=== PATIENT | male | born 1985 | race African-American/Black ===

== ENCOUNTER 2023-06-15 19:42 | Emergency (ER) | payer OTHER, SELFPAY ==
--- NOTE | 2023-06-15 | ECG_ITS ---
Test Reason : CHEST TIGHTNESS Blood Pressure : / mmHG Vent. Rate : 073 BPM Atrial Rate : 073 BPM P-R Int : 168 ms QRS Dur : 094 ms QT Int : 370 ms P-R-T Axes : 032 029 032 degrees QTc Int : 407 ms Normal sinus rhythm Cannot rule out Anterior infarct , age undetermined - could be related to body habitus Abnormal ECG No previous ECGs available Referred By: Generic ED Physician Electronically Signed By:CAROLE TRUONG
[2023-06-15 19:57] VITALS: BP 170/98; PULSE 84; O2SAT 94
[2023-06-15 21:19] VITALS: BP 155/102; PULSE 78; RESP 20; TEMP 36.6; O2SAT 98; BMI 56.3
[2023-06-15 22:27] LABS: MANUAL DIFF FLAG NO
[2023-06-15 22:28] LABS: Basophils Percent Auto 0.5 % (0-2); Eosinophils Absolute Auto 0.1 X10*3/uL (0.0-0.4); Eosinophils Percent Auto 0.8 % (0-4); Hematocrit 43.2 % (42.0-52.0); Hemoglobin 13.9 g/dl (14.0-18.0); Imm Gran Abs Auto 0.02 X10*3/uL (0.00-0.03); Imm Gran Pct Auto 0.2 % (0.0-0.4); Lymphocytes Absolute Auto 2.1 X10*3/uL (1.2-4.9); Lymphocytes Percent Auto 24.4 % (20-40); Mean Corpuscular HGB Conc 32.2 g/dl (31.0-36.0); Mean Corpuscular Hemoglobin 27.4 pg (27.0-33.0); Mean Platelet Volume 9.9 fL (9.4-12.4); Monocytes Absolute Auto 0.5 X10*3/uL (0.1-1.2); Monocytes Percent Auto 6.3 % (2-11); Neutrophils Absolute Auto 5.8 x10*3/uL (2.0-8.3); Neutrophils Percent Auto 67.8 % (45-73); Platelet Count 241 X10*3/uL (160-400); Red Blood Count 5.08 X10*6/uL (4.60-5.80); Red Cell Distribution Width 13.8 % (11.0-16.0); White Blood Count 8.5 X10*3/uL (4.8-10.8)
[2023-06-15 22:41] LABS: Alanine Aminotransferase 29 U/L (0-40); Albumin Level 4.4 g/dL (3.5-5.0); Alkaline Phosphatase 77 U/L (39-117); Anion Gap 10 (12-20); Aspartate Amino Transferase 19 U/L (5-37); Bilirubin Direct 0.1 mg/dL (0.0-0.5); Bilirubin Total 0.4 mg/dL (0.0-1.0); Blood Urea Nitrogen 12 mg/dL (9-16); Calcium 9.5 mg/dL (8.4-10.2); Carbon Dioxide 29 mmol/L (22-29); Chloride 104 mmol/L (96-108); Creatinine Clr Calc Pharmacy 161.1; Estimated Glomerular Filt Rate > 60; Glucose Random 96 mg/dL (60-115); Lipase 8 U/L (8-78); Potassium 4.3 mmol/L (3.3-5.1); Sodium 139 mmol/L (135-145); Total Protein 7.6 g/dL (6.5-8.0)
--- NOTE | 2023-06-15 22:51 | ED_ITS ---
HPI - General Adult General Chief complaint: General Medical Stated complaint: muscle cramps, tightness, diziness, nausea Time Seen by Provider: 06/15/23 22:40 Source: patient Mode of arrival: ambulatory Limitations: no limitations History of Present Illness HPI narrative: Patient comes to the emergency room muscle cramps, generalized weakness, right- sided chest pain. Patient states all his symptoms started approximately 2 weeks ago. Patient states that he was recently hospitalized in [facility], some of his psych meds were switched and patient believes this may be a side effect of his meds. Patient denies any shortness of breath, no syncopal episodes. Related Data Previous Rx's Medication Instructions Recorded cyclobenzaprine 10 mg tablet 10 mg PO TID PRN muscle spasm #10 06/16/23 tabs Allergies Allergy/AdvReac Type Severity Reaction Status Date / Time haloperidol [From Haldol] Allergy Muscle Verified 06/15/23 21:23 cramps shrimp Allergy Itching Verified 06/15/23 21:23 Review of Systems 2 Review of Systems: Constitutional : No Weight loss, No Fever, No Chills, No Night Sweats, No Fatigue, No Malaise ENT/Mouth : No Hearing loss, No Ear Pain, No Nasal Congestion, No Sinus Pain, No Hoarseness, No sore throat, No Rhinorrhea, No Swallowing Difficulty Eyes: No Eye Pain, No Swelling, No Redness, No Foreign Body, No Discharge, No Vision Changes Cardiovascular : Complaining of muscular tightness in the right side of the chest, No Chest Pain, No SOB, No Dyspnea on Exertion, No Orthopnea, No Edema, No Palpitations Respiratory : No Cough, No Sputum, No Wheezing, No Smoke Exposure, No Dyspnea Gastrointestinal : No Nausea, No Vomiting, No Diarrhea, No Constipation, No abdominal Pain, No Hematochezia, No Melena Genitourinary : no irregular bleeding, No Dysuria, No Urinary Frequency, No Hematuria, No Urinary Incontinence, No Urgency, No Flank Pain, No Urinary Flow Changes, No Hesitancy Musculoskeletal complaining of diffuse muscular aches, cramping Skin : No Skin Lesions, No rash Neuro : No Weakness, No Numbness, No Paresthesias, No Loss of Consciousness, No Dizziness, No Headache Psych : No Anxiety/Panic, No Depression, No SI/HI/AH/VH, No Social Issues, Heme/Lymph: No Bruising, No Bleeding,No Lymphadenopathy Endocrine : No Polyuria, No Polydipsia, No Temperature Intolerance [facility] Past Medical History Medical History Psychiatric disorder Social History Social History Smoked in Last 30 Days: Yes Use of substances other than those prescribed or required for medical reasons: No Advance Directives: No Advance Directives Information Provided: Yes Physical Exam ED Vital Signs: Vital Signs - 24 hr 06/15/23 21:19 06/15/23 23:37 06/15/23 23:39 Temperature 97.8 F 97.8 F Pulse Rate 78 74 74 Respiratory Rate 20 18 Blood Pressure 155/102 H 130/76 130/76 Pulse Oximetry 98 98 Oxygen Delivery Method Room Air Room Air 06/15/23 23:39 06/15/23 23:39 Temperature Pulse Rate 74 89 Respiratory Rate Blood Pressure 143/69 H 143/79 H Pulse Oximetry Oxygen Delivery Method BMI result Body Mass Index 56.3 Const Other: Appearance: Alert. Oriented X3. No acute distress. Eyes: Pupils equal, round and reactive to light. ENT: Pharynx normal. Neck: Normal inspection. Neck supple. No lymph nodes noted. No crepitus CVS: Normal heart rate and rhythm. Pulses normal. Normal S1 and S2 Respiratory: No respiratory distress. Breath sounds normal. No Wheezing. No rales Abdomen: Soft and nontender. No rigidity. No distention. Skin: Skin warm and dry. Normal skin color. Normal skin turgor. Old healed cutting scars in the left forearm Extremities: No lower extremity edema. No Lacerations. No Rash Neuro: Oriented X 3. No motor deficit. No sensory deficit. Moving all extremities. No slurred speech. CN 2 through 12 grossly intact Psych: calm, cooperative, normal affect Medical Decision Making Medical Decision Making [facility] Narrative: -my interpretation of labs: Normal hematology, normal chemistry, troponin negative, negative serology for influenza RSV and COVID -I discussed with the patient that his symptoms are likely secondary to his psych meds. At this time, patient does not have any muscular stiffness, no fever. Serotonin syndrome and neuroleptic malignant syndrome are not suspected Differential Diagnosis Differential Diagnoses: The differential diagnosis associated with the presentation includes (Medication side effect, viral syndrome, dehydration) Lab Data [facility] Lab Attestation statement: I reviewed the patient's lab results. 06/15/23 22:20 06/15/23 22:20 Labs: Lab Results 06/15/23 06/15/23 Range/Units 22:16 22:20 WBC 8.5 (4.8-10.8) X10*3/uL RBC 5.08 (4.60-5.80) X10*6/uL Hgb 13.9 L (14.0-18.0) g/dl Hct 43.2 (42.0-52.0) % MCV 85.0 (80.0-98.0) fL MCH 27.4 (27.0-33.0) pg MCHC 32.2 (31.0-36.0) g/dl RDW 13.8 (11.0-16.0) % Plt Count 241 (160-400) X10*3/uL MPV 9.9 (9.4-12.4) fL Immature Gran % (Auto) 0.2 (0.0-0.4) % Neut % (Auto) 67.8 (45-73) % Lymph % (Auto) 24.4 (20-40) % [place] % (Auto) 6.3 (2-11) % Eos % (Auto) 0.8 (0-4) % Baso % (Auto) 0.5 (0-2) % Lymph # (Auto) 2.1 (1.2-4.9) X10*3/uL [place] # (Auto) 0.5 (0.1-1.2) X10*3/uL Eos # (Auto) 0.1 (0.0-0.4) X10*3/uL Baso # (Auto) 0.0 (0.0-0.2) X10*3/uL Abs Immat Gran (auto) 0.02 (0.00-0.03) X10*3/uL Absolute Neuts (auto) 5.8 (2.0-8.3) x10*3/uL Absolute Nucleated RBC 0.000 (0.0-0.012) X10*3/uL Nucleated RBC % (auto) 0.0 (0.0-0.2) /100WBC Sodium 139 (135-145) mmol/L Potassium 4.3 (3.3-5.1) mmol/L Chloride 104 (96-108) mmol/L Carbon Dioxide 29 (22-29) mmol/L Anion Gap 10 L (12-20) BUN 12 (9-16) mg/dL Creatinine 1.00 (0.5-1.4) mg/dL Estim Creat Clear Calc 161.1 Estimated GFR > 60 Random Glucose 96 (60-115) mg/dL Calcium 9.5 (8.4-10.2) mg/dL Total Bilirubin 0.4 (0.0-1.0) mg/dL Direct Bilirubin 0.1 (0.0-0.5) mg/dL AST 19 (5-37) U/L ALT 29 (0-40) U/L Alkaline Phosphatase 77 (39-117) U/L Troponin I High Sens < 2.7 (<3.5-35.0) ng/L Total Protein 7.6 (6.5-8.0) g/dL Albumin 4.4 (3.5-5.0) g/dL Lipase 8 (8-78) U/L Influenza Type A (PCR) NEGATIVE (Negative) Influenza Type B (PCR) NEGATIVE (Negative) RSV RNA Qual (PCR) NEGATIVE (Negative) SARS-CoV-2 RNA (RT-PCR) NEGATIVE (Negative) Discharge Plan Discharge Clinical Impression: Body aches, Medication side effect Patient Disposition: Home, Self-Care Instructions: Musculoskeletal Pain (ED) Additional Instructions: Please follow-up with your medical providers tomorrow. Some of your medications may need to be weaned down or be changed. This time we will not change any of her medications. Please follow-up with your primary care physician tomorrow. If you have any worsening or new symptoms, please return to the emergency room or call 911 Prescriptions: New cyclobenzaprine 10 mg tablet 10 mg PO TID PRN (Reason: muscle spasm) Qty: 10 0RF
[2023-06-15 23:04] LABS: Influenza A PCR NEGATIVE (Negative); Influenza B PCR NEGATIVE (Negative); Resp Syncy Virus RNA Qual PCR NEGATIVE (Negative); SARS COV2 PCR INHOUSE NEGATIVE (Negative)
[2023-06-15 23:14] LABS: Troponin-I High Sensitivity < 2.7 ng/L (<3.5-35.0)
--- NOTE | 2023-06-15 23:23 | MHC.EDTECH ---
Per Doctors request,patient was giving a turkey sandwich and a can of ginegerale
--- NOTE | 2023-06-15 23:35 | MHC.EDTECH ---
Patient ate 100%of food, Ortho Static vitals were done. patient is resting comfortably at this time and call vazquez within reach
[2023-06-15 23:37] VITALS: BP 130/76; PULSE 74; RESP 18; TEMP 36.6; O2SAT 98
[2023-06-15 23:39] VITALS: BP 130/76; BP 143/69; BP 143/79; PULSE 74; PULSE 89
--- NOTE | 2023-06-16 00:03 | PC.NURSE ---
pt from home, a&ox4, respirations even and unlabored. pt reporting one week of dizziness, nausea and intermittent vomiting, pt reports inability to keep po foods down. pt reports he has been moving normal bowels, and normal urinary habits. pt reports mild abdominal cramping.
== END 2023-06-16 00:54 | disposition home or self-care (01) ==
PROVIDERS: Emergency Provider Emergency Medicine
DX: R07.89 Other chest pain (principal); R52 Pain, unspecified
CPT/HCPCS: 0241U; 36415; 80048; 80076; 83690; 84484; 85025; 93005; 99283; 99284

== ENCOUNTER → 2023-06-15 22:10 | Outpatient (BNV) | payer OTHER, SELFPAY | PROVIDERS: Emergency Provider Emergency Medicine; Visit Provider Internal Medicine | DX: R07.89 Other chest pain (principal) | CPT/HCPCS: 93010 ==

== ENCOUNTER 2023-07-10 23:19 | Emergency (ER) | payer OTHER, SELFPAY ==
[2023-07-10 23:32] VITALS: BP 134/74; BP 184/110; PULSE 85; PULSE 88; RESP 16; TEMP 36.8; O2SAT 97; O2SAT 98; BMI 55.1
--- NOTE | 2023-07-11 00:19 | MHC.EDTECH ---
Patient brought into triage area,labs,and a urine sample obtained and sent to lab.
[2023-07-11 00:24] LABS: Basophils Percent Auto 0.3 % (0-2); Eosinophils Absolute Auto 0.1 X10*3/uL (0.0-0.4); Eosinophils Percent Auto 0.8 % (0-4); Hematocrit 41.6 % (42.0-52.0); Hemoglobin 13.2 g/dl (14.0-18.0); Imm Gran Abs Auto 0.01 X10*3/uL (0.00-0.03); Imm Gran Pct Auto 0.2 % (0.0-0.4); Lymphocytes Absolute Auto 1.7 X10*3/uL (1.2-4.9); Lymphocytes Percent Auto 27.4 % (20-40); MANUAL DIFF FLAG NO; Mean Corpuscular HGB Conc 31.7 g/dl (31.0-36.0); Mean Corpuscular Volume 85.1 fL (80.0-98.0); Mean Platelet Volume 9.5 fL (9.4-12.4); Monocytes Absolute Auto 0.4 X10*3/uL (0.1-1.2); Monocytes Percent Auto 6.2 % (2-11); Neutrophils Absolute Auto 4.1 x10*3/uL (2.0-8.3); Neutrophils Percent Auto 65.1 % (45-73); Platelet Count 210 X10*3/uL (160-400); Red Blood Count 4.89 X10*6/uL (4.60-5.80); Red Cell Distribution Width 13.4 % (11.0-16.0); White Blood Count 6.3 X10*3/uL (4.8-10.8)
[2023-07-11 00:31] LABS: Appearance Urine Clear; Color Urine Yellow; Glucose Urine UA Negative (Negative); Leukocyte Esterase Urine Trace (Negative); Nitrite Urine Negative (Negative); UMIC TRIGGER UACC YES; Urine Blood Negative (Negative); Urine Ketones Trace mg/dL (Negative); Urine Protein Negative (Neg-Trace)
[2023-07-11 00:34] LABS: Bacteria Urine None Seen (None Seen); Hyaline Casts Urine 0-2 /LPF (0-2); RBC Urine 0-2 /HPF (0-2); Squamous Epithelial Cell Urine 0-2 /HPF (0-2); WBC Urine 0-5 /HPF (0-5)
[2023-07-11 00:40] LABS: Alanine Aminotransferase 33 U/L (0-40); Albumin Level 4.2 g/dL (3.5-5.0); Alkaline Phosphatase 65 U/L (39-117); Anion Gap 14 (12-20); Aspartate Amino Transferase 21 U/L (5-37); Bilirubin Total 0.3 mg/dL (0.0-1.0); Blood Urea Nitrogen 12 mg/dL (9-16); Calcium 9.2 mg/dL (8.4-10.2); Carbon Dioxide 26 mmol/L (22-29); Chloride 103 mmol/L (96-108); Creatinine Clr Calc Pharmacy 150.1; Estimated Glomerular Filt Rate > 60; Glucose Random 103 mg/dL (60-115); Sodium 139 mmol/L (135-145); Total Protein 7.2 g/dL (6.5-8.0)
[2023-07-11 02:26] VITALS: BP 160/100; PULSE 70; RESP 19; TEMP 36.7; O2SAT 98
--- NOTE | 2023-07-11 02:56 | ED_ITS ---
HPI - Abdominal Pain General Chief Complaint: Abdominal Pain Stated Complaint: ABD PAIN Time Seen by Provider: 07/11/23 02:54 Source: patient Mode of arrival: ambulatory Limitations: no limitations History of Present Illness HPI narrative: Patient history of anxiety depression recently change the medication trazodone in the nighttime to sleep not able to sleep complaining of diffuse abdominal pain with increased gas no fever no chills no vomiting patient with multiple complaints noticed to be in the waiting area eating food/chips Related Data Home Medications Medication Instructions Recorded Confirmed trazodone 50 mg tablet 100 mg PO BEDTIME 07/11/23 07/11/23 Previous Rx's Medication Instructions Recorded cephalexin 500 mg capsule 500 mg PO QID 10 days #40 caps 07/11/23 dicyclomine 20 mg tablet 20 mg PO TID #20 tabs 07/11/23 doxycycline hyclate 100 mg tablet 100 mg PO BID #20 tabs 07/11/23 omeprazole 40 mg capsule,delayed 40 mg PO DAILY #30 caps 07/11/23 release Allergies Allergy/AdvReac Type Severity Reaction Status Date / Time haloperidol [From Haldol] Allergy Muscle Verified 06/15/23 21:23 cramps shrimp Allergy Itching Verified 06/15/23 21:23 Review of Systems Review of Systems Yes all other systems are reviewed and are negative PMFSH Past Medical History Medical History Psychiatric disorder Social History Social History Advance Directives: No Advance Directives Information Provided: Yes Physical Exam ED Vital Signs: Vital Signs - 24 hr 07/10/23 23:32 07/11/23 02:26 Temperature 98.3 F 98.0 F Pulse Rate 85 70 Respiratory Rate 16 19 Blood Pressure 184/110 H 160/100 H Pulse Oximetry 97 98 Oxygen Delivery Method Room Air Room Air BMI result Body Mass Index 55.1 Appearance: Alert. Oriented X3. No acute distress. Obese Eyes: PERRLA, No Nystagmus ENT: Pharynx normal. Oral Mucosa moist Neck: Normal inspection. Neck supple. CVS: Normal heart rate and rhythm. Pulses normal. Respiratory: No respiratory distress. Equal air entry bilateral, no wheezing/rales/rhonchi Abdomen: Soft mild epigastric discomfort Bowel sounds are present, no mass palpable, no CVA tenderness Skin: Skin warm and dry. Normal skin color. Normal skin turgor. Small abscess in left gluteal area draining Extremities: No lower extremity edema. No calf tenderness psych: Anxious no SI or HI no hallucination or delusion Neuro: Oriented X 3. No motor deficit. Medical Decision Making Medical Decision Making [facility] Narrative: Patient nonspecific multiple complaints with anxiety and depression as a follow- up plan with psychiatrist will discharge patient home on Prilosec and bentyl Differential Diagnosis Differential Diagnoses: The differential diagnosis associated with the presentation includes Gastritis/IBS/anxiety/depression Lab Data [facility] Lab Attestation statement: I reviewed the patient's lab results. 07/11/23 00:18 07/11/23 00:18 Labs: Lab Results 07/11/23 Range/Units 00:18 WBC 6.3 (4.8-10.8) X10*3/uL RBC 4.89 (4.60-5.80) X10*6/uL Hgb 13.2 L (14.0-18.0) g/dl Hct 41.6 L (42.0-52.0) % MCV 85.1 (80.0-98.0) fL MCH 27.0 (27.0-33.0) pg MCHC 31.7 (31.0-36.0) g/dl RDW 13.4 (11.0-16.0) % Plt Count 210 (160-400) X10*3/uL MPV 9.5 (9.4-12.4) fL Immature Gran % (Auto) 0.2 (0.0-0.4) % Neut % (Auto) 65.1 (45-73) % Lymph % (Auto) 27.4 (20-40) % [place] % (Auto) 6.2 (2-11) % Eos % (Auto) 0.8 (0-4) % Baso % (Auto) 0.3 (0-2) % Lymph # (Auto) 1.7 (1.2-4.9) X10*3/uL [place] # (Auto) 0.4 (0.1-1.2) X10*3/uL Eos # (Auto) 0.1 (0.0-0.4) X10*3/uL Baso # (Auto) 0.0 (0.0-0.2) X10*3/uL Abs Immat Gran (auto) 0.01 (0.00-0.03) X10*3/uL Absolute Neuts (auto) 4.1 (2.0-8.3) x10*3/uL Absolute Nucleated RBC 0.000 (0.0-0.012) X10*3/uL Nucleated RBC % (auto) 0.0 (0.0-0.2) /100WBC Sodium 139 (135-145) mmol/L Potassium 4.0 (3.3-5.1) mmol/L Chloride 103 (96-108) mmol/L Carbon Dioxide 26 (22-29) mmol/L Anion Gap 14 (12-20) BUN 12 (9-16) mg/dL Creatinine 1.06 (0.5-1.4) mg/dL Estim Creat Clear Calc 150.1 Estimated GFR > 60 Random Glucose 103 (60-115) mg/dL Calcium 9.2 (8.4-10.2) mg/dL Total Bilirubin 0.3 (0.0-1.0) mg/dL AST 21 (5-37) U/L ALT 33 (0-40) U/L Alkaline Phosphatase 65 (39-117) U/L Total Protein 7.2 (6.5-8.0) g/dL Albumin 4.2 (3.5-5.0) g/dL Urine Color Yellow Urine Appearance Clear Urine pH 6.0 (5.0-9.0) Ur Specific [place] 1.020 (1.005-1.025) Urine Protein Negative (Neg-Trace) mg/dL Urine Glucose (UA) Negative (Negative) mg/dL Urine Ketones Trace (Negative) mg/dL Urine Blood Negative (Negative) Urine Nitrite Negative (Negative) Ur Leukocyte Esterase Trace H (Negative) Urine RBC 0-2 (0-2) /HPF Urine WBC 0-5 (0-5) /HPF Ur Squamous Epith Cells 0-2 (0-2) /HPF Urine Bacteria None Seen (None Seen) Hyaline Casts 0-2 (0-2) /LPF Medications Administered Discontinued Medications Generic Name Dose Route Start Last Admin Trade Name Freq PRN Reason Stop Dose Admin Cephalexin HCl 500 mg 07/11/23 04:01 07/11/23 04:13 Cephalexin 500 Mg Capsule PO 07/11/23 04:02 500 mg ONCE ONE Administration Dicyclomine HCl 20 mg 07/11/23 03:56 07/11/23 04:13 Dicyclomine Hcl 10 Mg Capsule PO 07/11/23 03:57 20 mg ONCE ONE Administration Doxycycline Monohydrate 100 mg 07/11/23 04:01 07/11/23 04:13 Doxycycline Monohydrate 100 Mg Capsule PO 07/11/23 04:02 100 mg ONCE ONE Administration Omeprazole 40 mg 07/11/23 03:56 07/11/23 04:13 Omeprazole 40 Mg Capsule.Dr PO 07/11/23 03:57 40 mg ONCE ONE Administration Discharge Plan Discharge Clinical Impression: Anxiety, Abdominal pain, Abscess Patient Disposition: Home, Self-Care Instructions: Abscess (ED), Abdominal Pain (ED), Anxiety (ED) Additional Instructions: Continue medication as prescribed by your psychiatrist Medication for abdominal pain as prescribed Antibiotic as prescribed for boil on buttocks Prescriptions: New cephalexin 500 mg capsule 500 mg PO QID 10 Days Qty: 40 0RF doxycycline hyclate 100 mg tablet 100 mg PO BID Qty: 20 0RF omeprazole 40 mg capsule,delayed release(DR/EC) 40 mg PO DAILY Qty: 30 0RF dicyclomine 20 mg tablet 20 mg PO TID Qty: 20 0RF No Action trazodone 50 mg tablet 100 mg PO BEDTIME Interventions: ED Discharge Assessment Last Done: 07/11/23 04:16 Discharge Date/Time: 07/11/23 04:24
--- NOTE | 2023-07-11 03:10 | PC.NURSE ---
Pt reports mid and LLQ abdm pain 8/ x 1 month that wrosens with movement and eating and nothing helps. Was seen in the ED for same issue and was told to follow up with pcp but has not. Pt reports nausea no vomiting. Plan of care ongoing.
[2023-07-11] MEDS: Dicyclomine HCl 10 MG CAPSULE 20 MG PO (04:13)
[2023-07-11] MEDS: Omeprazole 40 MG CAPSULE.DR PO (04:13)
[2023-07-11] MEDS: cephALEXin 500 MG CAPSULE PO (04:13)
[2023-07-11] MEDS: Doxycycline Monohydrate 100 MG CAPSULE PO (04:13)
--- NOTE | 2023-07-11 04:18 | PC.NURSE ---
Pt medicated per aug. Plan of care ongoing.
--- NOTE | 2023-07-11 04:18 | PC.NURSE ---
Pt denies allergies to ordered medication.
== END 2023-07-11 04:24 | disposition home or self-care (01) ==
PROVIDERS: Emergency Provider Internal Medicine
DX: F41.9 Anxiety disorder, unspecified (principal); L02.31 Cutaneous abscess of buttock; R10.13 Epigastric pain; Z79.899 Other long term (current) drug therapy
CPT/HCPCS: 36415; 80053; 81001; 85025; 99283; 99284

== ENCOUNTER 2023-07-11 05:52 | Inpatient (IN) | payer OTHER, SELFPAY ==
[2023-07-11 06:06] VITALS: BP 138/86; PULSE 63; RESP 18; TEMP 36.9; O2SAT 98; BMI 54.6
[2023-07-11 06:17] VITALS: BP 138/86; PULSE 63; RESP 18; TEMP 36.9; O2SAT 98
[2023-07-11 06:34] LABS: MANUAL DIFF FLAG NO
[2023-07-11 06:37] LABS: Appearance Urine Clear; Color Urine Yellow; Glucose Urine UA Negative (Negative); Leukocyte Esterase Urine Negative (Negative); Nitrite Urine Negative (Negative); Urine Blood Negative (Negative); Urine Ketones Negative (Negative); Urine Protein Negative (Neg-Trace)
--- NOTE | 2023-07-11 06:37 | PC.NURSE ---
pt brought in from waiting room. States he has been feeling safe, having SI thoughts. Reports he has a history of self harm and depression. Pt reports that the only medications he is currently taking is trazadone and states that his provider took him off of his antipsychotics and benzos due to side effects. PT belongings inventoried and secured by security- placed in locker. labs drawn, urine collected and sent down to labs. Diet ordered and care team consult ordered, safety checks initiated. This RN made note of the medications in his belongings- 2 bottles of perphenazine 4mg, 2 bottles of perphenazine 16mg, 1 bottle benzotropine 1mg, 1 bottle of citalopram 20mg, 1 bottle of trazadone 50mg, 1 bottle of cyclobenzaprine 10mg, one untable bottle of citaprolam pills and one bottle of famotidine. These bottles were locked in pt locker as per [facility] policy.
--- NOTE | 2023-07-11 06:39 | ED_ITS ---
HPI - General Adult General Chief complaint: Psychiatric Symptoms Stated complaint: Crisis Time Seen by Provider: 07/11/23 06:34 Source: patient Mode of arrival: ambulatory Limitations: no limitations History of Present Illness HPI narrative: Patient is a 37 year old assigned male at with a history of anxiety presenting to the emergency department today with SI. Patient states that he is feeling suicidal and unsafe but has no plan on how he would hurt himself. Patient denies any dizziness, lightheadedness, abdominal pain, nausea, vomiting, fever, chills, blurry vision, double vision, loss of vision, chest pain, difficulty breathing, shortness of breath, back pain, night sweats, pain with urination, increased urinary frequency, increased urinary urgency, blood in his urine or stool, syncope or a near syncopal episode, recent trauma or falls, bowel incontinence, bladder incontinence, bowel retention, bladder retention, or any other complaints at this time. Relieving factors: none Exacerbating factors: none Associated symptoms: denies other symptoms Treatments prior to arrival: none Related Data Home Medications Medication Instructions Recorded Confirmed trazodone 50 mg tablet 100 mg PO BEDTIME 07/11/23 07/11/23 Previous Rx's Medication Instructions Recorded cephalexin 500 mg capsule 500 mg PO QID 10 days #40 caps 07/11/23 dicyclomine 20 mg tablet 20 mg PO TID #20 tabs 07/11/23 doxycycline hyclate 100 mg tablet 100 mg PO BID #20 tabs 07/11/23 omeprazole 40 mg capsule,delayed 40 mg PO DAILY #30 caps 07/11/23 release Allergies Allergy/AdvReac Type Severity Reaction Status Date / Time haloperidol [From Haldol] Allergy Muscle Verified 06/15/23 21:23 cramps shrimp Allergy Itching Verified 06/15/23 21:23 Review of Systems 2 Constitutional: Constitutional: Reports no additional constitutional complaints, Denies chills, Denies fever(s) and Denies night sweats Eyes: Eyes: Reports no additional eye complaints, Denies blurry vision, Denies change in vision, Denies diplopia, Denies eye discharge, Denies loss of vision and Denies eye pain ENT: Denies dizziness Cardiovascular: Cardiovascular: Reports no additional cardiovascular complaints, Denies chest pain, Denies lightheadedness, Denies Loss of Consciousness and Denies dyspnea Respiratory: Respiratory: Reports no additional respiratory complaints and Denies dyspnea Gastrointestinal: Gastrointestinal: Reports no additional gastrointestinal complaints, Denies abdominal pain, Denies melena, Denies hematochezia, Denies change in bowel habits and Denies change in stool character Genitourinary: Genitourinary: Reports no additional male genitourinary complaints, Denies hematuria, Denies oliguria, Denies difficulty urinating, Denies dysuria, Denies urinary frequency, Denies urinary hesitancy, Denies urinary incontinence and Denies urinary urgency Musculoskeletal: Musculoskeletal: Reports no additional musculoskeletal complaints, Denies numbness and Denies tingling Neurologic: Denies dizziness, Denies loss of vision, Denies numbness and Denies tingling Psychiatric: Psychiatric: Denies homicidal ideation and Reports suicidal ideation Endocrine: Endocrine: Reports no additional endocrine complaints Hematologic/Lymphatic: Hematologic/Lymphatic: Reports no additional hematologic/lymphatic complaints Allergic/Immunologic: Allergic/Immunologic: Reports no additional allergic/immunologic complaints PMFSH Past Medical History Attestation statement: The following information was validated with the patient. Source: old records reviewed and nursing notes reviewed Medical History Psychiatric disorder Social History Social History Advance Directives: No Advance Directives Information Provided: Yes Physical Exam ED Vital Signs: Vital Signs - 24 hr 07/11/23 06:06 07/11/23 06:17 Temperature 98.4 F 98.4 F Pulse Rate 63 63 Respiratory Rate 18 18 Blood Pressure 138/86 138/86 Pulse Oximetry 98 98 Oxygen Delivery Method Room Air Room Air BMI result Body Mass Index 54.6 Const General: cooperative, no acute distress, alert and awake Nutritional Appearance: well nourished Orientation/consciousness: patient oriented x3 Limitations: no limitations HENMT Head: Yes normal to inspection and Yes atraumatic Ears: hearing grossly normal bilaterally and external ears normal General nose exam: Normal external nose present, no nasal discharge noted and no epistaxis Face and sinus: Yes normal facial exam, No abrasion and No laceration Mouth: Normal oral and palatal mucosa present, no drooling and no muffled voice Eyes General: appearance normal, both eyes and all related structures Periorbital: periorbital findings normal Eyelids: Yes eyelids normal Conjunctivae: conjunctivae normal Pupils: Equal, round and reactive pupils present EOM: EOMs intact bilaterally Neck Neck: Yes normal visual inspection, Yes full ROM and Yes no lymphadenopathy Chest Chest palpation & inspection: normal inspection of the chest Resp Effort & Inspection: normal respiratory effort and able to speak in complete sentences GI Inspection: Yes normal to inspection Neuro General: patient oriented x3 and moves all extremities Cranial nerves: Yes Equal, round and reactive pupils present Cognition (Neuro): normal cognition Motor exam (neuro): 5/5 motor strength present throughout Sensory Exam: Normal double simultaneous stimulation for sensation Coordination: [id number] test normal Extrem General: Yes normal to inspection, Yes full ROM and Yes capillary refill normal Psych Appearance: grossly normal Mental Status: mental status grossly normal Affect: Sad affect present Thought content: Suicidality present Medical Decision Making Medical Decision Making MDM Narrative: Patient is a 37 year old assigned male at with a history of anxiety presenting to the emergency department today with suicidal ideation. Patient's physical exam was as noted in the physical exam portion of this note. Patient's blood work was unremarkable. Patient's urine showed no acute process. I explained my physical exam findings as well as all test results to the patient. I answered all questions asked by the patient. Patient is awaiting CARE team evaluation. Patient's disposition will be determined after CARE team evaluation. Differential Diagnosis Differential Diagnoses: The differential diagnosis associated with the presentation includes Depression Suicidal ideation Admission/Observation Consideration of admission/observation: Escalation of care including admission/observation considered Disposition will be determined after CARE team evaluation. Lab Data [facility] Lab Attestation statement: I reviewed the patient's lab results. My interpretation of these studies and their corresponding values is that they are grossly normal. 07/11/23 06:26 07/11/23 06:26 Labs: Lab Results 07/11/23 07/11/23 Range/Units 06:25 06:26 WBC 7.2 (4.8-10.8) X10*3/uL RBC 4.91 (4.60-5.80) X10*6/uL Hgb 13.4 L (14.0-18.0) g/dl Hct 41.7 L (42.0-52.0) % MCV 84.9 (80.0-98.0) fL MCH 27.3 (27.0-33.0) pg MCHC 32.1 (31.0-36.0) g/dl RDW 13.4 (11.0-16.0) % Plt Count 204 (160-400) X10*3/uL MPV 9.9 (9.4-12.4) fL Immature Gran % (Auto) 0.7 H (0.0-0.4) % Neut % (Auto) 52.4 (45-73) % Lymph % (Auto) 37.5 (20-40) % [place] % (Auto) 7.5 (2-11) % Eos % (Auto) 1.5 (0-4) % Baso % (Auto) 0.4 (0-2) % Lymph # (Auto) 2.7 (1.2-4.9) X10*3/uL [place] # (Auto) 0.5 (0.1-1.2) X10*3/uL Eos # (Auto) 0.1 (0.0-0.4) X10*3/uL Baso # (Auto) 0.0 (0.0-0.2) X10*3/uL Abs Immat Gran (auto) 0.05 H (0.00-0.03) X10*3/uL Absolute Neuts (auto) 3.8 (2.0-8.3) x10*3/uL Absolute Nucleated RBC 0.000 (0.0-0.012) X10*3/uL Nucleated RBC % (auto) 0.0 (0.0-0.2) /100WBC Sodium 139 (135-145) mmol/L Potassium 3.5 (3.3-5.1) mmol/L Chloride 102 (96-108) mmol/L Carbon Dioxide 29 (22-29) mmol/L Anion Gap 12 (12-20) BUN 11 (9-16) mg/dL Creatinine 1.09 (0.5-1.4) mg/dL Estim Creat Clear Calc 145.1 Estimated GFR > 60 Random Glucose 87 (60-115) mg/dL Calcium 9.3 (8.4-10.2) mg/dL Total Bilirubin 0.3 (0.0-1.0) mg/dL AST 21 (5-37) U/L ALT 32 (0-40) U/L Alkaline Phosphatase 65 (39-117) U/L Total Protein 7.3 (6.5-8.0) g/dL Albumin 4.3 (3.5-5.0) g/dL Urine Color Yellow Urine Appearance Clear Urine pH 6.0 (5.0-9.0) Ur Specific [place] 1.020 (1.005-1.025) Urine Protein Negative (Neg-Trace) mg/dL Urine Glucose (UA) Negative (Negative) mg/dL Urine Ketones Negative (Negative) mg/dL Urine Blood Negative (Negative) Urine Nitrite Negative (Negative) Ur Leukocyte Esterase Negative (Negative) Urine Opiates Screen Not Detected (Not Detect) Urine Fentanyl Screen Not Detected (Not Detect) Ur Barbiturates Screen Not Detected (Not Detect) Ur Phencyclidine Scrn Not Detected (Not Detect) Ur Amphetamines Screen Not Detected (Not Detect) U Benzodiazepines Scrn Not Detected (Not Detect) Urine Cocaine Screen Not Detected (Not Detect) U Marijuana (THC) Screen Not Detected (Not Detect) Ethyl Alcohol < 10 mg/dL Discharge Plan Discharge Clinical Impression: Suicidal ideation Patient Disposition: Still a Patient Prescriptions: No Action cephalexin 500 mg capsule 500 mg PO QID 10 Days Qty: 40 0RF doxycycline hyclate 100 mg tablet 100 mg PO BID Qty: 20 0RF omeprazole 40 mg capsule,delayed release(DR/EC) 40 mg PO DAILY Qty: 30 0RF dicyclomine 20 mg tablet 20 mg PO TID Qty: 20 0RF trazodone 50 mg tablet 100 mg PO BEDTIME Interventions: [place]-Suicide Risk Severity Scale Last Done: 07/11/23 06:17
[2023-07-11 06:40] LABS: Basophils Percent Auto 0.4 % (0-2); Eosinophils Absolute Auto 0.1 X10*3/uL (0.0-0.4); Eosinophils Percent Auto 1.5 % (0-4); Hematocrit 41.7 % (42.0-52.0); Hemoglobin 13.4 g/dl (14.0-18.0); Imm Gran Abs Auto 0.05 X10*3/uL (0.00-0.03); Imm Gran Pct Auto 0.7 % (0.0-0.4); Lymphocytes Absolute Auto 2.7 X10*3/uL (1.2-4.9); Lymphocytes Percent Auto 37.5 % (20-40); Mean Corpuscular HGB Conc 32.1 g/dl (31.0-36.0); Mean Corpuscular Hemoglobin 27.3 pg (27.0-33.0); Mean Corpuscular Volume 84.9 fL (80.0-98.0); Mean Platelet Volume 9.9 fL (9.4-12.4); Monocytes Absolute Auto 0.5 X10*3/uL (0.1-1.2); Monocytes Percent Auto 7.5 % (2-11); Neutrophils Absolute Auto 3.8 x10*3/uL (2.0-8.3); Neutrophils Percent Auto 52.4 % (45-73); Platelet Count 204 X10*3/uL (160-400); Red Blood Count 4.91 X10*6/uL (4.60-5.80); Red Cell Distribution Width 13.4 % (11.0-16.0); White Blood Count 7.2 X10*3/uL (4.8-10.8)
[2023-07-11 06:44] LABS: Amphetamine Screen Urine Not Detected (Not Detect); Barbiturates, Urine Not Detected (Not Detect); Benzodiazepines Screen Urine Not Detected (Not Detect); Cannabinoid Screen Urine Not Detected (Not Detect); Cocaine Screen Urine Not Detected (Not Detect); Fentanyl, urine Not Detected (Not Detect); Opiate Screen Urine Not Detected (Not Detect); Phencyclidine Screen Urine Not Detected (Not Detect)
[2023-07-11 06:53] LABS: Alanine Aminotransferase 32 U/L (0-40); Albumin Level 4.3 g/dL (3.5-5.0); Alkaline Phosphatase 65 U/L (39-117); Anion Gap 12 (12-20); Aspartate Amino Transferase 21 U/L (5-37); Bilirubin Total 0.3 mg/dL (0.0-1.0); Blood Urea Nitrogen 11 mg/dL (9-16); Calcium 9.3 mg/dL (8.4-10.2); Carbon Dioxide 29 mmol/L (22-29); Chloride 102 mmol/L (96-108); Creatinine Clr Calc Pharmacy 145.1; Estimated Glomerular Filt Rate > 60; Ethanol < 10 mg/dL; Glucose Random 87 mg/dL (60-115); Potassium 3.5 mmol/L (3.3-5.1); Sodium 139 mmol/L (135-145); Total Protein 7.3 g/dL (6.5-8.0)
--- NOTE | 2023-07-11 11:32 | MHC.CARE ---
Patient evaluated by the CARE Team, disposition inpatient psychiatric treatment.
--- NOTE | 2023-07-11 12:01 | PHA.MEDREC ---
Pharmacy Consult ? Medication Reconciliation Pharmacy has completed the medication reconciliation. Spoke with patient in the [facility]. Patient takes cogentin 1 mg only at bedtime, not BID
[2023-07-11 12:13] LABS: COVID-19 Test Negative (Negative); IDNOW Serial# 08D9AD1C
[2023-07-11 16:30] VITALS: BP 180/102; PULSE 75; RESP 20; TEMP 36.2; O2SAT 96
[2023-07-11 17:18] VITALS: BMI 53.9
--- NOTE | 2023-07-11 17:36 | PC.ADMIT ---
Nursing admission note: Patient 37 year old male DX: Unspecified Depressive Disorder. Referred for treatment by CARE team. Patient signed conditional voluntary for admission. Patient presented to [facility] by ambulance from his home yesterday for reported abdominal pain. Following discharge he represented with c/o depression with +SI. Patient engaged easily. Calm and cooperative with admission process. Presented with good eye contact. Reports depressed mood, anergia, anhedonia, avolition. Feelings of hopelessness. Denies SI/HI plan or intent at this time. Affect congruent. Reports intermittent anxiety, feels it is hard to breathe during periods of increased anxiety. Speech normal rate, tone, andrew. Thoughts are linear and organized. Denies A/V hallucinations although endorses paranoia and suspiciousness. States at times he feels paranoid like he is being watched and things are being placed toward me noises, gets loud . I feel like I am on edge, I don't trust people and feel like they stare at me . Denies medical history although c/o ear discomfort, feels like it has water or fluid in it. BP 180/102 HR 75 on admission. Desirae Medina notified. Recent AB treatment for boil L buttocks. Skin check completed with ancillary staff SN. States he is 1 pack per day smoker, declines NRT at this time. Declines flu vaccine at this time. Reports appetite is low, unsure if he has had any weight loss. Denies sleep disturbances with use of medication although I used to stay up all night and sleep during the day . Allergy to haldol, shrimp. States he has not taken medications for 1 day. Placed on unit safety checks. See nursing admission/crisis evaluation for complete details.
[2023-07-11] MEDS: LORazepam 0.5 MG TABLET PO (18:25)
[2023-07-11 18:26] VITALS: BP 172/101; PULSE 81; RESP 20
[2023-07-11 19:24] VITALS: BP 175/89; PULSE 76
[2023-07-11] MEDS: Acetaminophen 325 MG TABLET 650 MG PO (22:16)
[2023-07-11] MEDS: traZODone HCL 100 MG TABLET PO (22:18)
[2023-07-12] MEDS: Acetaminophen 325 MG TABLET 650 MG PO ×2 (05:03→18:01)
--- NOTE | 2023-07-12 08:54 | P.HPPS_ITS ---
HPI Date of Service: 07/12/23 Chief Complaint: Crisis Sources of Information: patient interviewed, chart reviewed and crisis/core team assessment reviewed HPI Subjective Notes: [place] Warning and Conditional Voluntary Narrative: Patient is a 37 year old male with hx of MDD who initially came to [facility] [place] [facility] via ambulance for abdominal pain then reported suicidal ideation d/t increased depressive symptoms. Per crisis report, pt reported poor appetite, loss of interest in activities, not attending to ADLs, increased anxiety, and worry in his health and the future. He reported some paranoia where he believes people are after him. He reported this coincided with his PCP changing his medications d/t his stomach issues. Pt reports feelings of hopelessness, stating I don't want to live anymore . Pt not a good historian regarding his current and past mental health. During admission assessment, pt presents calm and cooperative. Pt stated, I came to the hospital because I felt suicidal and anxious. I feel like I have no structure to my day. I know I needed to talk about my mental health issue. I don't want to kill myself but I keep thinking about it. I think it's part of my mental illness . Pt reports he doesn't always feel this way and it's only been like this for the past few weeks after my stomach issues started . denies HI/VH/AH. Pt did not disclose any paranoid thoughts. He reports having an intake appointment at [facility] for 07/20/23. He does not recall past medication trials; denies any current or past psychiatric providers. Past Psychiatric History: hx of multiple inpatient psychiatric hospitalizations. ([facility], [facility], [facility]) Pt reports his last inpatient hospitalization was 2-3 years ago. hx of cutting; reports he has not done this in a long time . hx of OD on Trazodone which caused him to be admitted to [facility]'s psychiatric unit, which was his last hospitalization according to pt. Medical Evaluation Reviewed: Yes [facility] Medical History Psychiatric disorder Family History: unknown. Social History: Lives with his mother in [place], [place]. single, no children, unemployed. Highest level of education completed is 10th grade; did not obtain GED. Substance History: denies Trauma History: yes Diagnostics Vital Signs (24Hr): Vital Signs - 24 hr 07/11/23 16:30 07/11/23 18:26 07/11/23 19:24 Temperature 97.1 F Pulse Rate 75 81 76 Respiratory Rate 20 20 Blood Pressure 180/102 H 172/101 H 175/89 H Pulse Oximetry 96 Oxygen Delivery Method Room Air BMI result Body Mass Index 53.9 Labs 07/11/23 06:26 07/12/23 08:49 Labs: Laboratory Results - last 48 hr 07/11/23 07/11/23 07/11/23 06:25 06:26 11:31 WBC 7.2 RBC 4.91 Hgb 13.4 L Hct 41.7 L MCV 84.9 MCH 27.3 MCHC 32.1 RDW 13.4 Plt Count 204 MPV 9.9 Immature Gran % (Auto) 0.7 H Neut % (Auto) 52.4 Lymph % (Auto) 37.5 [place] % (Auto) 7.5 Eos % (Auto) 1.5 Baso % (Auto) 0.4 Lymph # (Auto) 2.7 [place] # (Auto) 0.5 Eos # (Auto) 0.1 Baso # (Auto) 0.0 Abs Immat Gran (auto) 0.05 H Absolute Neuts (auto) 3.8 Absolute Nucleated RBC 0.000 Nucleated RBC % (auto) 0.0 Sodium 139 Potassium 3.5 Chloride 102 Carbon Dioxide 29 Anion Gap 12 BUN 11 Creatinine 1.09 Estim Creat Clear Calc 145.1 Estimated GFR > 60 Random Glucose 87 Calcium 9.3 Total Bilirubin 0.3 AST 21 ALT 32 Alkaline Phosphatase 65 Total Protein 7.3 Albumin 4.3 Urine Color Yellow Urine Appearance Clear Urine pH 6.0 Ur Specific [place] 1.020 Urine Protein Negative Urine Glucose (UA) Negative Urine Ketones Negative Urine Blood Negative Urine Nitrite Negative Ur Leukocyte Esterase Negative Urine Opiates Screen Not Detected Urine Fentanyl Screen Not Detected Ur Barbiturates Screen Not Detected Ur Phencyclidine Scrn Not Detected Ur Amphetamines Screen Not Detected U Benzodiazepines Scrn Not Detected Urine Cocaine Screen Not Detected U Marijuana (THC) Screen Not Detected Ethyl Alcohol < 10 COVID-19 (MEGAN) Negative COVID-19 Clin Com See Note Meds/Allergies Meds Home Medications Medication Instructions Recorded Confirmed Type benztropine 1 mg tablet 1 mg PO BEDTIME 07/11/23 07/11/23 History trazodone 50 mg tablet 100 mg PO BEDTIME 07/11/23 07/11/23 History Allergies Allergies Allergy/AdvReac Type Severity Reaction Status Date / Time haloperidol [From Haldol] Allergy Muscle Verified 06/15/23 21:23 cramps shrimp Allergy Itching Verified 06/15/23 21:23 Mental Status Exam Mental Status Exam Narrative: Pt is alert and oriented; behavior is cooperative and calm; dressed in casual attire; mood is described as depressed and anxious ; eye contact appropriate; Speech is normal rate, volume and prosody and not pressured; thought process is organized and goal directed; Thought content is on tx; denies HI/VH/AH. Pt reports suicidal ideation with no plan. Assessment & Plan Assessment & Plan (1) MDD (major depressive disorder), recurrent episode: Status: Acute Code(s): F33.9 - Major depressive disorder, recurrent, unspecified Plan Patient is a 37 year old male with hx of MDD who initially came to [facility] [place] [facility] via ambulance for abdominal pain then reported suicidal ideation d/t increased depressive symptoms. Plan: CV 15 minute safety checks Continue home medications Trazodone 100mg PO bedtime Omeprazole 40mg PO daily Dicyclomine 20mg PO TID Start: Risperidal 1mg PO BID PRN psychosis Ativan 0.5mg PO BID PRN anxiety Referral to PHP? discharge planning Patient educated on: diagnosis, medication risk/benefits and therapeutic strategies Informed Consent: understands Reason for continued inpatient stay Substantial Risk for: harm to self and med/psych decompensation Statement Statement: I have reviewed the history and physical and performed a pertinent examination on my patient. No changes have occurred unless specified. If the History and Physical was not performed prior to admission, the Hospitalist's service will be consulted for completing the admission physical. Time Spent With Patient Time: Total time managing care of this patient today _60___ minutes.
[2023-07-12 09:07] VITALS: BP 128/68; PULSE 64; RESP 18; TEMP 36.3; O2SAT 96
[2023-07-12 09:13] LABS: Alanine Aminotransferase 30 U/L (0-40); Albumin Level 4.1 g/dL (3.5-5.0); Alkaline Phosphatase 65 U/L (39-117); Anion Gap 11 (12-20); Aspartate Amino Transferase 18 U/L (5-37); Bilirubin Total 0.2 mg/dL (0.0-1.0); Blood Urea Nitrogen 15 mg/dL (9-16); Calcium 9.4 mg/dL (8.4-10.2); Carbon Dioxide 30 mmol/L (22-29); Chloride 104 mmol/L (96-108); Cholesterol 210 mg/dL (<200); Creatinine Clr Calc Pharmacy 146.6; Estimated Glomerular Filt Rate > 60; Glucose Fasting 101 mg/dL (60-99); HDL Cholesterol 26 mg/dL (>40); LDL Cholesterol Calculated 164 mg/dL (<100); Sodium 141 mmol/L (135-145); Total Protein 6.9 g/dL (6.5-8.0); Triglycerides 100 mg/dL (<150)
[2023-07-12] MEDS: FLUoxetine HCl 10 MG CAPSULE PO (18:02)
[2023-07-12] MEDS: Cyclobenzaprine HCl 5 MG TABLET PO (18:03)
[2023-07-12] MEDS: Dicyclomine HCl 10 MG CAPSULE 20 MG PO (18:03)
[2023-07-12 19:45] VITALS: BP 141/85; PULSE 80; RESP 18; TEMP 36.5; O2SAT 95
[2023-07-12] MEDS: traZODone HCL 100 MG TABLET PO (22:20)
[2023-07-13] MEDS: Acetaminophen 325 MG TABLET 650 MG PO ×3 (03:53→18:28)
[2023-07-13 08:00] VITALS: BP 138/62; PULSE 64; RESP 18; TEMP 36.2; O2SAT 97
--- NOTE | 2023-07-13 08:57 | P.PNPSI_ITS ---
Subjective Subjective Date of Service: 07/13/23 Reason For Visit: Crisis Subjective Notes: Conditional Voluntary Interim History: Reviewed with . Social with peers, attending groups. Pt reports feeling depressed today; pt stated, I'm thinking about my family and my mom. I know I gotta motivate myself to do stuff. I'm going to try to shower today and go to some groups . Pt reports suicidal ideation; pt stated, I'm having some suicidal thoughts because of the pain in my stomach . denies HI/VH/AH. Medication Compliance: Yes Side effects from medications: No Attending Groups: Intermittent Review of Systems Constitutional: Reports as per HPI Eyes: Reports as per HPI Reports as per HPI Cardiovascular: Reports as per HPI Respiratory: Reports as per HPI Gastrointestinal: Reports as per HPI Genitourinary: Reports as per HPI Musculoskeletal: Reports as per HPI Skin/Breast: Reports as per HPI Reports as per HPI Psychiatric: Reports as per HPI Endocrine: Reports as per HPI Hematologic/Lymphatic: Reports as per HPI Allergic/Immunologic: Reports as per HPI Mental Status Exam Mental Status Exam Narrative: Pt is alert and oriented; behavior is cooperative, friendly and calm; dressed in casual attire; mood is described as depressed ; eye contact appropriate; Speech is normal rate, volume and prosody and not pressured; thought process is organized and goal directed; Thought content is on tx; otherwise pertinent to relevant topics and without any delusional content, paranoid ideations or grandiosity; denies HI/AH/VH. Pt reports suicidal ideation with no plan. Diagnostics Vital Signs (24Hr): Vital Signs - 24 hr 07/12/23 09:07 07/12/23 19:45 Temperature 97.4 F 97.7 F Pulse Rate 64 80 Respiratory Rate 18 18 Blood Pressure 128/68 141/85 H Pulse Oximetry 96 95 Oxygen Delivery Method Room Air Room Air BMI result Body Mass Index 53.9 Labs 07/11/23 06:26 07/12/23 08:49 Labs: Laboratory Results - last 48 hr 07/11/23 07/12/23 11:31 08:49 Sodium 141 Potassium 4.0 Chloride 104 Carbon Dioxide 30 H Anion Gap 11 L BUN 15 Creatinine 1.07 Estim Creat Clear Calc 146.6 Estimated GFR > 60 Fasting Glucose 101 H Calcium 9.4 Total Bilirubin 0.2 AST 18 ALT 30 Alkaline Phosphatase 65 Total Protein 6.9 Albumin 4.1 Triglycerides 100 Cholesterol 210 H LDL Cholesterol, Calc 164 H HDL Cholesterol 26 L COVID-19 (MEGAN) Negative COVID-19 Clin Com See Note Medications Medications Current Medications Acetaminophen (Acetaminophen 325 Mg Tablet) 650 mg PO Q6H PRN PRN Reason: Headache/Pain Mild Scale (1-3) Last Admin: 07/13/23 03:53 Dose: 650 mg Al Hydroxide/Mg Hydroxide (Magnesium Hydrox/Alum Hydrox 30 Ml Oral.Susp) 30 ml PO Q6H PRN PRN Reason: Heartburn/Nausea Cyclobenzaprine HCl (Cyclobenzaprine Hcl 5 Mg Tablet) 5 mg PO TID PRN PRN Reason: Muscle Spasm Last Admin: 07/12/23 18:03 Dose: 5 mg Dicyclomine HCl (Dicyclomine Hcl 10 Mg Capsule) 20 mg PO TIDAC [facility] Last Admin: 07/12/23 18:03 Dose: 20 mg Fluoxetine HCl (Fluoxetine Hcl 10 Mg Capsule) 10 mg PO DAILY [facility] Last Admin: 07/12/23 18:02 Dose: 10 mg Hydroxyzine HCl (Hydroxyzine Hcl 25 Mg Tablet) 25 mg PO Q6H PRN PRN Reason: Restlessness Lorazepam (Lorazepam 0.5 Mg Tablet) 0.5 mg PO BID PRN PRN Reason: Anxiety Last Admin: 07/11/23 18:25 Dose: 0.5 mg Magnesium Hydroxide (Milk Of Magnesia 30 Ml Oral.Susp) 30 ml PO DAILY PRN PRN Reason: Constipation Omeprazole (Omeprazole 40 Mg Capsule.Dr) 40 mg PO DAILY@0630 [facility] Risperidone (Risperidone 1 Mg Tablet) 1 mg PO BID PRN PRN Reason: Psychosis Trazodone HCl (Trazodone Hcl 100 Mg Tablet) 100 mg PO BEDTIME [facility] Last Admin: 07/12/23 22:20 Dose: 100 mg Allergies Allergies Allergy/AdvReac Type Severity Reaction Status Date / Time haloperidol [From Haldol] Allergy Muscle Verified 06/15/23 21:23 cramps shrimp Allergy Itching Verified 06/15/23 21:23 Assessment & Plan Assessment & Plan (1) MDD (major depressive disorder), recurrent episode: Status: Acute Code(s): F33.9 - Major depressive disorder, recurrent, unspecified Plan Patient is a 37 year old male with hx of MDD who initially came to [facility] ED via ambulance for abdominal pain then reported suicidal ideation d/t increased depressive symptoms. Plan: CV 15 minute safety checks Continue home medications Trazodone 100mg PO bedtime Omeprazole 40mg PO daily Dicyclomine 20mg PO TID Start: Risperidal 1mg PO BID PRN psychosis Ativan 0.5mg PO BID PRN anxiety Referral to [facility]? discharge planning 07/13:Social with peers, attending groups. Pt reports feeling depressed today; pt stated, I'm thinking about my family and my mom. I know I gotta motivate myself to do stuff. I'm going to try to shower today and go to some groups . Pt reports suicidal ideation; pt stated, I'm having some suicidal thoughts because of the pain in my stomach . denies HI/VH/AH. Continue current tx plan. Patient educated on: diagnosis, medication risk/benefits and therapeutic strategies Informed Consent: understands Reason for continued inpatient stay Substantial Risk for: harm to self and med/psych decompensation Time Spent With Patient Time: Total time managing care of this patient today _30___ minutes.
[2023-07-13] MEDS: Dicyclomine HCl 10 MG CAPSULE 20 MG PO ×2 (09:14→18:28)
[2023-07-13] MEDS: Omeprazole 40 MG CAPSULE.DR PO (09:14)
[2023-07-13] MEDS: FLUoxetine HCl 10 MG CAPSULE PO (09:14)
[2023-07-13] MEDS: Cyclobenzaprine HCl 5 MG TABLET PO (18:27)
[2023-07-13 19:45] VITALS: BP 179/97; PULSE 65; RESP 18; TEMP 36.7; O2SAT 100
[2023-07-13] MEDS: traZODone HCL 100 MG TABLET PO (23:15)
[2023-07-14] MEDS: Acetaminophen 325 MG TABLET 650 MG PO ×4 (00:14→22:09)
[2023-07-14] MEDS: Omeprazole 40 MG CAPSULE.DR PO (06:47)
[2023-07-14 08:37] VITALS: BP 119/56; PULSE 65; RESP 16; TEMP 36.5; O2SAT 96
[2023-07-14] MEDS: Dicyclomine HCl 10 MG CAPSULE 20 MG PO ×3 (08:52→16:47)
[2023-07-14] MEDS: FLUoxetine HCl 10 MG CAPSULE PO (08:52)
[2023-07-14 08:58] LABS: Glucose, Whole Blood 140 mg/dL (60-115)
--- NOTE | 2023-07-14 09:17 | P.PNPSI_ITS ---
Subjective Subjective Date of Service: 07/14/23 Reason For Visit: Crisis Subjective Notes: Conditional Voluntary Interim History: Reviewed with . Pt continues to report feeling depressed ; pt stated, my stomach pain is making me emotional . pt reports he is not interested in attending PHP after discharge but would like to go to respite. denies SI/HI/VH/AH. Medication Compliance: Yes Side effects from medications: No Attending Groups: Intermittent Review of Systems Constitutional: Reports as per HPI Eyes: Reports as per HPI Reports as per HPI Cardiovascular: Reports as per HPI Respiratory: Reports as per HPI Gastrointestinal: Reports as per HPI Genitourinary: Reports as per HPI Musculoskeletal: Reports as per HPI Skin/Breast: Reports as per HPI Reports as per HPI Psychiatric: Reports as per HPI Endocrine: Reports as per HPI Hematologic/Lymphatic: Reports as per HPI Allergic/Immunologic: Reports as per HPI Mental Status Exam Mental Status Exam Narrative: Pt is alert and oriented; behavior is cooperative, friendly and calm; dressed in casual attire; mood is described as depressed ; eye contact appropriate; Speech is normal rate, volume and prosody and not pressured; thought process is organized and goal directed; Thought content is on tx; otherwise pertinent to relevant topics and without any delusional content, paranoid ideations or grandiosity; denies SI/HI/AH/VH. Diagnostics Vital Signs (24Hr): Vital Signs - 24 hr 07/13/23 19:45 07/14/23 08:37 Temperature 98.0 F 97.7 F Pulse Rate 65 65 Respiratory Rate 18 16 Blood Pressure 179/97 H 119/56 L Pulse Oximetry 100 96 Oxygen Delivery Method Room Air Room Air BMI result Body Mass Index 53.9 Labs 07/11/23 06:26 07/12/23 08:49 Labs: Laboratory Results - last 48 hr 07/14/23 08:52 POC Glucose 140 H Medications Medications Current Medications Acetaminophen (Acetaminophen 325 Mg Tablet) 650 mg PO Q6H PRN PRN Reason: Headache/Pain Mild Scale (1-3) Last Admin: 07/14/23 06:47 Dose: 650 mg Al Hydroxide/Mg Hydroxide (Magnesium Hydrox/Alum Hydrox 30 Ml Oral.Susp) 30 ml PO Q6H PRN PRN Reason: Heartburn/Nausea Cyclobenzaprine HCl (Cyclobenzaprine Hcl 5 Mg Tablet) 5 mg PO TID PRN PRN Reason: Muscle Spasm Last Admin: 07/14/23 00:00 Dose: 5 mg Dicyclomine HCl (Dicyclomine Hcl 10 Mg Capsule) 20 mg PO TIDAC [facility] Last Admin: 07/14/23 08:52 Dose: 20 mg Fluoxetine HCl (Fluoxetine Hcl 10 Mg Capsule) 10 mg PO DAILY [facility] Last Admin: 07/14/23 08:52 Dose: 10 mg Hydroxyzine HCl (Hydroxyzine Hcl 25 Mg Tablet) 25 mg PO Q6H PRN PRN Reason: Restlessness Lorazepam (Lorazepam 0.5 Mg Tablet) 0.5 mg PO BID PRN PRN Reason: Anxiety Last Admin: 07/11/23 18:25 Dose: 0.5 mg Magnesium Hydroxide (Milk Of Magnesia 30 Ml Oral.Susp) 30 ml PO DAILY PRN PRN Reason: Constipation Omeprazole (Omeprazole 40 Mg Capsule.Dr) 40 mg PO DAILY@0630 [facility] Last Admin: 07/14/23 06:47 Dose: 40 mg Risperidone (Risperidone 1 Mg Tablet) 1 mg PO BID PRN PRN Reason: Psychosis Trazodone HCl (Trazodone Hcl 100 Mg Tablet) 100 mg PO BEDTIME [facility] Last Admin: 07/13/23 23:15 Dose: 100 mg Allergies Allergies Allergy/AdvReac Type Severity Reaction Status Date / Time haloperidol [From Haldol] Allergy Muscle Verified 06/15/23 21:23 cramps shrimp Allergy Itching Verified 06/15/23 21:23 Assessment & Plan Assessment & Plan (1) MDD (major depressive disorder), recurrent episode: Status: Acute Code(s): F33.9 - Major depressive disorder, recurrent, unspecified Plan Patient is a 37 year old male with hx of MDD who initially came to [facility] via ambulance for abdominal pain then reported suicidal ideation d/t increased depressive symptoms. Plan: CV 15 minute safety checks Continue home medications Trazodone 100mg PO bedtime Omeprazole 40mg PO daily Dicyclomine 20mg PO TID Start: Risperidal 1mg PO BID PRN psychosis Ativan 0.5mg PO BID PRN anxiety Referral to PHP? discharge planning 07/13:Social with peers, attending groups. Pt reports feeling depressed today; pt stated, I'm thinking about my family and my mom. I know I gotta motivate myself to do stuff. I'm going to try to shower today and go to some groups . Pt reports suicidal ideation; pt stated, I'm having some suicidal thoughts because of the pain in my stomach . denies HI/VH/AH. Continue current tx plan. 07/14: Pt continues to report feeling depressed ; pt stated, my stomach pain is making me emotional . pt reports he is not interested in attending PHP after discharge but would like to go to respite. denies SI/HI/VH/AH. Continue current tx plan. Patient educated on: diagnosis, medication risk/benefits and therapeutic strategies Informed Consent: understands Reason for continued inpatient stay Substantial Risk for: med/psych decompensation Time Spent With Patient Time: Total time managing care of this patient today _30___ minutes.
[2023-07-14] MEDS: Cyclobenzaprine HCl 5 MG TABLET PO ×3 (12:46→22:10)
[2023-07-14 20:30] VITALS: BP 126/59; PULSE 64; RESP 18; TEMP 36.6; O2SAT 100
[2023-07-14] MEDS: traZODone HCL 100 MG TABLET PO (22:55)
[2023-07-15] MEDS: Acetaminophen 325 MG TABLET 650 MG PO (06:17)
[2023-07-15] MEDS: Cyclobenzaprine HCl 5 MG TABLET PO (06:17)
[2023-07-15] MEDS: Omeprazole 40 MG CAPSULE.DR PO (06:17)
[2023-07-15] MEDS: Dicyclomine HCl 10 MG CAPSULE 20 MG PO ×3 (06:18→17:57)
[2023-07-15 08:20] VITALS: BP 165/103; PULSE 64; TEMP 36.2; O2SAT 96
[2023-07-15] MEDS: FLUoxetine HCl 20 MG CAPSULE PO (08:37)
--- NOTE | 2023-07-15 17:45 | P.PNPSI_ITS ---
Subjective Subjective Date of Service: 07/15/23 Reason For Visit: Crisis Interim History: Patient reports he is feeling better. Tolerating current medication plan. Says he slept well. BP was elevated. Cuff size may have been too small. Patient says he has no hx of HTN. Appears more visible in the milieu. Denies SI/HI/VH/AH. Review of Systems Constitutional: Reports as per HPI, Reports no additional constitutional complaints, Denies chills, Denies fever(s) and Denies night sweats Eyes: Reports as per HPI, Reports no additional eye complaints, Denies blurry vision, Denies change in vision, Denies diplopia, Denies eye discharge, Denies loss of vision and Denies eye pain Reports as per HPI and Denies dizziness Cardiovascular: Reports as per HPI, Reports no additional cardiovascular complaints, Denies chest pain, Denies lightheadedness, Denies Loss of Consciousness and Denies dyspnea Respiratory: Reports as per HPI, Reports no additional respiratory complaints and Denies dyspnea Gastrointestinal: Reports as per HPI, Reports no additional gastrointestinal complaints, Denies abdominal pain, Denies melena, Denies hematochezia, Denies change in bowel habits and Denies change in stool character Genitourinary: Reports no additional male genitourinary complaints, Reports as per HPI, Denies hematuria, Denies oliguria, Denies difficulty urinating, Denies dysuria, Denies urinary frequency, Denies urinary hesitancy, Denies urinary incontinence and Denies urinary urgency Musculoskeletal: Reports no additional musculoskeletal complaints, Reports as per HPI, Denies numbness and Denies tingling Skin/Breast: Reports as per HPI Reports as per HPI, Denies dizziness, Denies loss of vision, Denies numbness and Denies tingling Psychiatric: Reports as per HPI, Denies homicidal ideation and Reports suicidal ideation Endocrine: Reports no additional endocrine complaints and Reports as per HPI Hematologic/Lymphatic: Reports no additional hematologic/lymphatic complaints and Reports as per HPI Allergic/Immunologic: Reports no additional allergic/immunologic complaints and Reports as per HPI Mental Status Exam Mental Status Exam Narrative: Pt is alert and oriented; behavior is cooperative, friendly and calm; dressed in casual attire; mood is described as depressed ; eye contact appropriate; Speech is normal rate, volume and prosody and not pressured; thought process is organized and goal directed; Thought content is on tx; otherwise pertinent to relevant topics and without any delusional content, paranoid ideations or grandiosity; denies SI/HI/AH/VH. Diagnostics Vital Signs (24Hr): Vital Signs - 24 hr 07/14/23 20:30 07/15/23 08:20 Temperature 97.9 F 97.2 F Pulse Rate 64 64 Respiratory Rate 18 Blood Pressure 126/59 L 165/103 H Pulse Oximetry 100 96 Oxygen Delivery Method Room Air Room Air BMI result Body Mass Index 53.9 Labs 07/11/23 06:26 07/12/23 08:49 Labs: Laboratory Results - last 48 hr 07/14/23 08:52 POC Glucose 140 H Medications Medications Current Medications Acetaminophen (Acetaminophen 325 Mg Tablet) 650 mg PO Q6H PRN PRN Reason: Headache/Pain Mild Scale (1-3) Last Admin: 07/15/23 06:17 Dose: 650 mg Al Hydroxide/Mg Hydroxide (Magnesium Hydrox/Alum Hydrox 30 Ml Oral.Susp) 30 ml PO Q6H PRN PRN Reason: Heartburn/Nausea Cyclobenzaprine HCl (Cyclobenzaprine Hcl 5 Mg Tablet) 5 mg PO TID PRN PRN Reason: Muscle Spasm Last Admin: 07/15/23 06:17 Dose: 5 mg Dicyclomine HCl (Dicyclomine Hcl 10 Mg Capsule) 20 mg PO TIDAC [facility] Last Admin: 07/15/23 11:55 Dose: 20 mg Fluoxetine HCl (Fluoxetine Hcl 20 Mg Capsule) 20 mg PO DAILY [facility] Last Admin: 07/15/23 08:37 Dose: 20 mg Hydroxyzine HCl (Hydroxyzine Hcl 25 Mg Tablet) 25 mg PO Q6H PRN PRN Reason: Restlessness Magnesium Hydroxide (Milk Of Magnesia 30 Ml Oral.Susp) 30 ml PO DAILY PRN PRN Reason: Constipation Omeprazole (Omeprazole 40 Mg Capsule.Dr) 40 mg PO DAILY@0630 [facility] Last Admin: 07/15/23 06:17 Dose: 40 mg Risperidone (Risperidone 1 Mg Tablet) 1 mg PO BID PRN PRN Reason: Psychosis Trazodone HCl (Trazodone Hcl 100 Mg Tablet) 100 mg PO BEDTIME [facility] Last Admin: 07/14/23 22:55 Dose: 100 mg Allergies Allergies Allergy/AdvReac Type Severity Reaction Status Date / Time haloperidol [From Haldol] Allergy Muscle Verified 06/15/23 21:23 cramps shrimp Allergy Itching Verified 06/15/23 21:23 Assessment & Plan Assessment & Plan (1) MDD (major depressive disorder), recurrent episode: Status: Acute Code(s): F33.9 - Major depressive disorder, recurrent, unspecified Plan Patient is a 37 year old male with hx of MDD who initially came to [facility] via ambulance for abdominal pain then reported suicidal ideation d/t increased depressive symptoms. Plan: CV 15 minute safety checks Continue home medications Trazodone 100mg PO bedtime Omeprazole 40mg PO daily Dicyclomine 20mg PO TID Start: Risperidal 1mg PO BID PRN psychosis Ativan 0.5mg PO BID PRN anxiety Referral to PHP? discharge planning 07/13:Social with peers, attending groups. Pt reports feeling depressed today; pt stated, I'm thinking about my family and my mom. I know I gotta motivate myself to do stuff. I'm going to try to shower today and go to some groups . Pt reports suicidal ideation; pt stated, I'm having some suicidal thoughts because of the pain in my stomach . denies HI/VH/AH. Continue current tx plan. 07/14: Pt continues to report feeling depressed ; pt stated, my stomach pain is making me emotional . pt reports he is not interested in attending PHP after discharge but would like to go to respite. denies SI/HI/VH/AH. Continue current tx plan. 07/15: Continue current plan of care. Reason for continued inpatient stay Substantial Risk for: harm to self and inability to function Time Spent With Patient Time: Total time managing care of this patient today ____ minutes.
[2023-07-15 18:00] VITALS: BP 133/77; PULSE 75; RESP 18; TEMP 36.2; O2SAT 98
[2023-07-15] MEDS: Milk of Magnesia 30 ML ORAL.SUSP PO (18:00)
[2023-07-16] MEDS: traZODone HCL 100 MG TABLET PO ×2 (00:11→23:08)
[2023-07-16] MEDS: Cyclobenzaprine HCl 5 MG TABLET PO (00:12)
[2023-07-16] MEDS: Omeprazole 40 MG CAPSULE.DR PO (05:56)
[2023-07-16] MEDS: Dicyclomine HCl 10 MG CAPSULE 20 MG PO ×3 (05:56→16:34)
[2023-07-16 08:00] VITALS: BP 137/64; PULSE 70; RESP 14; TEMP 36.4; O2SAT 98
[2023-07-16] MEDS: FLUoxetine HCl 20 MG CAPSULE PO (08:07)
--- NOTE | 2023-07-16 16:51 | HO.PSYCHPN ---
Subjective Subjective Date of Service: 07/16/23 Reason For Visit: Crisis Interim History: Patient reports he has a right earache. External. O/E has an area of redness on the helix. Looks like a picked scab. No swelling. Also complaining of feeling restless and anxious. Tolerating current medication plan. Says he gets restless at night and has to get up to move. Appears more visible in the milieu. Denies SI/HI/VH/AH. Review of Systems Constitutional: Reports as per HPI, Reports no additional constitutional complaints, Denies chills, Denies fever(s) and Denies night sweats Eyes: Reports as per HPI, Reports no additional eye complaints, Denies blurry vision, Denies change in vision, Denies diplopia, Denies eye discharge, Denies loss of vision and Denies eye pain Reports as per HPI and Denies dizziness Cardiovascular: Reports as per HPI, Reports no additional cardiovascular complaints, Denies chest pain, Denies lightheadedness, Denies Loss of Consciousness and Denies dyspnea Respiratory: Reports as per HPI, Reports no additional respiratory complaints and Denies dyspnea Gastrointestinal: Reports as per HPI, Reports no additional gastrointestinal complaints, Denies abdominal pain, Denies melena, Denies hematochezia, Denies change in bowel habits and Denies change in stool character Genitourinary: Reports no additional male genitourinary complaints, Reports as per HPI, Denies hematuria, Denies oliguria, Denies difficulty urinating, Denies dysuria, Denies urinary frequency, Denies urinary hesitancy, Denies urinary incontinence and Denies urinary urgency Musculoskeletal: Reports no additional musculoskeletal complaints, Reports as per HPI, Denies numbness and Denies tingling Skin/Breast: Reports as per HPI Reports as per HPI, Denies dizziness, Denies loss of vision, Denies numbness and Denies tingling Psychiatric: Reports as per HPI, Denies homicidal ideation and Reports suicidal ideation Endocrine: Reports no additional endocrine complaints and Reports as per HPI Hematologic/Lymphatic: Reports no additional hematologic/lymphatic complaints and Reports as per HPI Allergic/Immunologic: Reports no additional allergic/immunologic complaints and Reports as per HPI Mental Status Exam Mental Status Exam Narrative: Pt is alert and oriented; behavior is cooperative, friendly and calm; dressed in casual attire; mood is described as depressed ; eye contact appropriate; Speech is normal rate, volume and prosody and not pressured; thought process is organized and goal directed; Thought content is on tx; otherwise pertinent to relevant topics and without any delusional content, paranoid ideations or grandiosity; denies SI/HI/AH/VH. Diagnostics Vital Signs (24Hr): Vital Signs - 24 hr 07/15/23 18:00 07/16/23 08:00 Temperature 97.2 F 97.6 F Pulse Rate 75 70 Respiratory Rate 18 14 Blood Pressure 133/77 137/64 Pulse Oximetry 98 98 Oxygen Delivery Method Room Air Room Air BMI result Body Mass Index 53.9 Labs 07/11/23 06:26 07/12/23 08:49 Medications Medications Current Medications Acetaminophen (Acetaminophen 325 Mg Tablet) 650 mg PO Q6H PRN PRN Reason: Headache/Pain Mild Scale (1-3) Last Admin: 07/15/23 06:17 Dose: 650 mg Al Hydroxide/Mg Hydroxide (Magnesium Hydrox/Alum Hydrox 30 Ml Oral.Susp) 30 ml PO Q6H PRN PRN Reason: Heartburn/Nausea Bacitracin (Bacitracin Oint 14 Gm Tube) 1 appl TOPICAL BID [facility]; Protocol Last Admin: 07/16/23 12:36 Dose: Not Given Cyclobenzaprine HCl (Cyclobenzaprine Hcl 5 Mg Tablet) 5 mg PO TID PRN PRN Reason: Muscle Spasm Last Admin: 07/16/23 00:12 Dose: 5 mg Dicyclomine HCl (Dicyclomine Hcl 10 Mg Capsule) 20 mg PO TIDAC [facility] Last Admin: 07/16/23 16:34 Dose: 20 mg Fluoxetine HCl (Fluoxetine Hcl 20 Mg Capsule) 20 mg PO DAILY [facility] Last Admin: 07/16/23 08:07 Dose: 20 mg Gabapentin (Gabapentin 100 Mg Capsule) 100 mg PO BID [facility] Hydroxyzine HCl (Hydroxyzine Hcl 25 Mg Tablet) 25 mg PO Q6H PRN PRN Reason: Restlessness Magnesium Hydroxide (Milk Of Magnesia 30 Ml Oral.Susp) 30 ml PO DAILY PRN PRN Reason: Constipation Last Admin: 07/15/23 18:00 Dose: 30 ml Omeprazole (Omeprazole 40 Mg Capsule.Dr) 40 mg PO DAILY@0630 [facility] Last Admin: 07/16/23 05:56 Dose: 40 mg Risperidone (Risperidone 1 Mg Tablet) 1 mg PO BID PRN PRN Reason: Psychosis Trazodone HCl (Trazodone Hcl 100 Mg Tablet) 100 mg PO BEDTIME [facility] Last Admin: 07/16/23 00:11 Dose: 100 mg Allergies Allergies Allergy/AdvReac Type Severity Reaction Status Date / Time haloperidol [From Haldol] Allergy Muscle Verified 06/15/23 21:23 cramps shrimp Allergy Itching Verified 06/15/23 21:23 Assessment & Plan Assessment & Plan (1) MDD (major depressive disorder), recurrent episode: Status: Acute Code(s): F33.9 - Major depressive disorder, recurrent, unspecified Plan Patient is a 37 year old male with hx of MDD who initially came to [facility] via ambulance for abdominal pain then reported suicidal ideation d/t increased depressive symptoms. Plan: CV 15 minute safety checks Continue home medications Trazodone 100mg PO bedtime Omeprazole 40mg PO daily Dicyclomine 20mg PO TID Start: Risperidal 1mg PO BID PRN psychosis Ativan 0.5mg PO BID PRN anxiety Referral to PHP? discharge planning 07/13:Social with peers, attending groups. Pt reports feeling depressed today; pt stated, I'm thinking about my family and my mom. I know I gotta motivate myself to do stuff. I'm going to try to shower today and go to some groups . Pt reports suicidal ideation; pt stated, I'm having some suicidal thoughts because of the pain in my stomach . denies HI/VH/AH. Continue current tx plan. 07/14: Pt continues to report feeling depressed ; pt stated, my stomach pain is making me emotional . pt reports he is not interested in attending PHP after discharge but would like to go to respite. denies SI/HI/VH/AH. Continue current tx plan. 07/15: Continue current plan of care. 07/16: Bacitracin to the ear. Add GBP 100 mg BID for anxiety and restlessness. Reason for continued inpatient stay Substantial Risk for: harm to self, inability to function and rapid decompensation Time Spent With Patient Time: Total time managing care of this patient today ____ minutes.
[2023-07-16 19:47] VITALS: BP 136/82; PULSE 75; RESP 18; TEMP 36.4; O2SAT 100
[2023-07-16] MEDS: risperiDONE 1 MG TABLET PO (23:08)
[2023-07-16] MEDS: Gabapentin 100 MG CAPSULE PO (23:08)
[2023-07-16] MEDS: Bacitracin Oint 14 GM TUBE 1 APPL TOPICAL (23:15)
[2023-07-17 06:30] VITALS: BP 141/76; PULSE 72; RESP 18; O2SAT 99
[2023-07-17] MEDS: Dicyclomine HCl 10 MG CAPSULE 20 MG PO ×3 (06:52→17:13)
[2023-07-17] MEDS: Omeprazole 40 MG CAPSULE.DR PO (06:52)
[2023-07-17] MEDS: FLUoxetine HCl 20 MG CAPSULE PO (08:30)
[2023-07-17] MEDS: Gabapentin 100 MG CAPSULE PO ×2 (08:30→21:15)
[2023-07-17] MEDS: Milk of Magnesia 30 ML ORAL.SUSP PO (08:49)
--- NOTE | 2023-07-17 08:56 | HO.PSYCHPN ---
Subjective Subjective Date of Service: 07/17/23 Reason For Visit: Crisis Subjective Notes: Conditional Voluntary Interim History: Reviewed with . Social with peers. attending groups. Pt reports feeling good today; pt stated, my depression is better. I'm anxious about things I don't have control over . denies SI/HI/VH/AH. Pt plans on following up with outpatient providers. Medication Compliance: Yes Side effects from medications: No Attending Groups: Intermittent Review of Systems Constitutional: Reports as per HPI Eyes: Reports as per HPI Reports as per HPI Cardiovascular: Reports as per HPI Respiratory: Reports as per HPI Gastrointestinal: Reports as per HPI Genitourinary: Reports as per HPI Musculoskeletal: Reports as per HPI Skin/Breast: Reports as per HPI Reports as per HPI Psychiatric: Reports as per HPI Endocrine: Reports as per HPI Hematologic/Lymphatic: Reports as per HPI Allergic/Immunologic: Reports as per HPI Mental Status Exam Mental Status Exam Narrative: Pt is alert and oriented; behavior is cooperative, friendly and calm; dressed in casual attire; mood is described as good ; eye contact appropriate; Speech is normal rate, volume and prosody and not pressured; thought process is organized and goal directed; Thought content is on tx; denies SI/HI/VH/AH. Diagnostics Vital Signs (24Hr): Vital Signs - 24 hr 07/16/23 19:47 07/17/23 06:30 Temperature 97.5 F Pulse Rate 75 72 Respiratory Rate 18 18 Blood Pressure 136/82 141/76 H Pulse Oximetry 100 99 Oxygen Delivery Method Room Air Room Air BMI result Body Mass Index 53.9 Labs 07/11/23 06:26 07/12/23 08:49 Medications Medications Current Medications Acetaminophen (Acetaminophen 325 Mg Tablet) 650 mg PO Q6H PRN PRN Reason: Headache/Pain Mild Scale (1-3) Last Admin: 07/15/23 06:17 Dose: 650 mg Al Hydroxide/Mg Hydroxide (Magnesium Hydrox/Alum Hydrox 30 Ml Oral.Susp) 30 ml PO Q6H PRN PRN Reason: Heartburn/Nausea Bacitracin (Bacitracin Oint 14 Gm Tube) 1 appl TOPICAL BID [facility]; Protocol Last Admin: 07/17/23 08:30 Dose: Not Given Cyclobenzaprine HCl (Cyclobenzaprine Hcl 5 Mg Tablet) 5 mg PO TID PRN PRN Reason: Muscle Spasm Last Admin: 07/16/23 00:12 Dose: 5 mg Dicyclomine HCl (Dicyclomine Hcl 10 Mg Capsule) 20 mg PO TIDAC [facility] Last Admin: 07/17/23 06:52 Dose: 20 mg Fluoxetine HCl (Fluoxetine Hcl 20 Mg Capsule) 20 mg PO DAILY [facility] Last Admin: 07/17/23 08:30 Dose: 20 mg Gabapentin (Gabapentin 100 Mg Capsule) 100 mg PO BID [facility] Last Admin: 07/17/23 08:30 Dose: 100 mg Hydroxyzine HCl (Hydroxyzine Hcl 25 Mg Tablet) 25 mg PO Q6H PRN PRN Reason: Restlessness Magnesium Hydroxide (Milk Of Magnesia 30 Ml Oral.Susp) 30 ml PO DAILY PRN PRN Reason: Constipation Last Admin: 07/17/23 08:49 Dose: 30 ml Omeprazole (Omeprazole 40 Mg Capsule.Dr) 40 mg PO DAILY@0630 [facility] Last Admin: 07/17/23 06:52 Dose: 40 mg Risperidone (Risperidone 1 Mg Tablet) 1 mg PO BID PRN PRN Reason: Psychosis Last Admin: 07/16/23 23:08 Dose: 1 mg Trazodone HCl (Trazodone Hcl 100 Mg Tablet) 100 mg PO BEDTIME [facility] Last Admin: 07/16/23 23:08 Dose: 100 mg Allergies Allergies Allergy/AdvReac Type Severity Reaction Status Date / Time haloperidol [From Haldol] Allergy Muscle Verified 06/15/23 21:23 cramps shrimp Allergy Itching Verified 06/15/23 21:23 Assessment & Plan Assessment & Plan (1) MDD (major depressive disorder), recurrent episode: Status: Acute Code(s): F33.9 - Major depressive disorder, recurrent, unspecified Plan Patient is a 37 year old male with hx of MDD who initially came to [facility] via ambulance for abdominal pain then reported suicidal ideation d/t increased depressive symptoms. Plan: CV 15 minute safety checks Continue home medications Trazodone 100mg PO bedtime Omeprazole 40mg PO daily Dicyclomine 20mg PO TID Start: Risperidal 1mg PO BID PRN psychosis Ativan 0.5mg PO BID PRN anxiety Referral to PHP? discharge planning 07/13:Social with peers, attending groups. Pt reports feeling depressed today; pt stated, I'm thinking about my family and my mom. I know I gotta motivate myself to do stuff. I'm going to try to shower today and go to some groups . Pt reports suicidal ideation; pt stated, I'm having some suicidal thoughts because of the pain in my stomach . denies HI/VH/AH. Continue current tx plan. 07/14: Pt continues to report feeling depressed ; pt stated, my stomach pain is making me emotional . pt reports he is not interested in attending PHP after discharge but would like to go to respite. denies SI/HI/VH/AH. Continue current tx plan. 07/15: Continue current plan of care. 07/16: Bacitracin to the ear. Add GBP 100 mg BID for anxiety and restlessness. 07/17: Social with peers. attending groups. Pt reports feeling good today; pt stated, my depression is better. I'm anxious about things I don't have control over . denies SI/HI/VH/AH. Pt plans on following up with outpatient providers. plan to discharge tomorrow. Patient educated on: diagnosis, medication risk/benefits and therapeutic strategies Informed Consent: understands Reason for continued inpatient stay Substantial Risk for: stable for discharge Time Spent With Patient Time: Total time managing care of this patient today _30___ minutes.
[2023-07-17 20:45] VITALS: BP 175/91; PULSE 78; RESP 18; TEMP 36.2; O2SAT 98
[2023-07-17] MEDS: traZODone HCL 100 MG TABLET PO (21:15)
[2023-07-17] MEDS: risperiDONE 1 MG TABLET PO (21:15)
[2023-07-18] MEDS: Dicyclomine HCl 10 MG CAPSULE 20 MG PO (06:55)
[2023-07-18] MEDS: Omeprazole 40 MG CAPSULE.DR PO (06:55)
[2023-07-18 07:30] VITALS: BP 136/69; PULSE 73; TEMP 36.4; O2SAT 99
[2023-07-18] MEDS: Gabapentin 100 MG CAPSULE PO (08:15)
[2023-07-18] MEDS: FLUoxetine HCl 20 MG CAPSULE PO (08:15)
--- NOTE | 2023-07-18 10:00 | PM.PSYDC ---
DS: Providers Provider Date of Service: 07/18/23 Date of admission: 07/11/23 15:46 Date of discharge: 07/18/23 Primary care physician: Unknown Physician Admitting clinician: Desirae Medina Attending physician on admission: Augie Trimble Attending physician on discharge: Augie Trimble DS: Diagnosis Discharge Diagnosis (1) MDD (major depressive disorder), recurrent episode: Status: Acute DS: Medications Discharge Medications Home Medications: Home Medications Medication Instructions Recorded Confirmed trazodone 50 mg tablet 100 mg PO BEDTIME 07/11/23 07/11/23 Previous Rx's Medication Instructions Recorded dicyclomine 20 mg tablet 20 mg PO TID #20 tabs 07/11/23 omeprazole 40 mg capsule,delayed 40 mg PO DAILY #30 caps 07/11/23 release fluoxetine 20 mg capsule 20 mg PO DAILY 30 days #30 caps 07/17/23 gabapentin 100 mg capsule 100 mg PO BID 30 days #60 caps 07/17/23 Mental Status Exam Mental Status Exam Narrative: Pt is alert and oriented; behavior is cooperative and calm; dressed in casual attire; mood is described as good ; eye contact appropriate; Speech is normal rate, volume and prosody and not pressured; thought process is organized; Thought content is on discharge; denies SI/HI/VH/AH. DS: Summary Hospital Course Hospital Course: Patient is a 37 year old male with hx of MDD who initially came to [facility] ED via ambulance for abdominal pain then reported suicidal ideation d/t increased depressive symptoms. Per crisis report, pt reported poor appetite, loss of interest in activities, not attending to ADLs, increased anxiety, and worry in his health and the future. He reported some paranoia where he believes people are after him. He reported this coincided with his PCP changing his medications d/t his stomach issues. Pt reports feelings of hopelessness, stating I don't want to live anymore . Pt not a good historian regarding his current and past mental health. During admission assessment, pt presents calm and cooperative. Pt stated, I came to the hospital because I felt suicidal and anxious. I feel like I have no structure to my day. I know I needed to talk about my mental health issue. I don't want to kill myself but I keep thinking about it. I think it's part of my mental illness . Pt reports he doesn't always feel this way and it's only been like this for the past few weeks after my stomach issues started . denies HI/VH/AH. Pt did not disclose any paranoid thoughts. He reports having an intake appointment at [facility] for 07/20/23. He does not recall past medication trials; denies any current or past psychiatric providers. During hospital course, CV 15 minute safety checks Continue home medications Trazodone 100mg PO bedtime Omeprazole 40mg PO daily Dicyclomine 20mg PO TID Start: Risperidal 1mg PO BID PRN psychosis Ativan 0.5mg PO BID PRN anxiety Social with peers, attending groups. Pt reports feeling depressed today; pt stated, I'm thinking about my family and my mom. I know I gotta motivate myself to do stuff. I'm going to try to shower today and go to some groups . Pt reports suicidal ideation; pt stated, I'm having some suicidal thoughts because of the pain in my stomach . denies HI/VH/AH. Continue current tx plan. Pt continues to report feeling depressed ; pt stated, my stomach pain is making me emotional . pt reports he is not interested in attending PHP after discharge but would like to go to respite. denies SI/HI/VH/AH. Bacitracin to the ear. Add GBP 100 mg BID for anxiety and restlessness. Social with peers. attending groups. Pt reports feeling good today; pt stated, my depression is better. I'm anxious about things I don't have control over . denies SI/HI/VH/AH. Pt plans on following up with outpatient providers. Time spent discussing smoking cessation with patient: 3 to 10 minutes Status at Discharge Cognitive/behavioral status at discharge: Patient was interviewed prior to discharge and found to be fully oriented and without any SI or HI. Patient has insight and demonstrates good judgment in terms of wanting to pursue treatment. Patient is not in imminent risk of harm to self or others and has a safety plan that includes presenting to the closest ER or calling 911 if feeling unsafe. Functional status at discharge: independent ambulation Overall status at discharge: patient is back to baseline Time Spent with Patient Time attestation: Total time managing care of this patient today _30___ minutes. Time spent: Less than 30 minutes Discharge Plan Discharge Anticipated Discharge Date/Time: 07/18/23 12:00 Patient Disposition: Home, Self-Care Discharge Diagnosis: MDD Referrals: Pati Servin (Therapy) [Other] - 07/21/23 10:00 am ( IN OFFICE APPOINTMENT) Haydee Hernandez (Psychiatry) [Other] - 08/08/23 9:00 am (TELEHEALTH APPOINTMENT -Please call [facility] and provide them with an email address. ) [facility] [Provider Group] - 1 Week (PCP is Kahlil Connell @ [facility] [phone] the office will call patient directly to schedule hospital discharge follow-up appointment.) Discharge Medications: New fluoxetine 20 mg Capsule 20 mg PO DAILY 30 Days Qty: 30 0RF gabapentin 100 mg Capsule 100 mg PO BID 30 Days Qty: 60 0RF Continued omeprazole 40 mg capsule,delayed release(DR/EC) 40 mg PO DAILY Qty: 30 0RF dicyclomine 20 mg tablet 20 mg PO TID Qty: 20 0RF trazodone 50 mg tablet 100 mg PO BEDTIME Discontinued cephalexin 500 mg capsule 500 mg PO QID 10 Days Qty: 40 0RF doxycycline hyclate 100 mg tablet 100 mg PO BID Qty: 20 0RF benztropine 1 mg tablet 1 mg PO BEDTIME Discharge Orders: Discharge Order (Routine); Ordered 07/18/23 Ordered By: Desirae Medina Diet: Regular diet Activity on Discharge: As tolerated Stand Alone Forms: Patient Portal Discharge page, Community Support Care Plan Goals: Maintain mood and safe behaviors Take medications as prescribed Practice coping skills Continue with outpatient providers and reach out to them as needed Health Concerns: Mood stability and behaviors Plan of Treatment: Follow up with your PCP, psychiatric provider and other outpatient providers regarding above concerns Take medications as prescribed Assessment: Patient was interviewed prior to discharge and found to be fully oriented and without any SI or HI. Patient has insight and demonstrates good judgment in terms of wanting to pursue treatment. Patient is not in imminent risk of harm to self or others and has a safety plan that includes presenting to the closest ER or calling 911 if feeling unsafe. Discharge Date/Time: 07/18/23 11:45
== END 2023-07-18 11:45 | disposition home or self-care (01) | DRG 885 ==
LOC: HO.ED 08:28 → HO.PADLT16 16:05
PROVIDERS: Physician Assistant Medical; Admitting Provider Registered Nurse; Emergency Provider Emergency Medicine Emergency Medical Services; Responsible Provider Registered Nurse; Visit Provider Psychiatry & Neurology Psychiatry
DX: F33.9 Major depressive disorder, recurrent, unspecified (principal); R45.851 Suicidal ideations; F17.210 Nicotine dependence, cigarettes, uncomplicated; Z71.6 Tobacco abuse counseling; Z20.822 Contact with and (suspected) exposure to COVID-19; Z79.899 Other long term (current) drug therapy
CPT/HCPCS: 36415; 80053; 80061; 80307; 81003; 82947; 85025; 87635; 99284; S9485

== ENCOUNTER → 2023-07-11 15:46 | Outpatient (BNV) | payer OTHER, SELFPAY | PROVIDERS: Admitting Provider Registered Nurse; Emergency Provider Emergency Medicine Emergency Medical Services; Responsible Provider Registered Nurse; Visit Provider Registered Nurse | DX: F33.2 Major depressive disorder, recurrent severe without psychotic features (principal) | CPT/HCPCS: 90792; 99231; 99232 ==

== ENCOUNTER → 2023-07-11 15:46 | Outpatient (BNV) | payer OTHER, SELFPAY | PROVIDERS: Admitting Provider Registered Nurse; Emergency Provider Emergency Medicine Emergency Medical Services; Responsible Provider Registered Nurse; Visit Provider Psychiatry & Neurology Psychiatry | DX: F33.2 Major depressive disorder, recurrent severe without psychotic features (principal) | CPT/HCPCS: 99238 ==

== ENCOUNTER 2023-07-22 02:39 | Emergency (ER) | payer OTHER, SELFPAY ==
[2023-07-22 02:48] VITALS: BP 146/93; BP 168/80; PULSE 100; PULSE 93; RESP 18; TEMP 36.4; O2SAT 97; O2SAT 99; BMI 38.5
[2023-07-22 03:18] LABS: MANUAL DIFF FLAG NO
[2023-07-22 03:19] LABS: Basophils Percent Auto 0.3 % (0-2); Eosinophils Absolute Auto 0.1 X10*3/uL (0.0-0.4); Eosinophils Percent Auto 0.8 % (0-4); Hematocrit 41.7 % (42.0-52.0); Imm Gran Abs Auto 0.02 X10*3/uL (0.00-0.03); Imm Gran Pct Auto 0.3 % (0.0-0.4); Lymphocytes Absolute Auto 1.5 X10*3/uL (1.2-4.9); Lymphocytes Percent Auto 23.2 % (20-40); Mean Corpuscular HGB Conc 33.6 g/dl (31.0-36.0); Mean Corpuscular Hemoglobin 28.1 pg (27.0-33.0); Mean Corpuscular Volume 83.6 fL (80.0-98.0); Mean Platelet Volume 10.1 fL (9.4-12.4); Monocytes Absolute Auto 0.5 X10*3/uL (0.1-1.2); Monocytes Percent Auto 8.1 % (2-11); Neutrophils Absolute Auto 4.4 x10*3/uL (2.0-8.3); Neutrophils Percent Auto 67.3 % (45-73); Platelet Count 235 X10*3/uL (160-400); Red Blood Count 4.99 X10*6/uL (4.60-5.80); Red Cell Distribution Width 13.6 % (11.0-16.0); White Blood Count 6.6 X10*3/uL (4.8-10.8)
[2023-07-22 03:20] LABS: Appearance Urine Clear; Color Urine Yellow; Glucose Urine UA Negative (Negative); Leukocyte Esterase Urine Negative (Negative); Nitrite Urine Negative (Negative); PH 5.5 (5.0-9.0); Specific Gravity - Urine >= 1.030 (1.005-1.025); Urine Blood Negative (Negative); Urine Ketones Trace mg/dL (Negative); Urine Protein Trace mg/dL (Neg-Trace)
[2023-07-22 03:22] LABS: Bacteria Urine None Seen (None Seen); Hyaline Casts Urine 0-2 /LPF (0-2); RBC Urine 0-2 /HPF (0-2); Squamous Epithelial Cell Urine 0-2 /HPF (0-2); WBC Urine 0-5 /HPF (0-5)
[2023-07-22 03:28] LABS: Amphetamine Screen Urine Not Detected (Not Detect); Barbiturates, Urine Not Detected (Not Detect); Benzodiazepines Screen Urine Not Detected (Not Detect); Cannabinoid Screen Urine Not Detected (Not Detect); Cocaine Screen Urine Not Detected (Not Detect); Fentanyl, urine Not Detected (Not Detect); Opiate Screen Urine Not Detected (Not Detect); Phencyclidine Screen Urine Not Detected (Not Detect)
[2023-07-22 03:30] LABS: COVID-19 Test Positive (Negative); IDNOW Serial# 152EDE1D
[2023-07-22 03:37] LABS: Alanine Aminotransferase 55 U/L (0-40); Albumin Level 4.5 g/dL (3.5-5.0); Alkaline Phosphatase 75 U/L (39-117); Anion Gap 12 (12-20); Aspartate Amino Transferase 39 U/L (5-37); Bilirubin Direct 0.1 mg/dL (0.0-0.5); Bilirubin Total 0.3 mg/dL (0.0-1.0); Blood Urea Nitrogen 15 mg/dL (9-16); Calcium 9.5 mg/dL (8.4-10.2); Carbon Dioxide 28 mmol/L (22-29); Chloride 102 mmol/L (96-108); Estimated Glomerular Filt Rate > 60; Ethanol < 10 mg/dL; Glucose Random 125 mg/dL (60-115); Lipase 16 U/L (8-78); Magnesium 2.3 mg/dL (1.6-2.6); Potassium 4.2 mmol/L (3.3-5.1); Sodium 138 mmol/L (135-145); Total Protein 7.5 g/dL (6.5-8.0)
--- NOTE | 2023-07-22 03:45 | ED_ITS ---
HPI - Psych General Chief Complaint: Psychiatric Symptoms Stated Complaint: CRISIS Time Seen by Provider: 07/22/23 03:18 Source: patient Mode of arrival: ambulatory Limitations: no limitations History of Present Illness HPI Narrative: 37 yo male with PMH of depression anxiety and GERD here with c/o just leaving 07/18 and meds not helping he is having negative thoughts because of them and now he isn't taking them. No SI MD complaint: feels depressed and anxiety Onset (ago): day(s) (2) Duration: constant History of same: Yes Relieving factors: none Exacerbating factors: other Context: not taking psychiatric medications and new medication(s) Associated psychiatric symptoms: depression Associated symptoms: denies other symptoms Treatments prior to arrival: none Related Data Home Medications Medication Instructions Recorded Confirmed trazodone 50 mg tablet 100 mg PO BEDTIME 07/11/23 07/22/23 Previous Rx's Medication Instructions Recorded omeprazole 40 mg capsule,delayed 40 mg PO DAILY #30 caps 07/11/23 release fluoxetine 20 mg capsule 20 mg PO DAILY 30 days #30 caps 07/17/23 gabapentin 100 mg capsule 100 mg PO BID 30 days #60 caps 07/17/23 Allergies Allergy/AdvReac Type Severity Reaction Status Date / Time haloperidol [From Haldol] Allergy Muscle Verified 06/15/23 21:23 cramps shrimp Allergy Itching Verified 06/15/23 21:23 Review of Systems 2 Review of Systems: Constitutional : No Fever, No Chills ENT/Mouth : No Ear Pain, No Nasal Congestion, No sore throat Eyes: No Eye Pain, No Swelling, No Redness Cardiovascular : No Chest Pain, No SOB Respiratory : No Cough, No Sputum, No Dyspnea Gastrointestinal : No Nausea, No Vomiting, No Diarrhea, No Hematochezia, No Melena Genitourinary : No Dysuria, No Urinary Frequency, No Hematuria Musculoskeletal : No Myalgias Skin : No Skin Lesions, No rash Neuro : No Weakness, No Numbness, No Paresthesias, No Dizziness, No Headache Psych : positive Anxiety, positive Depression, no SI/HI Heme/Lymph: No Lymphadenopathy Endocrine : No Polyuria, No Polydipsia All other systems reviewed and are negative PMFSH Past Medical History Attestation statement: The following information was validated with the patient. Source: old records reviewed Medical History Suicidal ideation Psychiatric disorder Social History Social History Household Members: Family Household Members Other:: 1 Housing: Apartment Do you presently have visiting nurse or other home services: No Patient Tobacco Use Status: Current everyday Tobacco user Tobacco use type: Cigarette Cigarette Packs Per Day: 1 Cigarettes Per Day: 20.0 Second Hand Smoke Exposure: No service: No Sexual orientation: Straight/Heterosexual Physical Exam 2 Vital Signs: Vital Signs: Last Vital Signs Temp 97.6 F 07/22/23 02:48 Pulse 93 07/22/23 02:48 Resp 18 07/22/23 02:48 BP 146/93 H 07/22/23 02:48 Pulse Ox 99 07/22/23 02:48 O2 Del Method Room Air 07/22/23 02:48 BMI result Body Mass Index 38.5 Appearance: Alert. Oriented X3. No acute distress. Anxious Eyes: Pupils equal, round and reactive to light. ENT: Pharynx normal. Neck: Normal inspection. Neck supple. CVS: Normal heart rate and rhythm. Pulses normal. Respiratory: No respiratory distress. Breath sounds normal. Abdomen: Soft and nontender. Skin: Skin warm and dry. Normal skin color. Normal skin turgor. Extremities: No lower extremity edema. No calf ttp Neuro: Oriented X 3. No motor deficit. No sensory deficit. Cn2-12 intact Course Course Course Narrative: Physician observation started at 345pm.. Patient placed in physician observation because the patient needed more time for CARE team to assess the need for psych admission. At the time observation was started the patient's vitals were stable, patient is alert and oriented but anxious, Neuro: nonfocal, CV RRR, Lungs clear Medical Decision Making Medical Decision Making [facility] Narrative: 37 yo male with PMH of GERD and depression just admitted here and DC on 07/18 he feels his meds arent helping and he has negative thoughts he also didn't take some of his medications - at this time labs, CARE team consult and place in observation. He has covid but asymptomatic Differential Diagnosis Differential Diagnoses: The differential diagnosis associated with the presentation includes anxiety, depression Admission/Observation Consideration of admission/observation: Escalation of care including admission/observation considered observe until seen by CARE team Consult Healthcare Provider Management of the patient was discussed with: Behavioral Health Provider Lab Data [facility] Lab Attestation statement: I reviewed the patient's lab results. 07/22/23 03:12 07/22/23 03:12 Labs: Lab Results 07/22/23 Range/Units 03:12 WBC 6.6 (4.8-10.8) X10*3/uL RBC 4.99 (4.60-5.80) X10*6/uL Hgb 14.0 (14.0-18.0) g/dl Hct 41.7 L (42.0-52.0) % MCV 83.6 (80.0-98.0) fL MCH 28.1 (27.0-33.0) pg MCHC 33.6 (31.0-36.0) g/dl RDW 13.6 (11.0-16.0) % Plt Count 235 (160-400) X10*3/uL MPV 10.1 (9.4-12.4) fL Immature Gran % (Auto) 0.3 (0.0-0.4) % Neut % (Auto) 67.3 (45-73) % Lymph % (Auto) 23.2 (20-40) % [place] % (Auto) 8.1 (2-11) % Eos % (Auto) 0.8 (0-4) % Baso % (Auto) 0.3 (0-2) % Lymph # (Auto) 1.5 (1.2-4.9) X10*3/uL [place] # (Auto) 0.5 (0.1-1.2) X10*3/uL Eos # (Auto) 0.1 (0.0-0.4) X10*3/uL Baso # (Auto) 0.0 (0.0-0.2) X10*3/uL Abs Immat Gran (auto) 0.02 (0.00-0.03) X10*3/uL Absolute Neuts (auto) 4.4 (2.0-8.3) x10*3/uL Absolute Nucleated RBC 0.000 (0.0-0.012) X10*3/uL Nucleated RBC % (auto) 0.0 (0.0-0.2) /100WBC Sodium 138 (135-145) mmol/L Potassium 4.2 (3.3-5.1) mmol/L Chloride 102 (96-108) mmol/L Carbon Dioxide 28 (22-29) mmol/L Anion Gap 12 (12-20) BUN 15 (9-16) mg/dL Creatinine 1.27 (0.5-1.4) mg/dL Estim Creat Clear Calc 118.0 Estimated GFR > 60 Random Glucose 125 H (60-115) mg/dL Calcium 9.5 (8.4-10.2) mg/dL Magnesium 2.3 (1.6-2.6) mg/dL Total Bilirubin 0.3 (0.0-1.0) mg/dL Direct Bilirubin 0.1 (0.0-0.5) mg/dL AST 39 H (5-37) U/L ALT 55 H (0-40) U/L Alkaline Phosphatase 75 (39-117) U/L Total Protein 7.5 (6.5-8.0) g/dL Albumin 4.5 (3.5-5.0) g/dL Lipase 16 (8-78) U/L Urine Color Yellow Urine Appearance Clear Urine pH 5.5 (5.0-9.0) Ur Specific [place] >= 1.030 H (1.005-1.025) Urine Protein Trace (Neg-Trace) mg/dL Urine Glucose (UA) Negative (Negative) mg/dL Urine Ketones Trace (Negative) mg/dL Urine Blood Negative (Negative) Urine Nitrite Negative (Negative) Ur Leukocyte Esterase Negative (Negative) Urine RBC 0-2 (0-2) /HPF Urine WBC 0-5 (0-5) /HPF Ur Squamous Epith Cells 0-2 (0-2) /HPF Urine Bacteria None Seen (None Seen) Hyaline Casts 0-2 (0-2) /LPF Urine Opiates Screen Not Detected (Not Detect) Urine Fentanyl Screen Not Detected (Not Detect) Ur Barbiturates Screen Not Detected (Not Detect) Ur Phencyclidine Scrn Not Detected (Not Detect) Ur Amphetamines Screen Not Detected (Not Detect) U Benzodiazepines Scrn Not Detected (Not Detect) Urine Cocaine Screen Not Detected (Not Detect) U Marijuana (THC) Screen Not Detected (Not Detect) Ethyl Alcohol < 10 mg/dL COVID-19 (MEGAN) Positive A (Negative) COVID-19 Clin Com See Note External Record Review External record reviewed: Inpatient record Discharge Plan Discharge Clinical Impression: COVID-19, Acute anxiety Patient Disposition: Still a Patient Prescriptions: No Action omeprazole 40 mg capsule,delayed release(DR/EC) 40 mg PO DAILY Qty: 30 0RF trazodone 50 mg tablet 100 mg PO BEDTIME fluoxetine 20 mg Capsule 20 mg PO DAILY 30 Days Qty: 30 0RF gabapentin 100 mg Capsule 100 mg PO BID 30 Days Qty: 60 0RF
[2023-07-22] MEDS: traZODone HCL 100 MG TABLET PO ×2 (03:52→21:33)
[2023-07-22] MEDS: Omeprazole 40 MG CAPSULE.DR PO (11:00)
[2023-07-22] MEDS: Gabapentin 100 MG CAPSULE PO ×2 (11:00→21:33)
[2023-07-22] MEDS: FLUoxetine HCl 20 MG CAPSULE PO (11:00)
[2023-07-22 17:14] VITALS: RESP 18
--- NOTE | 2023-07-22 17:25 | MHC.CARE ---
Patient evaluated by the CARE Team, disposition not reached at this time, plan is to reassess in the morning. ED provider updated
--- NOTE | 2023-07-22 17:37 | PC.NURSE ---
Marcelo Covid+ and resting in bed most of the day. Appetite good. Adherent with medications. In good behavioral control. Denies SI/HI
--- NOTE | 2023-07-22 19:06 | PC.NURSE ---
patient appears to remain at rest at present respirations are even and unlabored patient appears in no distress.
[2023-07-23] MEDS: Acetaminophen 325 MG TABLET 650 MG PO (03:38)
[2023-07-23 03:43] VITALS: BP 130/94; PULSE 96; RESP 18; TEMP 37.7; O2SAT 96
[2023-07-23] MEDS: Gabapentin 100 MG CAPSULE PO (09:01)
[2023-07-23] MEDS: Omeprazole 40 MG CAPSULE.DR PO (09:01)
[2023-07-23] MEDS: FLUoxetine HCl 20 MG CAPSULE PO (09:01)
[2023-07-23 12:33] LABS: COVID-19 Test Negative (Negative); IDNOW Serial# 08D9AD1C
[2023-07-23 14:25] VITALS: RESP 18
--- NOTE | 2023-07-23 16:40 | PC.NURSE ---
Marcelo was OOB this shift and pleasant when engaged. No behavioral concerns. Medication adherent. Tested for Covid and test came back negative. Marcelo in milieu and engaging with peers. Denies SI/HI/AVH.
--- NOTE | 2023-07-23 17:00 | MHC.CARE ---
Patient was reevaluated by the CARE Team today and appears to be significantly better, clear for discharge home. [facility] will follow up with him in the community. ED provider, Dr. Garner updated and in agreement with plan.
--- NOTE | 2023-07-25 15:40 | MHC.CARE ---
RAD team completed a referral for [facility] for follow up support and [facility] stated that they will call him tomorrow 07/26/23 to start his follow up. RAD will follow up tomorrow to confirm.
== END 2023-07-23 17:21 | disposition home or self-care (01) ==
PROVIDERS: Student in an Organized Health Care Education/Training Program; Emergency Provider Emergency Medicine
DX: F41.9 Anxiety disorder, unspecified (principal); F32.A Depression, unspecified; U07.1 COVID-19; Z91.148 Patient's other noncompliance with medication regimen for other reason; F17.210 Nicotine dependence, cigarettes, uncomplicated
CPT/HCPCS: 80048; 80076; 80307; 81001; 83690; 83735; 85025; 87635; 99284; 99285; S9485

== ENCOUNTER 2023-08-31 15:05 | Emergency (ER) | payer OTHER, SELFPAY ==
[2023-08-31 15:29] VITALS: BP 151/82; PULSE 94; RESP 16; TEMP 36.8; O2SAT 96; BMI 54.3
--- NOTE | 2023-08-31 15:44 | ED.PSYCH ---
HPI - Psych General Chief Complaint: Psychiatric Symptoms Stated Complaint: crisis Time Seen by Provider: 08/31/23 15:24 Source: patient, RN notes reviewed and old records reviewed Mode of arrival: ambulatory Limitations: no limitations History of Present Illness HPI Narrative: 38 year old male with pmhx significant for MDD and FRED presents to the ED today for evaluation of increased depression x1 mo. 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 On my initial evaluation, patient is denying suicidal ideation. He admits to cutting himself superficially on the left wrist a few days ago, however had no intention of ending his life. Admits to increased paranoia, anxiety and depression. Denies HI. Reports seeing his doctor yesterday who started him on trazodone and Zoloft. At present he states it was a mistake coming here. I have staff to handle at home. I should just wait for the meds to kick in . He denies illicit substance use including marijuana. Denies EtOH consumption. He has no physical complaints at present and is requesting to go home. Patient states that he was discharged from [facility] 3 weeks ago and has not felt like himself since being discharged. States that the medications that he was prescribed are not making him feel any better. Related Data Home Medications Medication Instructions Recorded Confirmed trazodone 50 mg tablet 100 mg PO BEDTIME 07/11/23 07/22/23 Previous Rx's Medication Instructions Recorded omeprazole 40 mg capsule,delayed 40 mg PO DAILY #30 caps 07/11/23 release fluoxetine 20 mg capsule 20 mg PO DAILY 30 days #30 caps 07/17/23 gabapentin 100 mg capsule 100 mg PO BID 30 days #60 caps 07/17/23 Allergies Allergy/AdvReac Type Severity Reaction Status Date / Time haloperidol [From Haldol] Allergy Muscle Verified 06/15/23 21:23 cramps shrimp Allergy Itching Verified 06/15/23 21:23 Review of Systems Review of Systems: Constitutional: No fever, chills, fatigue, night sweats, weight changes ENT/Mouth: No ear pain, hearing loss, nasal congestion, sinus pain, rhinorrhea, sore throat Eyes: No eye pain, swelling, redness, vision changes, discharge Cardio: No chest pain, palpitations, LOPEZ, orthopnea, peripheral edema Pulm: No SOB, cough, sputum, wheezing, dyspnea, hemoptysis GI: No nausea, vomiting, hematemesis, abdominal pain, diarrhea, constipation, hematochezia, melena : No irregular bleeding, dysuria, frequency, urgency, hesitancy, hematuria, flank pain, urinary flow changes, urinary incontinence or retention MSK: No back pain, neck pain, joint pain, myalgias Skin: No lesions, rashes Neuro: No weakness, numbness, paresthesias, LOC, dizziness, headache Psych: No HI, AH/VH, + depression, + anxiety, + paranoia, + suicidal ideation All other systems reviewed and are negative. [facility] Past Medical History Attestation statement: The following information was validated with the patient. Source: old records reviewed and nursing notes reviewed Medical History Suicidal ideation Psychiatric disorder Social History Social History Household Members: Family Household Members Other:: 1 Housing: Apartment Do you presently have visiting nurse or other home services: No Patient Tobacco Use Status: Current everyday Tobacco user Tobacco use type: Cigarette Cigarette Packs Per Day: 1 Cigarettes Per Day: 20.0 Second Hand Smoke Exposure: No Advance Directives: No Advance Directives Information Provided: Yes service: No Sexual orientation: Straight/Heterosexual Physical Exam Vital Signs: Vital Signs: Last Vital Signs Temp 98.2 F 08/31/23 15:29 Pulse 94 08/31/23 15:29 Resp 16 08/31/23 15:29 BP 151/82 H 08/31/23 15:29 Pulse Ox 96 08/31/23 15:29 O2 Del Method Room Air 08/31/23 15:29 BMI result Body Mass Index 54.3 Patient hypertensive, vitals otherwise WNL Const: General: cooperative, comfortable and no acute distress Nutritional Appearance: obese Orientation/consciousness: patient oriented x3 Limitations: no limitations HEENT: Head: Yes normal to inspection, Yes normocephalic and Yes atraumatic Ears: hearing grossly normal bilaterally Teeth and gingiva: caries and poor dentition Eyes: General: appearance normal, both eyes and all related structures Pupils: Equal, round and reactive pupils present Neck: Neck: Yes normal visual inspection and Yes full ROM Chest: Chest palpation & inspection: normal inspection of the chest Resp: Effort & Inspection: normal respiratory effort Auscultation: clear to auscultation bilaterally Cardio: Rate: regular rate Rhythm: regular rhythm GI: Inspection: Yes normal to inspection and Yes obesity Palpation (GI): Soft to palpation Skin: Other: + superficial self-harm cuts noted to dorsal aspect of left forearm/ wrist General skin exam: no rashes or lesions noted Neuro: General: patient oriented x3 Cranial nerves: Yes CN's II-XII intact bilaterally and Yes Equal, round and reactive pupils present Gait exam (Neuro): Normal gait present Motor exam (neuro): 5/5 motor strength present throughout Psych: Other: + speech pressured, stuttering Course Course Course Narrative: 1623-- I was called to bedside as patient is requesting to leave. Patient is declining suicidal ideation at this time. States he has no plan to hurt himself and would like to go home. He is adamant on this. I advised him to stay for evaluation with care team. I told him that he voluntarily brought himself for reason and that he should stay to be evaluated. He is declining at this time. We did obtain lab work and urine already however he is declining to stay for results. I advised patient that if he chooses to leave right now he will be leaving against medical advice. I discussed all the risks associated with this and patient verbalizes understanding. > I discussed this with my attending physician Dr. Cotter. As patient is declining SI, has no plan to harm himself, and voluntarily brought himself to the ED, patient may sign out AMA. I have no concern that the patient will leave this ED and hurt himself. Patient to sign out AMA. 1647-- CBC without leukocytosis or left shift. H & H stable. Chronically anemic when compared to priors. Chemistry without acute electrolyte abnormality requiring intervention. Normal renal function. Normal liver function. Urine negative for infection. Urine drug screen negative. Ethanol undetectable. COVID negative. Medical Decision Making Medical Decision Making [facility] Narrative: 38 year old male with pmhx significant for MDD and FRED presents to the ED today for evaluation of increased depression x1 mo. Patient hypertensive, vitals otherwise WNL. He is nontoxic-appearing and in no acute distress. Pressured speech. Stuttering. RRR. Lungs CTA bilaterally. On exam of extremities, there are superficial self-harm cuts to dorsal aspect of left forearm/wrist. No active bleeding. No signs of infection. Differential diagnosis includes depression, anxiety, suicidal ideation, polysubstance use, hypertension Plan for labs, UA, UDS, and care team evaluation. Differential Diagnosis Differential Diagnoses: The differential diagnosis associated with the presentation includes As above. Admission/Observation Not indicated Lab Data MDM Lab Attestation statement: I reviewed the patient's lab results. As above 08/31/23 15:40 08/31/23 15:40 Labs: Lab Results 08/31/23 Range/Units 15:40 WBC 10.2 (4.8-10.8) X10*3/uL RBC 4.94 (4.60-5.80) X10*6/uL Hgb 13.4 L (14.0-18.0) g/dl Hct 41.2 L (42.0-52.0) % MCV 83.4 (80.0-98.0) fL MCH 27.1 (27.0-33.0) pg MCHC 32.5 (31.0-36.0) g/dl RDW 13.9 (11.0-16.0) % Plt Count 270 (160-400) X10*3/uL MPV 10.1 (9.4-12.4) fL Immature Gran % (Auto) 0.3 (0.0-0.4) % Neut % (Auto) 74.0 H (45-73) % Lymph % (Auto) 18.4 L (20-40) % [place] % (Auto) 6.6 (2-11) % Eos % (Auto) 0.4 (0-4) % Baso % (Auto) 0.3 (0-2) % Lymph # (Auto) 1.9 (1.2-4.9) X10*3/uL [place] # (Auto) 0.7 (0.1-1.2) X10*3/uL Eos # (Auto) 0.0 (0.0-0.4) X10*3/uL Baso # (Auto) 0.0 (0.0-0.2) X10*3/uL Abs Immat Gran (auto) 0.03 (0.00-0.03) X10*3/uL Absolute Neuts (auto) 7.5 (2.0-8.3) x10*3/uL Absolute Nucleated RBC 0.000 (0.0-0.012) X10*3/uL Nucleated RBC % (auto) 0.0 (0.0-0.2) /100WBC Sodium 139 (135-145) mmol/L Potassium 4.3 (3.3-5.1) mmol/L Chloride 105 (96-108) mmol/L Carbon Dioxide 23 (22-29) mmol/L Anion Gap 15 (12-20) BUN 13 (9-16) mg/dL Creatinine 0.98 (0.5-1.4) mg/dL Estim Creat Clear Calc 159.3 Estimated GFR > 60 Random Glucose 112 (60-115) mg/dL Calcium 9.3 (8.4-10.2) mg/dL Total Bilirubin 0.3 (0.0-1.0) mg/dL AST 19 (5-37) U/L ALT 24 (0-40) U/L Alkaline Phosphatase 81 (39-117) U/L Total Protein 7.3 (6.5-8.0) g/dL Albumin 4.2 (3.5-5.0) g/dL Urine Color Yellow Urine Appearance Clear Urine pH 7.5 (5.0-9.0) Ur Specific [place] 1.020 (1.005-1.025) Urine Protein Negative (Neg-Trace) mg/dL Urine Glucose (UA) Negative (Negative) mg/dL Urine Ketones Negative (Negative) mg/dL Urine Blood Negative (Negative) Urine Nitrite Negative (Negative) Ur Leukocyte Esterase Negative (Negative) Urine Opiates Screen Not Detected (Not Detect) Urine Fentanyl Screen Not Detected (Not Detect) Ur Barbiturates Screen Not Detected (Not Detect) Ur Phencyclidine Scrn Not Detected (Not Detect) Ur Amphetamines Screen Not Detected (Not Detect) U Benzodiazepines Scrn Not Detected (Not Detect) Urine Cocaine Screen Not Detected (Not Detect) U Marijuana (THC) Screen Not Detected (Not Detect) Ethyl Alcohol < 10 mg/dL COVID-19 (MEGAN) Negative (Negative) COVID-19 Clin Com See Note External Record Review External record reviewed: Inpatient record, Office record, Outpatient record, Prior outpatient labs, Prior outpatient radiology, Primary care record and Outside ED record Chronic Conditions Patient?s care impacted by: Other (MDD, anxiety) Social Determinants Patient?s care significantly limited by Social Determinants of Health including: Other Social Determinant of Health Discharge Plan Discharge Clinical Impression: Suicidal ideation, MDD (major depressive disorder), recurrent episode, Anxiety, Paranoia Patient Disposition: Left Against Medical Advice Instructions: Depression (ED), Help Prevent Suicide in Older Adults (ED), Suicide Prevention (ED) Additional Instructions: You are declining to stay for workup results and care team evaluation. Please return with new or worsening symptoms. In the case of an emergency call 911. Prescriptions: No Action omeprazole 40 mg capsule,delayed release(DR/EC) 40 mg PO DAILY Qty: 30 0RF trazodone 50 mg tablet 100 mg PO BEDTIME fluoxetine 20 mg Capsule 20 mg PO DAILY 30 Days Qty: 30 0RF gabapentin 100 mg Capsule 100 mg PO BID 30 Days Qty: 60 0RF Stand Alone Forms: Against Medical Advice Interventions: [place]-Suicide Risk Severity Scale Last Done: 08/31/23 16:43
[2023-08-31 15:46] LABS: MANUAL DIFF FLAG NO
[2023-08-31 15:48] LABS: Basophils Percent Auto 0.3 % (0-2); Eosinophils Percent Auto 0.4 % (0-4); Hematocrit 41.2 % (42.0-52.0); Hemoglobin 13.4 g/dl (14.0-18.0); Imm Gran Abs Auto 0.03 X10*3/uL (0.00-0.03); Imm Gran Pct Auto 0.3 % (0.0-0.4); Lymphocytes Absolute Auto 1.9 X10*3/uL (1.2-4.9); Lymphocytes Percent Auto 18.4 % (20-40); Mean Corpuscular HGB Conc 32.5 g/dl (31.0-36.0); Mean Corpuscular Hemoglobin 27.1 pg (27.0-33.0); Mean Corpuscular Volume 83.4 fL (80.0-98.0); Mean Platelet Volume 10.1 fL (9.4-12.4); Monocytes Absolute Auto 0.7 X10*3/uL (0.1-1.2); Monocytes Percent Auto 6.6 % (2-11); Neutrophils Absolute Auto 7.5 x10*3/uL (2.0-8.3); Platelet Count 270 X10*3/uL (160-400); Red Blood Count 4.94 X10*6/uL (4.60-5.80); Red Cell Distribution Width 13.9 % (11.0-16.0); White Blood Count 10.2 X10*3/uL (4.8-10.8)
[2023-08-31 15:49] LABS: Appearance Urine Clear; Color Urine Yellow; Glucose Urine UA Negative (Negative); Leukocyte Esterase Urine Negative (Negative); Nitrite Urine Negative (Negative); PH 7.5 (5.0-9.0); Urine Blood Negative (Negative); Urine Ketones Negative (Negative); Urine Protein Negative (Neg-Trace)
[2023-08-31 16:02] LABS: Alanine Aminotransferase 24 U/L (0-40); Albumin Level 4.2 g/dL (3.5-5.0); Alkaline Phosphatase 81 U/L (39-117); Anion Gap 15 (12-20); Aspartate Amino Transferase 19 U/L (5-37); Bilirubin Total 0.3 mg/dL (0.0-1.0); Blood Urea Nitrogen 13 mg/dL (9-16); Calcium 9.3 mg/dL (8.4-10.2); Carbon Dioxide 23 mmol/L (22-29); Chloride 105 mmol/L (96-108); Creatinine Clr Calc Pharmacy 159.3; Estimated Glomerular Filt Rate > 60; Ethanol < 10 mg/dL; Glucose Random 112 mg/dL (60-115); Potassium 4.3 mmol/L (3.3-5.1); Sodium 139 mmol/L (135-145); Total Protein 7.3 g/dL (6.5-8.0)
[2023-08-31 16:04] LABS: COVID-19 Test Negative (Negative); IDNOW Serial# 152EDE1D
[2023-08-31 16:07] LABS: Amphetamine Screen Urine Not Detected (Not Detect); Barbiturates, Urine Not Detected (Not Detect); Cannabinoid Screen Urine Not Detected (Not Detect); Cocaine Screen Urine Not Detected (Not Detect); Fentanyl, urine Not Detected (Not Detect); Opiate Screen Urine Not Detected (Not Detect); Phencyclidine Screen Urine Not Detected (Not Detect)
[2023-08-31 16:19] LABS: Benzodiazepines Screen Urine Not Detected (Not Detect)
[2023-08-31 16:49] VITALS: BP 0/0; PULSE 0; RESP 16; TEMP -17.7; TEMP 0
== END 2023-08-31 20:13 | disposition left against medical advice (07) ==
PROVIDERS: Emergency Provider Emergency Medicine
DX: F33.1 Major depressive disorder, recurrent, moderate (principal); F41.9 Anxiety disorder, unspecified; F22 Delusional disorders; Z11.52 Encounter for screening for COVID-19; Z79.899 Other long term (current) drug therapy
CPT/HCPCS: 80053; 80307; 81003; 85025; 87635; 99284

== ENCOUNTER 2023-12-10 14:36 | Emergency (ER) | payer OTHER, SELFPAY ==
--- NOTE | ~2023-12-10 | XR_ITS ---
EXAMINATION: XR CHEST CLINICAL INFORMATION: Shortness of breath COMPARISON: None available. TECHNIQUE: 3 views of the chest were obtained. FINDINGS: The cardiomediastinal silhouette is within normal limits. The lungs are well expanded. There is no focal consolidation, edema, or effusion. No pneumothorax. No acute osseous abnormality. XR/XR chest 2V IMPRESSION: No acute pulmonary process seen.
[2023-12-10 14:42] VITALS: BP 156/98; PULSE 91; O2SAT 98
--- NOTE | 2023-12-10 14:48 | ED_ITS ---
HPI - General Adult General Chief complaint: General Medical Stated complaint: ANXIETY WTH DIFF BREATHING PER EMS Time Seen by Provider: 12/10/23 14:47 Source: patient and EMS Mode of arrival: EMS Limitations: no limitations History of Present Illness ED Provider: Cynthia Sadler PA-C HPI narrative: Patient is a 38 year old assigned male at with a history of MDD and anxiety presenting to the emergency department today with increased anxiety and shortness of breath. Patient states that he has been feeling much more anxious over the last few days with intermittent shortness of breath and trouble sleeping. Patient states that he is taking his medication as prescribed and does not have any thoughts of hurting himself or others. Patient denies any dizziness, lightheadedness, abdominal pain, nausea, vomiting, fever, chills, blurry vision, double vision, loss of vision, chest pain, back pain, night sweats, pain with urination, increased urinary frequency, increased urinary urgency, blood in his urine or stool, syncope or a near syncopal episode, recent trauma or falls, bowel incontinence, bladder incontinence, or any other complaints at this time. Onset (ago): day(s) Relieving factors: none Exacerbating factors: none Associated symptoms: shortness of breath Treatments prior to arrival: none Related Data Home Medications ?Medication ?Instructions ?Recorded ?Confirmed trazodone 50 mg tablet 100 mg PO BEDTIME 07/11/23 07/22/23 Previous Rx's ?Medication ?Instructions ?Recorded omeprazole 40 mg capsule,delayed 40 mg PO DAILY #30 caps 07/11/23 release fluoxetine 20 mg capsule 20 mg PO DAILY 30 days #30 caps 07/17/23 gabapentin 100 mg capsule 100 mg PO BID 30 days #60 caps 07/17/23 Allergies Allergy/AdvReac Type Severity Reaction Status Date / Time haloperidol [From Haldol] Allergy Muscle Verified 12/10/23 15:08 cramps shrimp Allergy Itching Verified 12/10/23 15:08 Review of Systems 2 Constitutional: Constitutional: Reports no additional constitutional complaints, Denies chills, Denies fever(s) and Denies night sweats Eyes: Eyes: Reports no additional eye complaints, Denies blurry vision, Denies change in vision, Denies diplopia, Denies eye discharge, Denies loss of vision and Denies eye pain ENT: Denies dizziness Cardiovascular: Cardiovascular: Reports no additional cardiovascular complaints, Denies chest pain, Denies lightheadedness, Denies Loss of Consciousness and Reports dyspnea Respiratory: Respiratory: Reports no additional respiratory complaints and Reports dyspnea Gastrointestinal: Gastrointestinal: Reports no additional gastrointestinal complaints, Denies abdominal pain, Denies melena, Denies hematochezia, Denies change in bowel habits and Denies change in stool character Genitourinary: Genitourinary: Reports no additional male genitourinary complaints, Denies hematuria, Denies oliguria, Denies difficulty urinating, Denies dysuria, Denies urinary frequency, Denies urinary hesitancy, Denies urinary incontinence and Denies urinary urgency Musculoskeletal: Musculoskeletal: Reports no additional musculoskeletal complaints, Denies numbness and Denies tingling Neurologic: Denies dizziness, Denies loss of vision, Denies numbness and Denies tingling Psychiatric: Psychiatric: Reports anxiety Endocrine: Endocrine: Reports no additional endocrine complaints Hematologic/Lymphatic: Hematologic/Lymphatic: Reports no additional hematologic/lymphatic complaints Allergic/Immunologic: Allergic/Immunologic: Reports no additional allergic/immunologic complaints [facility] Past Medical History Attestation statement: The following information was validated with the patient. Source: old records reviewed and nursing notes reviewed Medical History Suicidal ideation Psychiatric disorder Social History Social History Household Members: Family Household Members Other:: 1 Housing: Apartment Do you presently have visiting nurse or other home services: No Unable to assess alcohol history related to: Unknown Patient Tobacco Use Status: Current everyday Tobacco user Tobacco use type: Cigarette Cigarette Packs Per Day: 1 Cigarettes Per Day: 20.0 Smoked in Last 30 Days: No Second Hand Smoke Exposure: No Use of substances other than those prescribed or required for medical reasons: No Advance Directives: No Advance Directives Information Provided: No service: No Sexual orientation: Straight/Heterosexual Physical Exam ED Vital Signs: Vital Signs - 24 hr 12/10/23 15:03 12/10/23 18:00 12/10/23 18:43 Temperature 98.1 F 98.0 F 98 F Pulse Rate 77 89 89 Respiratory Rate 18 12 12 Blood Pressure 147/74 H 149/84 H 149/84 H Pulse Oximetry 96 98 98 Oxygen Delivery Method Room Air Room Air Room Air BMI result Body Mass Index 56.1 Const General: cooperative, no acute distress, alert and awake Nutritional Appearance: well nourished Orientation/consciousness: patient oriented x3 Limitations: no limitations HENMT Head: Yes normal to inspection and Yes atraumatic Ears: hearing grossly normal bilaterally and external ears normal General nose exam: Normal external nose present, no nasal discharge noted and no epistaxis Face and sinus: Yes normal facial exam, No abrasion and No laceration Mouth: Normal oral and palatal mucosa present, no drooling and no muffled voice Eyes General: appearance normal, both eyes and all related structures Periorbital: periorbital findings normal Eyelids: Yes eyelids normal Conjunctivae: conjunctivae normal Pupils: Equal, round and reactive pupils present EOM: EOMs intact bilaterally Neck Neck: Yes normal visual inspection, Yes full ROM and Yes no lymphadenopathy Chest Chest palpation & inspection: normal inspection of the chest Resp Effort & Inspection: normal respiratory effort and able to speak in complete sentences GI Inspection: Yes normal to inspection Neuro General: patient oriented x3 and moves all extremities Cranial nerves: Yes Equal, round and reactive pupils present Cognition (Neuro): normal cognition Motor exam (neuro): 5/5 motor strength present throughout Sensory Exam: Normal double simultaneous stimulation for sensation Coordination: [id number] test normal Extrem General: Yes normal to inspection, Yes full ROM and Yes capillary refill normal Psych Appearance: grossly normal Mental Status: mental status grossly normal Affect: normal affect Attitude: cooperative Thought process: Normal thought process present Thought content: Normal thought content present Insight: Good insight present (Psych) Medications Administered Discontinued Medications Generic Name Dose Route Start Last Admin Trade Name aRdha PRN Reason Stop Dose Admin Lorazepam 1 mg 12/10/23 15:15 12/10/23 15:44 Lorazepam 1 Mg Tablet PO 12/10/23 15:16 1 mg ONCE ONE Administration Medical Decision Making Medical Decision Making MDM Narrative: Patient is a 38 year old assigned male at with a history of MDD and anxiety presenting to the emergency department today with increased anxiety and shortness of breath. Patient's physical exam was unremarkable. Patient's blood work was unremarkable. Patient's EKG was unremarkable. Patient's chest x-ray showed no acute process. I explained my physical exam findings as well as all test results to the patient. I answered all questions asked by the patient. Patient received PO Ativan which he stated helped his symptoms significantly. I stressed the importance of the patient taking his medication as prescribed. I stressed the importance of the patient following up with his primary care provider and with [facility] as scheduled on 12/11/2023. I stressed the importance of the patient returning to the emergency department immediately if his symptoms were to worsen or if he were to develop any dizziness, shortness of breath, difficulty breathing, chest pain, blurry vision, loss of vision, nausea, vomiting, abdominal pain, fever, chills, back pain, or any other complaints. Patient verbalized agreement and understanding with this treatment plan and discharge. Differential Diagnosis Differential Diagnoses: The differential diagnosis associated with the presentation includes Anxiety Shortness of breath Panic attack Admission/Observation Consideration of admission/observation: Escalation of care including admission/observation considered Patient would have been admitted to the hospital had his work up had any findings where hospital admission was appropriate and his clinical presentation warranted hospital admission. Lab Data [facility] Lab Attestation statement: I reviewed the patient's lab results. My interpretation of these results are in the [facility] Rationale portion of this note. 12/10/23 15:28 12/10/23 15:29 Labs: Lab Results 12/10/23 12/10/23 Range/Units 15:28 15:29 WBC 9.1 (4.8-10.8) X10*3/uL RBC 4.69 (4.60-5.80) X10*6/uL Hgb 13.0 L (14.0-18.0) g/dl Hct 39.7 L (42.0-52.0) % MCV 84.6 (80.0-98.0) fL MCH 27.7 (27.0-33.0) pg MCHC 32.7 (31.0-36.0) g/dl RDW 14.5 (11.0-16.0) % Plt Count 209 (160-400) X10*3/uL MPV 9.9 (9.4-12.4) fL Immature Gran % (Auto) 0.3 (0.0-0.4) % Neut % (Auto) 73.4 H (45-73) % Lymph % (Auto) 18.7 L (20-40) % [place] % (Auto) 6.6 (2-11) % Eos % (Auto) 0.8 (0-4) % Baso % (Auto) 0.2 (0-2) % Lymph # (Auto) 1.7 (1.2-4.9) X10*3/uL [place] # (Auto) 0.6 (0.1-1.2) X10*3/uL Eos # (Auto) 0.1 (0.0-0.4) X10*3/uL Baso # (Auto) 0.0 (0.0-0.2) X10*3/uL Abs Immat Gran (auto) 0.03 (0.00-0.03) X10*3/uL Absolute Neuts (auto) 6.7 (2.0-8.3) x10*3/uL Absolute Nucleated RBC 0.000 (0.0-0.012) X10*3/uL Nucleated RBC % (auto) 0.0 (0.0-0.2) /100WBC Sodium 139 (135-145) mmol/L Potassium 4.0 (3.3-5.1) mmol/L Chloride 104 (96-108) mmol/L Carbon Dioxide 27 (22-29) mmol/L Anion Gap 12 (12-20) BUN 13 (9-16) mg/dL Creatinine 0.91 (0.5-1.4) mg/dL Estim Creat Clear Calc 175.0 Estimated GFR > 60 Random Glucose 118 H (60-115) mg/dL Calcium 9.2 (8.4-10.2) mg/dL Magnesium 2.1 (1.6-2.6) mg/dL Total Bilirubin 0.2 (0.0-1.0) mg/dL AST 18 (5-37) U/L ALT 20 (0-40) U/L Alkaline Phosphatase 70 (39-117) U/L Troponin I High Sens < 2.7 (<3.5-35.0) ng/L Total Protein 6.8 (6.5-8.0) g/dL Albumin 4.0 (3.5-5.0) g/dL Independent Interpretation I performed an independent interpretation of an: EKG and Plain X-Ray Interpretation: My interpretation is in agreement with the radiologist's impression of this imaging study. - EXAMINATION: XR CHEST CLINICAL INFORMATION: Shortness of breath COMPARISON: None available. TECHNIQUE: 3 views of the chest were obtained. FINDINGS: The cardiomediastinal silhouette is within normal limits. The lungs are well expanded. There is no focal consolidation, edema, or effusion. No pneumothorax. No acute osseous abnormality. XR/XR chest 2V IMPRESSION: No acute pulmonary process seen. Dictated By: Olu Martin MD Signed By: Electronically signed by Olu Martin MD 12/10/23 1636 - Vent. Rate: 086 BPM Atrial Rate: 086 BPM P-R Int: 166 ms QRS Dur: 092 ms QT Int: 360 ms P-R-T Axes: 047 037 034 degrees QTc Int: 430 ms Sinus rhythm with occasional Premature ventricular complexes and Premature atrial complexes Otherwise normal ECG When compared with ECG of 15-JUN-2023 22:10, Premature ventricular complexes are now Present Premature atrial complexes are now Present DD/ 1512 Radiology Impression Discussion of test interpretation with radiology: I have reviewed the radiologist's reading. Independent Historian Clinical information obtained from an independent historian. History obtained from or confirmed by: EMS (EMS provided additional history and confirmed the history provided by the patient.) Discharge Plan Discharge Clinical Impression: Anxiety Patient Disposition: Home, Self-Care Instructions: Anxiety (ED) Additional Instructions: Follow up with your primary care provider and [facility] tomorrow as scheduled. Return to the emergency department immediately if your symptoms worsen or if you develop any dizziness, shortness of breath, difficulty breathing, chest pain, blurry vision, loss of vision, nausea, vomiting, abdominal pain, fever, chills, back pain, or any other complaints. Prescriptions: No Action omeprazole 40 mg capsule,delayed release(DR/EC) 40 mg PO DAILY Qty: 30 0RF trazodone 50 mg tablet 100 mg PO BEDTIME fluoxetine 20 mg Capsule 20 mg PO DAILY 30 Days Qty: 30 0RF gabapentin 100 mg Capsule 100 mg PO BID 30 Days Qty: 60 0RF Referrals: [facility] Family [facility] [Provider Group] (Call to establish and follow up with a primary care provider. If you already have a primary care provider, please follow up with them.) [facility] [Provider Group] [facility] [Provider Group] Stand Alone Forms: Work/School Release Interventions: ED Discharge Assessment Last Done: 12/10/23 18:43 Discharge Date/Time: 12/10/23 18:44 Print Language: Salvadorean
--- NOTE | 2023-12-10 14:49 | ECG_ITS ---
Test Reason : ANXETY Blood Pressure : / mmHG Vent. Rate : 086 BPM Atrial Rate : 086 BPM P-R Int : 166 ms QRS Dur : 092 ms QT Int : 360 ms P-R-T Axes : 047 037 034 degrees QTc Int : 430 ms Sinus rhythm with occasional Premature ventricular complexes and Premature atrial complexes Otherwise normal ECG When compared with ECG of 15-JUN-2023 22:10, Premature ventricular complexes are now Present Premature atrial complexes are now Present Referred By: Cynthia Sadler Electronically Signed By:VERO LATHAM MD
[2023-12-10 15:03] VITALS: BP 147/74; PULSE 77; RESP 18; TEMP 36.7; O2SAT 96; BMI 56.1
[2023-12-10 15:34] LABS: MANUAL DIFF FLAG NO
[2023-12-10 15:39] LABS: Basophils Percent Auto 0.2 % (0-2); Eosinophils Absolute Auto 0.1 X10*3/uL (0.0-0.4); Eosinophils Percent Auto 0.8 % (0-4); Hematocrit 39.7 % (42.0-52.0); Imm Gran Abs Auto 0.03 X10*3/uL (0.00-0.03); Imm Gran Pct Auto 0.3 % (0.0-0.4); Lymphocytes Absolute Auto 1.7 X10*3/uL (1.2-4.9); Lymphocytes Percent Auto 18.7 % (20-40); Mean Corpuscular HGB Conc 32.7 g/dl (31.0-36.0); Mean Corpuscular Hemoglobin 27.7 pg (27.0-33.0); Mean Corpuscular Volume 84.6 fL (80.0-98.0); Mean Platelet Volume 9.9 fL (9.4-12.4); Monocytes Absolute Auto 0.6 X10*3/uL (0.1-1.2); Monocytes Percent Auto 6.6 % (2-11); Neutrophils Absolute Auto 6.7 x10*3/uL (2.0-8.3); Neutrophils Percent Auto 73.4 % (45-73); Platelet Count 209 X10*3/uL (160-400); Red Blood Count 4.69 X10*6/uL (4.60-5.80); Red Cell Distribution Width 14.5 % (11.0-16.0); White Blood Count 9.1 X10*3/uL (4.8-10.8)
[2023-12-10] MEDS: LORazepam 1 MG TABLET PO (15:44)
[2023-12-10 15:59] LABS: Alanine Aminotransferase 20 U/L (0-40); Alkaline Phosphatase 70 U/L (39-117); Anion Gap 12 (12-20); Aspartate Amino Transferase 18 U/L (5-37); Bilirubin Total 0.2 mg/dL (0.0-1.0); Blood Urea Nitrogen 13 mg/dL (9-16); Calcium 9.2 mg/dL (8.4-10.2); Carbon Dioxide 27 mmol/L (22-29); Chloride 104 mmol/L (96-108); Estimated Glomerular Filt Rate > 60; Glucose Random 118 mg/dL (60-115); Magnesium 2.1 mg/dL (1.6-2.6); Sodium 139 mmol/L (135-145); Total Protein 6.8 g/dL (6.5-8.0)
[2023-12-10 16:07] LABS: Troponin-I High Sensitivity < 2.7 ng/L (<3.5-35.0)
[2023-12-10 18:00] VITALS: BP 149/84; PULSE 89; RESP 12; TEMP 36.7; O2SAT 98
[2023-12-10 18:43] VITALS: BP 149/84; PULSE 89; RESP 12; TEMP 36.6; O2SAT 98
== END 2023-12-10 18:44 | disposition home or self-care (01) ==
PROVIDERS: Physician Assistant Medical; Emergency Provider Emergency Medicine
DX: R06.02 Shortness of breath (principal); F41.9 Anxiety disorder, unspecified; G47.00 Insomnia, unspecified
CPT/HCPCS: 36415; 71046; 80053; 83735; 84484; 85025; 93005; 99283; 99284

== ENCOUNTER → 2023-12-10 14:49 | Outpatient (BNV) | payer OTHER, SELFPAY | PROVIDERS: Emergency Provider Emergency Medicine; Visit Provider Internal Medicine Cardiovascular Disease | DX: I49.3 Ventricular premature depolarization (principal) | CPT/HCPCS: 93010 ==

== ENCOUNTER 2023-12-25 16:46 | Emergency (ER) | payer OTHER, SELFPAY ==
[2023-12-25 17:36] VITALS: BP 138/87; PULSE 87; O2SAT 98
[2023-12-25 17:37] VITALS: BP 154/83; PULSE 91; RESP 16; TEMP 36.8; O2SAT 96; BMI 55.4
--- NOTE | 2023-12-25 17:46 | ED_ITS ---
HPI - Anxiety General Chief Complaint: Anxiety Stated Complaint: ANXIETY ATTACK NO SI/HI PER EMS Time Seen by Provider: 12/25/23 17:03 Source: patient, EMS and old records reviewed Mode of arrival: EMS Limitations: no limitations History of Present Illness ED Provider: DR. Oakley HPI narrative: A 38-year-old male history of MDD, anxiety had a previous mental health hospitalization for major depression and SI patient called ambulance today seeking help for his increased anxiety patient takes trazodone and fluoxetine patient admitted to being compliant with the medication, sometimes have the feeling of being anxious, heart go fast, breathe fast. Patient lives with his parents, currently have no job receives [employer], declined using any street drugs only smokes cigarettes no alcohol abuse. Patient at this moment declined any SI or HI, no auditory or visual hallucination. Related Data Home Medications ?Medication ?Instructions ?Recorded ?Confirmed trazodone 50 mg tablet 100 mg PO BEDTIME 07/11/23 07/22/23 Previous Rx's ?Medication ?Instructions ?Recorded omeprazole 40 mg capsule,delayed 40 mg PO DAILY #30 caps 07/11/23 release fluoxetine 20 mg capsule 20 mg PO DAILY 30 days #30 caps 07/17/23 gabapentin 100 mg capsule 100 mg PO BID 30 days #60 caps 07/17/23 Allergies Allergy/AdvReac Type Severity Reaction Status Date / Time haloperidol [From Haldol] Allergy Muscle Verified 12/25/23 17:38 cramps shrimp Allergy Itching Verified 12/25/23 17:38 Review of Systems 2 Review of Systems: All other systems are reviewed and are negative Constitutional: Reports as per HPI and Reports no additional constitutional complaints Eyes: Reports as per HPI and Reports no additional eye complaints Reports system reviewed and no additional complaints, except as documented Cardiovascular: Reports as per HPI and Reports no additional cardiovascular complaints Respiratory: Reports as per HPI and Reports no additional respiratory complaints Gastrointestinal: Reports as per HPI and Reports no additional gastrointestinal complaints Genitourinary: Reports no additional female genitourinary complaints Musculoskeletal: Reports no additional musculoskeletal complaints Skin/Breast: Reports system reviewed and no additional complaints, except as docu Psychiatric: Reports no additional psychiatric complaints Endocrine: Reports no additional endocrine complaints Hematologic/Lymphatic: Reports no additional hematologic/lymphatic complaints Allergic/Immunologic: Reports no additional allergic/immunologic complaints Reports system reviewed and no additional complaints, except as documented and Reports Abnormal speech present. [facility] Past Medical History Medical History Suicidal ideation Psychiatric disorder Social History Social History Household Members: Family Household Members Other:: 1 Housing: Apartment Do you presently have visiting nurse or other home services: No Unable to assess alcohol history related to: Unknown Patient Tobacco Use Status: Current everyday Tobacco user Tobacco use type: Cigarette Cigarette Packs Per Day: 1 Cigarettes Per Day: 20.0 Second Hand Smoke Exposure: No Advance Directives: No Advance Directives Information Provided: No Do you have a plan to hurt others: No Plan service: No Sexual orientation: Straight/Heterosexual Physical Exam 2 Vital Signs: Vital Signs: Last Vital Signs Temp 98.3 F 12/25/23 17:37 Pulse 91 12/25/23 17:37 Resp 17 12/25/23 18:07 BP 154/83 H 12/25/23 17:37 Pulse Ox 96 12/25/23 17:37 O2 Del Method Room Air 12/25/23 17:37 BMI result Body Mass Index 55.4 Vital signs have been reviewed and appear to be correct. Blood pressure elevated. Heart rate normal. Respiratory rate normal. Temperature normal. Oxygen saturation normal. Appearance: Alert. Oriented X3. No acute distress. Head: Normal external exam. Normocephalic. Atraumatic. No Goodwin signs noted. No raccoon eyes noted Eyes: PERRLA. EOMI. Conjunctiva and sclera normal. Eyelids normal. ENT: TM's Normal. Pharynx normal. Uvula midline. Moist mucous membranes. No trismus noted. No drooling noted. No muffled voice noted. Neck: Normal inspection. Neck supple. FROM. No adenopathy. Thyroid Normal. No meningeal signs. No neck mass noted. CVS: Normal heart rate and rhythm. Heart sound normal. No murmurs noted. Pulses normal throughout. Respiratory: No respiratory distress. Painless inspiration. Breath sounds normal. No wheezes/rales/rhonchi noted. Chest nontender. No accessory muscle usage noted or decreased air movement noted. Abdomen: Soft and nontender. Bowel sounds normal in all 4 quadrants. No distention noted. No organomegaly noted. No visible injury noted. Back: No CVA tenderness. Full range of motion noted. Skin: Skin warm and dry. Normal skin color. Normal skin turgor. No rashes/lesions/lacerations noted. Extremities: No lower extremity edema. Extremities exhibit normal range of motion. Extremities nontender. Neuro: Oriented X 3. Cranial nerve exam: II-XII are grossly intact No motor deficit. No sensory deficit. Reflexes normal. Patient Orientation: Person, Place, Time and Situation, okay hygiene and grooming. Fair eye contact, attentive, no tics or tremors. Level of Consciousness: Awake, Appropriate and Alert Patient Behavior: Appropriate, Guarded, Cooperative and Anxious Mood Description: Constricted, Blunted and Apprehensive Affect Description: Constricted, Blunted and Apprehensive Patient Cognition Impaired: No Ability to Follow Directions: Excellent Speech Pattern: Clear, Appropriate and Spontaneous Speech, nonpressured, spontaneous with regular rate and rhythm, normal volume and prosody. No dysarthria. Memory Description: Intact, Immediate Intact and Short Term Intact Hallucinations: None Delusions: Not Present Thought Process: Intact Thought Content: positive for Intact, positive for Logical, denies Suicidal Ideation and denies Homicidal Ideation. Depressive Symptoms: Not present. Judgement and Insight: Limited but adequate. Course Reevaluation(s) Reevaluation #1: Will start the patient on physician observation awaiting for care team consultation for severe anxiety/ major depression disorder, no SI, no HI, no hallucination. Time: 17:59 Reevaluation #2: patient has no SI or HI or hallucination, capable to make his own decision, patient feels calmer and wanted to go home patient eloped before full evaluation. Time: 18:45 Medical Decision Making Differential Diagnosis Differential Diagnoses: The differential diagnosis associated with the presentation includes ( Depression, SI, HI, hallucination, acute psychosis, medical clearance, severe anemia, electrolyte derangement, substance abuse, UTI.) Admission/Observation Consideration of admission/observation: Escalation of care including admission/observation considered Lab Data MDM Lab Attestation statement: I reviewed the patient's lab results. 12/25/23 18:21 12/25/23 18:21 Labs: Lab Results 12/25/23 Range/Units 18:21 WBC 8.6 (4.8-10.8) X10*3/uL RBC 5.05 (4.60-5.80) X10*6/uL Hgb 14.1 (14.0-18.0) g/dl Hct 43.1 (42.0-52.0) % MCV 85.3 (80.0-98.0) fL MCH 27.9 (27.0-33.0) pg MCHC 32.7 (31.0-36.0) g/dl RDW 14.5 (11.0-16.0) % Plt Count 242 (160-400) X10*3/uL MPV 10.2 (9.4-12.4) fL Immature Gran % (Auto) 0.3 (0.0-0.4) % Neut % (Auto) 72.7 (45-73) % Lymph % (Auto) 18.8 L (20-40) % [place] % (Auto) 7.1 (2-11) % Eos % (Auto) 0.8 (0-4) % Baso % (Auto) 0.3 (0-2) % Lymph # (Auto) 1.6 (1.2-4.9) X10*3/uL [place] # (Auto) 0.6 (0.1-1.2) X10*3/uL Eos # (Auto) 0.1 (0.0-0.4) X10*3/uL Baso # (Auto) 0.0 (0.0-0.2) X10*3/uL Abs Immat Gran (auto) 0.03 (0.00-0.03) X10*3/uL Absolute Neuts (auto) 6.3 (2.0-8.3) x10*3/uL Absolute Nucleated RBC 0.000 (0.0-0.012) X10*3/uL Nucleated RBC % (auto) 0.0 (0.0-0.2) /100WBC Discharge Plan Discharge Clinical Impression: Acute anxiety Patient Disposition: Elopement Prescriptions: No Action omeprazole 40 mg capsule,delayed release(DR/EC) 40 mg PO DAILY Qty: 30 0RF trazodone 50 mg tablet 100 mg PO BEDTIME fluoxetine 20 mg Capsule 20 mg PO DAILY 30 Days Qty: 30 0RF gabapentin 100 mg Capsule 100 mg PO BID 30 Days Qty: 60 0RF Stand Alone Forms: Against Medical Advice Discharge Date/Time: 12/25/23 18:40 Print Language: Somali
[2023-12-25 18:07] VITALS: RESP 17
[2023-12-25 18:24] LABS: MANUAL DIFF FLAG NO
[2023-12-25 18:32] LABS: Basophils Percent Auto 0.3 % (0-2); Eosinophils Absolute Auto 0.1 X10*3/uL (0.0-0.4); Eosinophils Percent Auto 0.8 % (0-4); Hematocrit 43.1 % (42.0-52.0); Hemoglobin 14.1 g/dl (14.0-18.0); Imm Gran Abs Auto 0.03 X10*3/uL (0.00-0.03); Imm Gran Pct Auto 0.3 % (0.0-0.4); Lymphocytes Absolute Auto 1.6 X10*3/uL (1.2-4.9); Lymphocytes Percent Auto 18.8 % (20-40); Mean Corpuscular HGB Conc 32.7 g/dl (31.0-36.0); Mean Corpuscular Hemoglobin 27.9 pg (27.0-33.0); Mean Corpuscular Volume 85.3 fL (80.0-98.0); Mean Platelet Volume 10.2 fL (9.4-12.4); Monocytes Absolute Auto 0.6 X10*3/uL (0.1-1.2); Monocytes Percent Auto 7.1 % (2-11); Neutrophils Absolute Auto 6.3 x10*3/uL (2.0-8.3); Neutrophils Percent Auto 72.7 % (45-73); Platelet Count 242 X10*3/uL (160-400); Red Blood Count 5.05 X10*6/uL (4.60-5.80); Red Cell Distribution Width 14.5 % (11.0-16.0); White Blood Count 8.6 X10*3/uL (4.8-10.8)
--- NOTE | 2023-12-25 18:38 | PC.NURSE ---
Patient got up and demanded to leave for a second time, Dr. Oakley informed patient he was free to go, patient walked out of ED observed by staff. Did not wait to sign AMA form. chain saw driver made aware. design project manager and front office spec informed if patient comes back he has to check back in again.
[2023-12-25 18:48] LABS: Anion Gap 14 (12-20); Blood Urea Nitrogen 15 mg/dL (9-16); Calcium 9.5 mg/dL (8.4-10.2); Carbon Dioxide 25 mmol/L (22-29); Chloride 105 mmol/L (96-108); Creatinine Clr Calc Pharmacy 151.9; Estimated Glomerular Filt Rate > 60; Glucose Random 110 mg/dL (60-115); Sodium 140 mmol/L (135-145)
== END 2023-12-25 18:40 | disposition left against medical advice (07) ==
PROVIDERS: Emergency Provider Emergency Medicine
DX: F41.1 Generalized anxiety disorder (principal); F33.1 Major depressive disorder, recurrent, moderate; R45.851 Suicidal ideations; F17.210 Nicotine dependence, cigarettes, uncomplicated; Z79.899 Other long term (current) drug therapy
CPT/HCPCS: 36415; 80048; 85025; 99283

== ENCOUNTER 2023-12-26 18:14 | Emergency (ER) | payer OTHER, SELFPAY ==
--- NOTE | ~2023-12-26 | CT_ITS ---
EXAMINATION: CT HEAD WITHOUT CONTRAST CLINICAL INFORMATION: Syncope, head strike, head COMPARISON: None available. TECHNIQUE: Contiguous axial imaging was performed from the skull base to vertex without intravenous administration of contrast. This CT examination was performed using dose optimization techniques as appropriate, variously including the following: *Automated exposure control *Adjustment of mA and/or kV according to patient size (this includes techniques or standardized protocols for targeted exams where dose is matched to indication/reason for exam; i.e. extremities or head) *Use of iterative reconstruction technique DLP: 778 mGy-cm FINDINGS: The ventricles and sulci are normal in size and configuration. No acute hemorrhage, mass effect or shift is evident. Soto-white differentiation is maintained. In the posterior fossa, the brainstem, cerebellum and fourth ventricle image normally. The orbits and calvarium are intact. The paranasal sinuses and mastoid air cells are well pneumatized and clear. CT/CT head/brain wo IV con IMPRESSION: 1. Unremarkable noncontrast brain CT. No acute hemorrhage, mass effect or shift.
[2023-12-26 18:31] VITALS: BP 174/103; PULSE 75; RESP 18; TEMP 36.7; O2SAT 98; BMI 54.4
--- NOTE | 2023-12-26 18:32 | ECG_ITS ---
Test Reason : SYNCOPE Blood Pressure : / mmHG Vent. Rate : 074 BPM Atrial Rate : 074 BPM P-R Int : 166 ms QRS Dur : 094 ms QT Int : 376 ms P-R-T Axes : 043 035 053 degrees QTc Int : 417 ms Normal sinus rhythm Normal ECG When compared with ECG of 10-DEC-2023 15:12, Premature ventricular complexes are no longer Present Premature atrial complexes are no longer Present Referred By: Maisha Morse Electronically Signed By:Trell Barger
--- NOTE | 2023-12-26 18:47 | ED.SYNCOPE ---
HPI - Syncope General Chief Complaint: Syncope Stated Complaint: passed out, fell w/ headstrike,nauseous Time Seen by Provider: 12/26/23 18:23 Source: patient and EMS Mode of arrival: EMS Limitations: no limitations History of Present Illness HPI narrative: Patient is a 38-year-old male who presents to the emergency department for evaluation after a syncopal episode. He reports that he was seen in the emergency department yesterday for severe anxiety. He states he ultimately wanted to go home as he was feeling better. 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 He ended up sleeping all day today, has not had anything to eat since last night. After waking up this evening he went to walk outside to get some fresh air, states upon walking outdoors he began feeling dizzy described as lightheadedness, reporting that he then passed out landing onto the ground with head strike. This was witnessed reportedly by his neighbor, duration of LOC is unknown. He was able to get up on his own after regaining consciousness. EMS was called afterwards. He denies any additional preceding symptoms aside from the dizziness such as vision changes, chest pain, shortness of breath, nausea, vomiting, numbness or tingling of the extremities. Related Data Home Medications ?Medication ?Instructions ?Recorded ?Confirmed trazodone 50 mg tablet 100 mg PO BEDTIME 07/11/23 07/22/23 Previous Rx's ?Medication ?Instructions ?Recorded omeprazole 40 mg capsule,delayed 40 mg PO DAILY #30 caps 07/11/23 release fluoxetine 20 mg capsule 20 mg PO DAILY 30 days #30 caps 07/17/23 gabapentin 100 mg capsule 100 mg PO BID 30 days #60 caps 07/17/23 Allergies Allergy/AdvReac Type Severity Reaction Status Date / Time haloperidol [From Haldol] Allergy Muscle Verified 12/26/23 18:39 cramps shrimp Allergy Itching Verified 12/26/23 18:39 Review of Systems Review of Systems: Yes all other systems are reviewed and are negative PMFSH Past Medical History Attestation statement: The following information was validated with the patient. Source: old records reviewed Medical History Suicidal ideation Psychiatric disorder Social History Social History Household Members: Family Household Members Other:: 1 Housing: Apartment Do you presently have visiting nurse or other home services: No Unable to assess alcohol history related to: Unknown Patient Tobacco Use Status: Current everyday Tobacco user Tobacco use type: Cigarette Cigarette Packs Per Day: 1 Cigarettes Per Day: 20.0 Second Hand Smoke Exposure: No Advance Directives: No Advance Directives Information Provided: No Do you have a plan to hurt others: No Plan service: No Sexual orientation: Straight/Heterosexual Physical Exam Vital Signs: Vital Signs: Last Vital Signs Temp 98.2 F 12/26/23 20:53 Pulse 75 12/26/23 20:53 Resp 16 12/26/23 20:53 BP 137/71 12/26/23 20:53 Pulse Ox 96 12/26/23 20:53 O2 Del Method Room Air 12/26/23 19:40 BMI result Body Mass Index 54.4 Appearance: Alert.?Oriented to person, place and time. No acute distress.?Normal affect. Eyes: Pupils equal, round and reactive to light.? ENT: Pharynx normal.?? Neck: Normal inspection.? Neck supple.?? CVS: Heart sounds normal. Normal heart rate and rhythm.? Pulses normal.?? Respiratory: No respiratory distress.? Lung sounds clear to auscultation bilaterally?? Abdomen: Soft and non-tender. Normoactive bowel sounds. ?? Skin: Skin warm and dry.? Normal skin color.? Extremities: No lower extremity edema.? No calf ttp? Neuro: Moves all extremities spontaneously. Sensation intact bilaterally. CN II-XII intact. No focal neuro deficits. Ambulates with normal steady gait. Course Reevaluation(s) Reevaluation #1: Patient leaving against medical advice, he continued to have reported dizziness position change in ambulation, he was encouraged to stay for further evaluation, we discussed concern for undifferentiated syncope, discussed potential life-threatening nature of this he verbalized understanding, but he declined stain and self removed his IV and walked out of the department reporting that he needed to get home to his mother. On review CBC is without leukocytosis, significant anemia that warrant transfusion, or thrombocytopenia. No electrolyte derangement. No SANTOS. Magnesium within normal range. LFTs within normal range. High sensitive troponin below detectable limits and EKG without acute ischemic findings to suggest ACS as etiology for syncope. Urinalysis without evidence of infection or microscopic hematuria. Orthostatic vital signs were negative. Time: 21:00 Medications Administered Discontinued Medications Generic Name Dose Route Start Last Admin Trade Name Radha PRN Reason Stop Dose Admin Sodium Chloride 1,000 mls @ 999 mls/hr 12/26/23 19:00 12/26/23 19:44 Ns IV 12/26/23 20:00 999 mls/hr .Q1H1M RAUDEL Administration Medical Decision Making Medical Decision Making [facility] Narrative: Patient is a 38-year-old male who presents emergency department for evaluation after a syncopal episode with preceding dizziness as per HPI. On evaluation he has no focal neurological deficits, however given his fall with head strike and reported headache plan to obtain CT of the head to exclude ICH, SDH, I suspect less likely to be CVA, has normal cerebellar function testing. Will obtain CBC to evaluate for leukocytosis/ anemia, CMP and lipase to evaluate for abnormal electrolytes /abnormal renal function/ abnormal hepatic/biliary function, EKG and troponin to evaluate for ischemia/ACS. Discussed with patient anxiety/panic attack may possibly have attributed to symptoms, but also concern for dizziness secondary to lack of oral intake today; dehydration, hypoglycemia. Differential Diagnosis Differential Diagnoses: The differential diagnosis associated with the presentation includes (See narrative above) Admission/Observation Consideration of admission/observation: Escalation of care including admission/observation considered Lab Data [facility] Lab Attestation statement: I reviewed the patient's lab results. (See course narrative) 12/26/23 19:23 12/26/23 19:23 Labs: Lab Results 12/26/23 12/26/23 Range/Units 19:15 19:23 WBC 8.4 (4.8-10.8) X10*3/uL RBC 4.92 (4.60-5.80) X10*6/uL Hgb 13.8 L (14.0-18.0) g/dl Hct 42.1 (42.0-52.0) % MCV 85.6 (80.0-98.0) fL MCH 28.0 (27.0-33.0) pg MCHC 32.8 (31.0-36.0) g/dl RDW 14.6 (11.0-16.0) % Plt Count 241 (160-400) X10*3/uL MPV 10.0 (9.4-12.4) fL Immature Gran % (Auto) 0.5 H (0.0-0.4) % Neut % (Auto) 70.7 (45-73) % Lymph % (Auto) 21.2 (20-40) % [place] % (Auto) 6.4 (2-11) % Eos % (Auto) 0.8 (0-4) % Baso % (Auto) 0.4 (0-2) % Lymph # (Auto) 1.8 (1.2-4.9) X10*3/uL [place] # (Auto) 0.5 (0.1-1.2) X10*3/uL Eos # (Auto) 0.1 (0.0-0.4) X10*3/uL Baso # (Auto) 0.0 (0.0-0.2) X10*3/uL Abs Immat Gran (auto) 0.04 H (0.00-0.03) X10*3/uL Absolute Neuts (auto) 6.0 (2.0-8.3) x10*3/uL Absolute Nucleated RBC 0.000 (0.0-0.012) X10*3/uL Nucleated RBC % (auto) 0.0 (0.0-0.2) /100WBC PT 11.5 (11.1-13.3) SEC INR 0.9 (0.9-1.1) Sodium 141 (135-145) mmol/L Potassium 4.1 (3.3-5.1) mmol/L Chloride 106 (96-108) mmol/L Carbon Dioxide 27 (22-29) mmol/L Anion Gap 12 (12-20) BUN 13 (9-16) mg/dL Creatinine 1.12 (0.5-1.4) mg/dL Estim Creat Clear Calc 139.5 Estimated GFR > 60 Random Glucose 102 (60-115) mg/dL Calcium 9.4 (8.4-10.2) mg/dL Magnesium 2.0 (1.6-2.6) mg/dL Total Bilirubin 0.3 (0.0-1.0) mg/dL AST 13 (5-37) U/L ALT 17 (0-40) U/L Alkaline Phosphatase 79 (39-117) U/L Troponin I High Sens < 2.7 (<3.5-35.0) ng/L Total Protein 6.8 (6.5-8.0) g/dL Albumin 4.1 (3.5-5.0) g/dL Urine Color Yellow Urine Appearance Clear Urine pH 6.0 (5.0-9.0) Ur Specific [place] 1.020 (1.005-1.025) Urine Protein Negative (Neg-Trace) mg/dL Urine Glucose (UA) Negative (Negative) mg/dL Urine Ketones Negative (Negative) mg/dL Urine Blood Negative (Negative) Urine Nitrite Negative (Negative) Ur Leukocyte Esterase Negative (Negative) Independent Interpretation I performed an independent interpretation of an: EKG Interpretation: Rate: 74 Rhythm:? Normal sinus rhythm [place]:? Normal Normal P waves.? Normal RUSTY.?? Normal QRS complex.?? ST T wave :??No ST elevation, no ST depression, no T-wave inversion qTC: 417 The study has been interpreted contemporaneously by me. Radiology Impression Discussion of test interpretation with radiology: I have reviewed the radiologist's reading. Radiologist Impression: CT/CT head/brain wo IV con IMPRESSION: 1. Unremarkable noncontrast brain CT. No acute hemorrhage, mass effect or shift. Independent Historian Clinical information obtained from an independent historian. History obtained from or confirmed by: EMS Discharge Plan Discharge Clinical Impression: Syncope Patient Disposition: Left Against Medical Advice Prescriptions: No Action omeprazole 40 mg capsule,delayed release(DR/EC) 40 mg PO DAILY Qty: 30 0RF trazodone 50 mg tablet 100 mg PO BEDTIME fluoxetine 20 mg Capsule 20 mg PO DAILY 30 Days Qty: 30 0RF gabapentin 100 mg Capsule 100 mg PO BID 30 Days Qty: 60 0RF Interventions: ED Discharge Assessment Last Done: 12/26/23 20:53 Discharge Date/Time: 12/26/23 20:54 Print Language: Azeri
--- NOTE | 2023-12-26 18:58 | PC.NURSE ---
Report given to Tanvi ROJO pt exits my care at this time.
[2023-12-26 19:28] LABS: MANUAL DIFF FLAG NO
[2023-12-26 19:35] LABS: Basophils Percent Auto 0.4 % (0-2); Eosinophils Absolute Auto 0.1 X10*3/uL (0.0-0.4); Eosinophils Percent Auto 0.8 % (0-4); Hematocrit 42.1 % (42.0-52.0); Hemoglobin 13.8 g/dl (14.0-18.0); Imm Gran Abs Auto 0.04 X10*3/uL (0.00-0.03); Imm Gran Pct Auto 0.5 % (0.0-0.4); Lymphocytes Absolute Auto 1.8 X10*3/uL (1.2-4.9); Lymphocytes Percent Auto 21.2 % (20-40); Mean Corpuscular HGB Conc 32.8 g/dl (31.0-36.0); Mean Corpuscular Volume 85.6 fL (80.0-98.0); Monocytes Absolute Auto 0.5 X10*3/uL (0.1-1.2); Monocytes Percent Auto 6.4 % (2-11); Neutrophils Percent Auto 70.7 % (45-73); Platelet Count 241 X10*3/uL (160-400); Red Blood Count 4.92 X10*6/uL (4.60-5.80); Red Cell Distribution Width 14.6 % (11.0-16.0); White Blood Count 8.4 X10*3/uL (4.8-10.8)
[2023-12-26 19:36] LABS: Appearance Urine Clear; Color Urine Yellow; Glucose Urine UA Negative (Negative); Leukocyte Esterase Urine Negative (Negative); Nitrite Urine Negative (Negative); Urine Blood Negative (Negative); Urine Ketones Negative (Negative); Urine Protein Negative (Neg-Trace)
[2023-12-26 19:38] VITALS: BP 137/71; PULSE 75
[2023-12-26 19:39] VITALS: BP 130/92; BP 142/82; PULSE 75; PULSE 86
[2023-12-26 19:40] VITALS: BP 137/71; PULSE 75; RESP 16; TEMP 36.8; O2SAT 96
[2023-12-26 19:44] LABS: INTERNATIONAL NORM RATIO 0.9 (0.9-1.1); Prothrombin Time 11.5 SEC (11.1-13.3)
[2023-12-26] MEDS: 0.9 % Sodium Chloride 1,000 ML 999 ML IV (19:44)
[2023-12-26 19:46] LABS: Alanine Aminotransferase 17 U/L (0-40); Albumin Level 4.1 g/dL (3.5-5.0); Alkaline Phosphatase 79 U/L (39-117); Anion Gap 12 (12-20); Aspartate Amino Transferase 13 U/L (5-37); Bilirubin Total 0.3 mg/dL (0.0-1.0); Blood Urea Nitrogen 13 mg/dL (9-16); Calcium 9.4 mg/dL (8.4-10.2); Carbon Dioxide 27 mmol/L (22-29); Chloride 106 mmol/L (96-108); Creatinine Clr Calc Pharmacy 139.5; Estimated Glomerular Filt Rate > 60; Glucose Random 102 mg/dL (60-115); Potassium 4.1 mmol/L (3.3-5.1); Sodium 141 mmol/L (135-145); Total Protein 6.8 g/dL (6.5-8.0)
[2023-12-26 19:58] LABS: Troponin-I High Sensitivity < 2.7 ng/L (<3.5-35.0)
--- NOTE | 2023-12-26 20:51 | PC.NURSE ---
pt reports that he wants to leave. Educated on importance of staying however pt wants to go Self removed his IV
[2023-12-26 20:53] VITALS: BP 137/71; PULSE 75; RESP 16; TEMP 36.8; O2SAT 96
== END 2023-12-26 20:54 | disposition left against medical advice (07) ==
PROVIDERS: Nurse Practitioner Family; Emergency Provider Emergency Medicine
DX: R55 Syncope and collapse (principal); F41.9 Anxiety disorder, unspecified; Z91.81 History of falling
CPT/HCPCS: 36415; 70450; 80053; 81003; 83735; 84484; 85025; 85610; 93005; 99284; 99285

== ENCOUNTER → 2023-12-26 18:32 | Outpatient (BNV) | payer OTHER, SELFPAY | PROVIDERS: Emergency Provider Emergency Medicine; Visit Provider Internal Medicine Cardiovascular Disease | DX: R55 Syncope and collapse (principal) | CPT/HCPCS: 93010 ==

== ENCOUNTER 2024-01-05 17:56 | Emergency (ER) | payer OTHER, SELFPAY ==
[2024-01-05 18:07] VITALS: BP 148/98; BP 154/91; PULSE 85; PULSE 90; RESP 16; TEMP 36.6; O2SAT 97; O2SAT 98; BMI 55.4
[2024-01-05 18:13] VITALS: RESP 20
[2024-01-05 18:22] LABS: MANUAL DIFF FLAG NO
--- NOTE | 2024-01-05 18:30 | ED_ITS ---
HPI - Anxiety General Chief Complaint: Anxiety Stated Complaint: anxiety, new meds Time Seen by Provider: 01/05/24 18:05 Source: patient, EMS and old records reviewed Mode of arrival: EMS Limitations: no limitations History of Present Illness ED Provider: CYNDIE WALLS narrative: 38 yo male with PMH of anxiety/depression here with c/o increase in anxiety after starting zoloft - no SI/HI/AH/VH. He is here c/o anxiety. He doesn't feel he needs inpatient he just has anxiety. He has a psychiatrist who he feels he can work with. PO ativan ordered MD complaint: anxiety Onset (ago): week(s) (1) Severity: mild Quality: intermittent Place: home History of similar episodes: Yes Provoking factors: medication change Relieving factors: medication Exacerbating factors: nothing Associated symptoms: denies other symptoms Related Data Home Medications ?Medication ?Instructions ?Recorded ?Confirmed trazodone 50 mg tablet 100 mg PO BEDTIME 07/11/23 01/05/24 perphenazine 8 mg tablet 8 mg PO BEDTIME 01/05/24 01/05/24 Previous Rx's ?Medication ?Instructions ?Recorded gabapentin 100 mg capsule 100 mg PO BID 30 days #60 caps 07/17/23 Allergies Allergy/AdvReac Type Severity Reaction Status Date / Time haloperidol [From Haldol] Allergy Muscle Verified 01/05/24 18:09 cramps shrimp Allergy Itching Verified 01/05/24 18:09 Review of Systems 2 Review of Systems: Constitutional : No Fever, No Chills ENT/Mouth : No Ear Pain, No Nasal Congestion, No sore throat Eyes: No Eye Pain, No Swelling, No Redness Cardiovascular : No Chest Pain, No SOB Respiratory : No Cough, No Sputum, No Dyspnea Gastrointestinal : No Nausea, No Vomiting, No Diarrhea, No Hematochezia, No Melena Genitourinary : No Dysuria, No Urinary Frequency, No Hematuria Musculoskeletal : No Myalgias Skin : No Skin Lesions, No rash Neuro : No Weakness, No Numbness, No Paresthesias, No Dizziness, No Headache Psych : positive Anxiety, positive Depression, no SI/HI All other systems reviewed and are negative PMFSH Past Medical History Attestation statement: The following information was validated with the patient. Source: old records reviewed Medical History Suicidal ideation Psychiatric disorder Social History Social History Household Members: Family Household Members Other:: 1 Housing: Apartment Do you presently have visiting nurse or other home services: No Unable to assess alcohol history related to: Unknown Patient Tobacco Use Status: Current everyday Tobacco user Tobacco use type: Cigarette Cigarette Packs Per Day: 1 Cigarettes Per Day: 20.0 Smoked in Last 30 Days: Yes Second Hand Smoke Exposure: No Advance Directives: No Advance Directives Information Provided: No service: No Sexual orientation: Straight/Heterosexual Physical Exam 2 Vital Signs: Vital Signs: Last Vital Signs Temp 97.8 F 01/05/24 18:07 Pulse 85 01/05/24 18:07 Resp 20 01/05/24 18:13 BP 154/91 H 01/05/24 18:07 Pulse Ox 97 01/05/24 18:07 O2 Del Method Room Air 01/05/24 18:07 BMI result Body Mass Index 55.4 Appearance: Alert. Oriented X3. No acute distress. calm and cooperative, articulate Eyes: Pupils equal, round and reactive to light. ENT: Pharynx normal. Neck: Normal inspection. Neck supple. CVS: Normal heart rate and rhythm. Pulses normal. Respiratory: No respiratory distress. Breath sounds normal. Abdomen: Soft and non-tender. Skin: Skin warm and dry. Normal skin color. Normal skin turgor. Extremities: No lower extremity edema. Neuro: Oriented X 3. No motor deficit. No sensory deficit. Medications Administered Discontinued Medications Generic Name Dose Route Start Last Admin Trade Name Guillermoq PRN Reason Stop Dose Admin Lorazepam 2 mg 01/05/24 18:30 01/05/24 18:32 Lorazepam 1 Mg Tablet PO 01/05/24 18:31 2 mg ONCE ONE Administration Medical Decision Making Medical Decision Making MDM Narrative: 38 yo male with PMH of anxiety/depression here with c/o anxiet due to med changes x 1 month on zoloft denies SI/HI/AH/VH at this time PO ativan ordered. He denies wanting to talk to crisis. Does not feel inpatient will help him. He states he can manage with his psychiatrist and wants to go home at this time stable for DC. He is not sectionable. Differential Diagnosis Differential Diagnoses: The differential diagnosis associated with the presentation includes anxiety, med reaction Admission/Observation Consideration of admission/observation: Escalation of care including admission/observation considered declines crisis team Lab Data MDM Lab Attestation statement: I reviewed the patient's lab results. 01/05/24 18:18 01/05/24 18:18 Labs: Lab Results 01/05/24 Range/Units 18:18 WBC 8.0 (4.8-10.8) X10*3/uL RBC 5.12 (4.60-5.80) X10*6/uL Hgb 14.3 (14.0-18.0) g/dl Hct 44.0 (42.0-52.0) % MCV 85.9 (80.0-98.0) fL MCH 27.9 (27.0-33.0) pg MCHC 32.5 (31.0-36.0) g/dl RDW 14.6 (11.0-16.0) % Plt Count 247 (160-400) X10*3/uL MPV 10.0 (9.4-12.4) fL Immature Gran % (Auto) 0.4 (0.0-0.4) % Neut % (Auto) 66.8 (45-73) % Lymph % (Auto) 24.5 (20-40) % Will % (Auto) 6.9 (2-11) % Eos % (Auto) 0.9 (0-4) % Baso % (Auto) 0.5 (0-2) % Lymph # (Auto) 2.0 (1.2-4.9) X10*3/uL Will # (Auto) 0.6 (0.1-1.2) X10*3/uL Eos # (Auto) 0.1 (0.0-0.4) X10*3/uL Baso # (Auto) 0.0 (0.0-0.2) X10*3/uL Abs Immat Gran (auto) 0.03 (0.00-0.03) X10*3/uL Absolute Neuts (auto) 5.3 (2.0-8.3) x10*3/uL Absolute Nucleated RBC 0.000 (0.0-0.012) X10*3/uL Nucleated RBC % (auto) 0.0 (0.0-0.2) /100WBC External Record Review External record reviewed: Inpatient record Discharge Plan Discharge Clinical Impression: Acute anxiety Patient Disposition: Home, Self-Care Instructions: Anxiety (ED) Additional Instructions: you are free to return at any time return for thoughts of self harm or harm to others talk to your psychiatrist Prescriptions: No Action perphenazine 8 mg tablet 8 mg PO BEDTIME trazodone 50 mg tablet 100 mg PO BEDTIME gabapentin 100 mg Capsule 100 mg PO BID 30 Days Qty: 60 0RF Print Language: Uzbek
[2024-01-05] MEDS: LORazepam 1 MG TABLET 2 MG PO (18:32)
[2024-01-05 18:37] LABS: Basophils Percent Auto 0.5 % (0-2); Eosinophils Absolute Auto 0.1 X10*3/uL (0.0-0.4); Eosinophils Percent Auto 0.9 % (0-4); Hemoglobin 14.3 g/dl (14.0-18.0); Imm Gran Abs Auto 0.03 X10*3/uL (0.00-0.03); Imm Gran Pct Auto 0.4 % (0.0-0.4); Lymphocytes Percent Auto 24.5 % (20-40); Mean Corpuscular HGB Conc 32.5 g/dl (31.0-36.0); Mean Corpuscular Hemoglobin 27.9 pg (27.0-33.0); Mean Corpuscular Volume 85.9 fL (80.0-98.0); Monocytes Absolute Auto 0.6 X10*3/uL (0.1-1.2); Monocytes Percent Auto 6.9 % (2-11); Neutrophils Absolute Auto 5.3 x10*3/uL (2.0-8.3); Neutrophils Percent Auto 66.8 % (45-73); Platelet Count 247 X10*3/uL (160-400); Red Blood Count 5.12 X10*6/uL (4.60-5.80); Red Cell Distribution Width 14.6 % (11.0-16.0)
--- NOTE | 2024-01-05 18:55 | MHC.EDTECH ---
This pct just assumed care of patient ,vitals taken ,patient waiting for discharged Paper work .
[2024-01-05 18:56] VITALS: BP 132/81; PULSE 83; RESP 16; TEMP 36.2; O2SAT 97
[2024-01-05 19:12] LABS: Anion Gap 15 (12-20)
--- NOTE | 2024-01-05 19:22 | PC.NURSE ---
This RN assumed pt care @ 1900. Pt ca&oX4, no signs of distress. Plan of care ongoing.
[2024-01-05 19:35] LABS: Blood Urea Nitrogen 10 mg/dL (9-16); Carbon Dioxide 25 mmol/L (22-29); Chloride 104 mmol/L (96-108); Creatinine Clr Calc Pharmacy 138.6; Estimated Glomerular Filt Rate > 60; Glucose Random 113 mg/dL (60-115); Potassium 4.3 mmol/L (3.3-5.1); Sodium 140 mmol/L (135-145)
[2024-01-05 19:36] LABS: Alanine Aminotransferase 20 U/L (0-40); Albumin Level 4.3 g/dL (3.5-5.0); Alkaline Phosphatase 82 U/L (39-117); Aspartate Amino Transferase 15 U/L (5-37); Bilirubin Direct 0.1 mg/dL (0.0-0.5); Bilirubin Total 0.4 mg/dL (0.0-1.0); Calcium 9.5 mg/dL (8.4-10.2); Magnesium 2.3 mg/dL (1.6-2.6); Total Protein 7.1 g/dL (6.5-8.0)
[2024-01-05 19:37] LABS: Ethanol < 10 mg/dL
[2024-01-05 19:38] VITALS: BP 132/81; PULSE 83; RESP 16; TEMP 36.2; O2SAT 97
== END 2024-01-05 19:42 | disposition home or self-care (01) ==
PROVIDERS: Emergency Provider Emergency Medicine
DX: F41.9 Anxiety disorder, unspecified (principal); F33.9 Major depressive disorder, recurrent, unspecified; F17.210 Nicotine dependence, cigarettes, uncomplicated; Z79.899 Other long term (current) drug therapy
CPT/HCPCS: 36415; 80048; 80076; 80307; 83735; 85025; 99284

== ENCOUNTER 2024-01-19 18:04 | Emergency (ER) | payer OTHER, SELFPAY ==
[2024-01-19 18:28] VITALS: BP 172/92; PULSE 97; O2SAT 97
[2024-01-19 18:35] VITALS: BP 178/96; PULSE 85; RESP 18; TEMP 36.1; O2SAT 96; BMI 53.9
--- NOTE | 2024-01-19 19:45 | PC.NURSE ---
This RN assumed pt care @ 1900. Pt ambulates with a steady gait. Pt ca&ox4, no signs of distress. Pt requested and given water. Plan of care ongoing.
[2024-01-19 19:59] VITALS: BP 144/87; PULSE 77; RESP 16; TEMP 36.8; O2SAT 97
--- NOTE | 2024-01-19 19:59 | ECG_ITS ---
Test Reason : ANXIETY Blood Pressure : / mmHG Vent. Rate : 077 BPM Atrial Rate : 077 BPM P-R Int : 166 ms QRS Dur : 094 ms QT Int : 366 ms P-R-T Axes : 043 034 029 degrees QTc Int : 414 ms Sinus rhythm with occasional Premature ventricular complexes Otherwise normal ECG When compared with ECG of 26-DEC-2023 18:55, Premature ventricular complexes are now Present Referred By: Rowena Cotter Electronically Signed By:Trell Barger
[2024-01-19] MEDS: diphenhydrAMINE HCL 25 MG CAPSULE PO (20:31)
--- NOTE | 2024-01-19 20:33 | PC.NURSE ---
Pt medicated per aug. Plan of care ongoing.
--- NOTE | 2024-01-19 20:53 | ED.GENADULT ---
HPI - General Adult General Chief complaint: General Medical Stated complaint: Anxiety Time Seen by Provider: 01/19/24 18:08 Source: patient and EMS Mode of arrival: EMS Limitations: no limitations History of Present Illness ED Provider: Dr. Rowena Cotter HPI narrative: patient comes to the emergency room via ambulance complaining of anxiety. Patient states that he was in a basketball course, complaining of feeling very anxious, shortness of breath, could not swallow, palpitations. Patient states that he does suffer from anxiety. Patient takes medications but states that they are not working very well for him. Denies SI or HI Related Data Home Medications ?Medication ?Instructions ?Recorded ?Confirmed trazodone 50 mg tablet 100 mg PO BEDTIME 07/11/23 01/05/24 perphenazine 8 mg tablet 8 mg PO BEDTIME 01/05/24 01/05/24 Previous Rx's ?Medication ?Instructions ?Recorded gabapentin 100 mg capsule 100 mg PO BID 30 days #60 caps 07/17/23 Allergies Allergy/AdvReac Type Severity Reaction Status Date / Time haloperidol [From Haldol] Allergy Muscle Verified 01/19/24 18:36 cramps shrimp Allergy Itching Verified 01/19/24 18:36 Review of Systems Review of Systems: Constitutional : No Weight loss, No Fever, No Chills, No Night Sweats, No Fatigue, No Malaise ENT/Mouth : No Hearing loss, No Ear Pain, No Nasal Congestion, No Sinus Pain, No Hoarseness, No sore throat, No Rhinorrhea, No Swallowing Difficulty Eyes: No Eye Pain, No Swelling, No Redness, No Foreign Body, No Discharge, No Vision Changes Cardiovascular : No Chest Pain, No SOB, No Dyspnea on Exertion, No Orthopnea, No Edema, No Palpitations Respiratory : No Cough, No Sputum, No Wheezing, No Smoke Exposure, No Dyspnea Gastrointestinal : No Nausea, No Vomiting, No Diarrhea, No Constipation, No abdominal Pain, No Hematochezia, No Melena Genitourinary : no irregular bleeding, No Dysuria, No Urinary Frequency, No Hematuria, No Urinary Incontinence, No Urgency, No Flank Pain, No Urinary Flow Changes, No Hesitancy Musculoskeletal : No joint pain, No Myalgias, No Joint Swelling Skin : No Skin Lesions, No rash Neuro : No Weakness, No Numbness, No Paresthesias, No Loss of Consciousness, No Dizziness, No Headache Psych : complaining of anxiety/ panic attack today. No Depression, No SI/HI/AH/VH, No Social Issues, Heme/Lymph: No Bruising, No Bleeding,No Lymphadenopathy Endocrine : No Polyuria, No Polydipsia, No Temperature Intolerance [facility] Past Medical History Medical History Suicidal ideation Psychiatric disorder Social History Social History Household Members: Family Household Members Other:: 1 Housing: Apartment Do you presently have visiting nurse or other home services: No Unable to assess alcohol history related to: Unknown Patient Tobacco Use Status: Current everyday Tobacco user Tobacco use type: Cigarette Cigarette Packs Per Day: 1 Cigarettes Per Day: 20.0 Second Hand Smoke Exposure: No Advance Directives: No Advance Directives Information Provided: No Do you have a plan to hurt others: No Plan service: No Sexual orientation: Straight/Heterosexual Physical Exam ED Vital Signs: Vital Signs - 24 hr 01/19/24 18:35 01/19/24 19:59 Temperature 97 F 98.2 F Pulse Rate 85 77 Respiratory Rate 18 16 Blood Pressure 178/96 H 144/87 H Pulse Oximetry 96 97 Oxygen Delivery Method Room Air Room Air BMI result Body Mass Index 53.9 Const Other: Appearance: Alert. Oriented X3. No acute distress. Eyes: Pupils equal, round and reactive to light. ENT: Pharynx normal. Neck: Normal inspection. Neck supple. No lymph nodes noted. No crepitus CVS: Normal heart rate and rhythm. Pulses normal. Normal S1 and S2 Respiratory: No respiratory distress. Breath sounds normal. No Wheezing. No rales Abdomen: Soft and nontender. No rigidity. No distention. Skin: Skin warm and dry. Normal skin color. Normal skin turgor. Extremities: No lower extremity edema. No Lacerations. No Rash Neuro: Oriented X 3. No motor deficit. No sensory deficit. Moving all extremities. No slurred speech. CN 2 through 12 grossly intact Psych: calm, cooperative, normal affect Medications Administered Discontinued Medications Generic Name Dose Route Start Last Admin Trade Name Freq PRN Reason Stop Dose Admin Diphenhydramine HCl 25 mg 01/19/24 19:59 01/19/24 20:31 Diphenhydramine Hcl 25 Mg Capsule PO 01/19/24 20:00 25 mg ONCE ONE Administration Medical Decision Making Medical Decision Making [facility] Narrative: my interpretation of EKG: Normal sinus rhythm, heart rate 77, occasional PVCs, no ST segment depression or elevation, no T-wave inversion, QTC 414 - my interpretation of labs: Normal hematology chemistry and troponin - patient states that he feels much better, no longer anxious, patient states that he has an appointment coming up with his psychiatrist. Differential Diagnosis Differential Diagnoses: The differential diagnosis associated with the presentation includes ( Anxiety, depression, panic attack, ACS, viral URI) Admission/Observation Consideration of admission/observation: Escalation of care including admission/observation considered ( given patient's initial since symptoms and presentation, observation was considered) Lab Data [facility] Lab Attestation statement: I reviewed the patient's lab results. 01/19/24 21:03 01/19/24 21:03 Labs: Lab Results 01/19/24 Range/Units 21:03 WBC 8.3 (4.8-10.8) X10*3/uL RBC 4.82 (4.60-5.80) X10*6/uL Hgb 13.5 L (14.0-18.0) g/dl Hct 41.1 L (42.0-52.0) % MCV 85.3 (80.0-98.0) fL MCH 28.0 (27.0-33.0) pg MCHC 32.8 (31.0-36.0) g/dl RDW 14.4 (11.0-16.0) % Plt Count 196 (160-400) X10*3/uL MPV 10.0 (9.4-12.4) fL Immature Gran % (Auto) 0.2 (0.0-0.4) % Neut % (Auto) 68.5 (45-73) % Lymph % (Auto) 21.5 (20-40) % [place] % (Auto) 8.3 (2-11) % Eos % (Auto) 1.0 (0-4) % Baso % (Auto) 0.5 (0-2) % Lymph # (Auto) 1.8 (1.2-4.9) X10*3/uL [place] # (Auto) 0.7 (0.1-1.2) X10*3/uL Eos # (Auto) 0.1 (0.0-0.4) X10*3/uL Baso # (Auto) 0.0 (0.0-0.2) X10*3/uL Abs Immat Gran (auto) 0.02 (0.00-0.03) X10*3/uL Absolute Neuts (auto) 5.7 (2.0-8.3) x10*3/uL Absolute Nucleated RBC 0.000 (0.0-0.012) X10*3/uL Nucleated RBC % (auto) 0.0 (0.0-0.2) /100WBC Sodium 140 (135-145) mmol/L Potassium 4.2 (3.3-5.1) mmol/L Chloride 105 (96-108) mmol/L Carbon Dioxide 28 (22-29) mmol/L Anion Gap 11 L (12-20) BUN 15 (9-16) mg/dL Creatinine 1.09 (0.5-1.4) mg/dL Estim Creat Clear Calc 142.6 Estimated GFR > 60 Random Glucose 98 (60-115) mg/dL Calcium 9.1 (8.4-10.2) mg/dL Independent Interpretation I performed an independent interpretation of an: EKG Critical Care Time Critical Care Time Critical Care Time: Yes Total Critical Care Time: 30 Attestation: I have personally provided critical care time. Time includes review of lab data, radiology results, discussion with consultants, and monitoring for potential decompensation. Intervention performed as documented. Discharge Plan Discharge Clinical Impression: Anxiety Patient Disposition: Home, Self-Care Instructions: Anxiety (ED) Additional Instructions: Please follow-up with your primary care physician tomorrow. If you have any worsening or new symptoms, please return to the emergency room or call 911 Prescriptions: No Action perphenazine 8 mg tablet 8 mg PO BEDTIME trazodone 50 mg tablet 100 mg PO BEDTIME gabapentin 100 mg Capsule 100 mg PO BID 30 Days Qty: 60 0RF Print Language: Tajik
[2024-01-19 21:06] LABS: MANUAL DIFF FLAG NO
[2024-01-19 21:09] LABS: Basophils Percent Auto 0.5 % (0-2); Eosinophils Absolute Auto 0.1 X10*3/uL (0.0-0.4); Hematocrit 41.1 % (42.0-52.0); Hemoglobin 13.5 g/dl (14.0-18.0); Imm Gran Abs Auto 0.02 X10*3/uL (0.00-0.03); Imm Gran Pct Auto 0.2 % (0.0-0.4); Lymphocytes Absolute Auto 1.8 X10*3/uL (1.2-4.9); Lymphocytes Percent Auto 21.5 % (20-40); Mean Corpuscular HGB Conc 32.8 g/dl (31.0-36.0); Mean Corpuscular Volume 85.3 fL (80.0-98.0); Monocytes Absolute Auto 0.7 X10*3/uL (0.1-1.2); Monocytes Percent Auto 8.3 % (2-11); Neutrophils Absolute Auto 5.7 x10*3/uL (2.0-8.3); Neutrophils Percent Auto 68.5 % (45-73); Platelet Count 196 X10*3/uL (160-400); Red Blood Count 4.82 X10*6/uL (4.60-5.80); Red Cell Distribution Width 14.4 % (11.0-16.0); White Blood Count 8.3 X10*3/uL (4.8-10.8)
[2024-01-19 21:24] LABS: Anion Gap 11 (12-20); Blood Urea Nitrogen 15 mg/dL (9-16); Calcium 9.1 mg/dL (8.4-10.2); Carbon Dioxide 28 mmol/L (22-29); Chloride 105 mmol/L (96-108); Creatinine Clr Calc Pharmacy 142.6; Estimated Glomerular Filt Rate > 60; Glucose Random 98 mg/dL (60-115); Potassium 4.2 mmol/L (3.3-5.1); Sodium 140 mmol/L (135-145)
[2024-01-19 21:47] VITALS: BP 152/95; PULSE 85; RESP 16; TEMP 36.1; O2SAT 98
[2024-01-19 21:50] VITALS: BP 152/95; PULSE 85; RESP 16; TEMP 36.1; O2SAT 98
== END 2024-01-19 21:51 | disposition home or self-care (01) ==
PROVIDERS: Emergency Provider Emergency Medicine
DX: F41.9 Anxiety disorder, unspecified (principal); F17.210 Nicotine dependence, cigarettes, uncomplicated; F33.9 Major depressive disorder, recurrent, unspecified; Z79.899 Other long term (current) drug therapy
CPT/HCPCS: 36415; 80048; 85025; 93005; 99283; 99284

== ENCOUNTER → 2024-01-19 19:59 | Outpatient (BNV) | payer OTHER, SELFPAY | PROVIDERS: Emergency Provider Emergency Medicine; Visit Provider Internal Medicine Cardiovascular Disease | DX: F41.9 Anxiety disorder, unspecified (principal) | CPT/HCPCS: 93010 ==

== ENCOUNTER 2024-01-24 21:56 | Emergency (ER) | payer OTHER, SELFPAY ==
[2024-01-24 22:01] VITALS: BP 152/88; BP 153/86; PULSE 105; PULSE 83; RESP 18; TEMP 36.4; O2SAT 97; BMI 54.6
[2024-01-24 22:29] LABS: MANUAL DIFF FLAG NO
[2024-01-24 22:32] LABS: Basophils Absolute Auto 0.1 X10*3/uL (0.0-0.2); Basophils Percent Auto 0.6 % (0-2); Eosinophils Absolute Auto 0.1 X10*3/uL (0.0-0.4); Eosinophils Percent Auto 0.6 % (0-4); Hematocrit 41.5 % (42.0-52.0); Hemoglobin 13.7 g/dl (14.0-18.0); Imm Gran Abs Auto 0.03 X10*3/uL (0.00-0.03); Imm Gran Pct Auto 0.4 % (0.0-0.4); Lymphocytes Absolute Auto 1.7 X10*3/uL (1.2-4.9); Lymphocytes Percent Auto 20.6 % (20-40); Mean Corpuscular Volume 84.7 fL (80.0-98.0); Mean Platelet Volume 10.2 fL (9.4-12.4); Monocytes Absolute Auto 0.6 X10*3/uL (0.1-1.2); Monocytes Percent Auto 6.7 % (2-11); Neutrophils Absolute Auto 5.8 x10*3/uL (2.0-8.3); Neutrophils Percent Auto 71.1 % (45-73); Platelet Count 214 X10*3/uL (160-400); Red Cell Distribution Width 14.2 % (11.0-16.0); White Blood Count 8.2 X10*3/uL (4.8-10.8)
[2024-01-24 22:47] LABS: Alanine Aminotransferase 20 U/L (0-40); Albumin Level 4.3 g/dL (3.5-5.0); Alkaline Phosphatase 73 U/L (39-117); Anion Gap 12 (12-20); Aspartate Amino Transferase 17 U/L (5-37); Bilirubin Direct 0.1 mg/dL (0.0-0.5); Bilirubin Total 0.3 mg/dL (0.0-1.0); Blood Urea Nitrogen 12 mg/dL (9-16); Calcium 9.5 mg/dL (8.4-10.2); Carbon Dioxide 29 mmol/L (22-29); Chloride 103 mmol/L (96-108); Creatinine Clr Calc Pharmacy 150.6; Estimated Glomerular Filt Rate > 60; Glucose Random 106 mg/dL (60-115); Lipase 9 U/L (8-78); Potassium 4.2 mmol/L (3.3-5.1); Sodium 140 mmol/L (135-145); Total Protein 7.1 g/dL (6.5-8.0)
== END 2024-01-25 04:52 | disposition left against medical advice (07) ==
PROVIDERS: Emergency Provider Emergency Medicine
DX: R10.9 Unspecified abdominal pain (principal); K59.00 Constipation, unspecified; Z53.21 Procedure and treatment not carried out due to patient leaving prior to being seen by health care provider
CPT/HCPCS: 36415; 80048; 80076; 83690; 85025; 99281; 99283

== ENCOUNTER 2024-02-10 20:32 | Emergency (ER) | payer OTHER, SELFPAY ==
--- NOTE | 2024-02-10 20:42 | ED_ITS ---
HPI - General Adult General Stated complaint: CRISIS Time Seen by Provider: 02/10/24 20:40 Source: patient and EMS Mode of arrival: EMS Limitations: no limitations History of Present Illness ED Provider: Cynthia Sadler PA-C HPI narrative: Patient is a 38 year old assigned male at with a history of MDD presenting to the emergency department today with increased anxiety. Patient states that he is feeling increasingly anxious and wants to talk to someone. Patient states that he has no thoughts of harming himself or others. Patient denies any dizziness, lightheadedness, abdominal pain, nausea, vomiting, fever, chills, blurry vision, double vision, loss of vision, chest pain, difficulty breathing, shortness of breath, back pain, night sweats, pain with urination, increased urinary frequency, increased urinary urgency, blood in his urine or stool, syncope or a near syncopal episode, recent trauma or falls, bowel incontinence, bladder incontinence, or any other complaints at this time. Onset (ago): day(s) Relieving factors: none Exacerbating factors: none Associated symptoms: denies other symptoms Treatments prior to arrival: none Related Data Home Medications ?Medication ?Instructions ?Recorded ?Confirmed trazodone 50 mg tablet 100 mg PO BEDTIME 07/11/23 02/10/24 perphenazine 8 mg tablet 8 mg PO BEDTIME 01/05/24 02/10/24 aripiprazole 2 mg tablet 2 mg PO DAILY 02/10/24 02/10/24 sertraline 50 mg tablet 50 mg PO DAILY 02/10/24 02/10/24 Allergies Allergy/AdvReac Type Severity Reaction Status Date / Time haloperidol [From Haldol] Allergy Muscle Verified 02/10/24 21:27 cramps shrimp Allergy Itching Verified 02/10/24 21:27 Review of Systems Constitutional: Constitutional: Reports no additional constitutional complaints, Denies chills, Denies fever(s) and Denies night sweats Eyes: Eyes: Reports no additional eye complaints, Denies blurry vision, Denies change in vision, Denies diplopia, Denies eye discharge, Denies loss of vision and Denies eye pain ENT: Denies dizziness Cardiovascular: Cardiovascular: Reports no additional cardiovascular complaints, Denies chest pain, Denies lightheadedness, Denies Loss of Consciousness and Denies dyspnea Respiratory: Respiratory: Reports no additional respiratory complaints and Denies dyspnea Gastrointestinal: Gastrointestinal: Reports no additional gastrointestinal complaints, Denies abdominal pain, Denies melena, Denies hematochezia, Denies change in bowel habits and Denies change in stool character Genitourinary: Genitourinary: Reports no additional male genitourinary complaints, Denies hematuria, Denies oliguria, Denies difficulty urinating, Denies dysuria, Denies urinary frequency, Denies urinary hesitancy, Denies urinary incontinence and Denies urinary urgency Musculoskeletal: Musculoskeletal: Reports no additional musculoskeletal complaints, Denies numbness and Denies tingling Neurologic: Denies dizziness, Denies loss of vision, Denies numbness and Denies tingling Psychiatric: Psychiatric: Reports no additional psychiatric complaints Endocrine: Endocrine: Reports no additional endocrine complaints Hematologic/Lymphatic: Hematologic/Lymphatic: Reports no additional hematologic/lymphatic complaints Allergic/Immunologic: Allergic/Immunologic: Reports no additional all ergic/immunologic complaints PMFSH Past Medical History Attestation statement: The following information was validated with the patient. Source: old records reviewed and nursing notes reviewed Medical History Suicidal ideation Psychiatric disorder Social History Social History Household Members: Family Household Members Other:: 1 Housing: Apartment Do you presently have visiting nurse or other home services: No Unable to assess alcohol history related to: Unknown Patient Tobacco Use Status: Current everyday Tobacco user Tobacco use type: Cigarette Cigarette Packs Per Day: 1 Cigarettes Per Day: 20.0 Second Hand Smoke Exposure: No Advance Directives: No Advance Directives Information Provided: No Do you have a plan to hurt others: No Plan service: No Sexual orientation: Straight/Heterosexual Physical Exam ED Vital Signs: Vital Signs - 24 hr 02/10/24 20:47 02/10/24 20:51 Temperature 0 F L Pulse Rate 110 H 110 H Respiratory Rate 18 18 Blood Pressure 150/90 H 150/90 H Pulse Oximetry 98 98 Const General: cooperative, no acute distress, alert and awake Nutritional Appearance: well nourished Orientation/consciousness: patient oriented x3 Limitations: no limitations HENMT Head: Yes normal to inspection and Yes atraumatic Ears: hearing grossly normal bilaterally and external ears normal General nose exam: Normal external nose present, no nasal discharge noted and no epistaxis Face and sinus: Yes normal facial exam, No abrasion and No laceration Mouth: Normal oral and palatal mucosa present, no drooling and no muffled voice Eyes General: appearance normal, both eyes and all related structures Periorbital: periorbital findings normal Eyelids: Yes eyelids normal Conjunctivae: conjunctivae normal Pupils: Equal, round and reactive pupils present EOM: EOMs intact bilaterally Neck Neck: Yes normal visual inspection, Yes full ROM and Yes no lymphadenopathy Chest Chest palpation & inspection: normal inspection of the chest Resp Effort & Inspection: normal respiratory effort and able to speak in complete sentences GI Inspection: Yes normal to inspection Neuro General: patient oriented x3 and moves all extremities Cranial nerves: Yes Equal, round and reactive pupils present Cognition (Neuro): normal cognition Extrem General: Yes normal to inspection, Yes full ROM and Yes capillary refill normal Psych Appearance: grossly normal Mental Status: mental status grossly normal Affect: normal affect Attitude: cooperative Thought process: Normal thought process present Thought content: Normal thought content present Insight: Good insight present (Psych) Medical Decision Making Medical Decision Making MDM Narrative: Patient is a 38 year old assigned male at with a history of MDD presenting to the emergency department today with increased anxiety. Patient's physical exam was unremarkable. I explained my physical exam findings to the patient. I answered all questions asked by the patient. Patient requested to leave shortly after I performed my physical examination. He stated that he does not want to hurt himself or others and he wants to leave. I stressed the importance of the patient taking his medication as directed (either prescribed or as the over the counter packaging recommends). I stressed the importance of the patient following up with his primary care provider. I stressed the importance of the patient returning to the emergency department immediately if his symptoms were to worsen or if he were to develop any dizziness, shortness of breath, difficulty breathing, chest pain, blurry vision, loss of vision, nausea, vomiting, abdominal pain, fever, chills, back pain, or any other complaints. Patient verbalized agreement and understanding with this treatment plan and discharge. Differential Diagnosis Differential Diagnoses: The differential diagnosis associated with the presentation includes Anxiety Admission/Observation Consideration of admission/observation: Escalation of care including admission/observation considered Patient would have been admitted to the hospital had his clinical presentation warranted hospital admission. Independent Historian Clinical information obtained from an independent historian. History obtained f rom or confirmed by: EMS (EMS provided additional history and confirmed the history provided by the patient.) Discharge Plan Discharge Clinical Impression: Anxiety Patient Disposition: Home, Self-Care Instructions: Anxiety (ED) Additional Instructions: Follow up with your primary care provider. Return to the emergency department immediately if your symptoms worsen or if you develop any dizziness, shortness of breath, difficulty breathing, chest pain, blurry vision, loss of vision, nausea, vomiting, abdominal pain, fever, chills, back pain, or any other complaints. Prescriptions: No Action perphenazine 8 mg tablet 8 mg PO BEDTIME aripiprazole 2 mg tablet 2 mg PO DAILY trazodone 50 mg tablet 100 mg PO BEDTIME sertraline 50 mg tablet 50 mg PO DAILY Referrals: [facility] Family Medicine [Provider Group] (Call to establish and follow up with a primary care provider. If you already have a primary care provider, please follow up with them.) [facility] Primary Care, [facility] [Provider Group] (Call to establish and follow up with a primary care provider. If you already have a primary care provider, please follow up with them.) [facility] Primary Care,[facility] [Provider Group] (Call to establish and follow up with a primary care provider. If you already have a primary care provider, please follow up with them.) Interventions: ED Discharge Assessment Last Done: 02/10/24 20:51 Discharge Date/Time: 02/10/24 20:55 Print Language: Macedonian
[2024-02-10 20:43] VITALS: BP 150/90; PULSE 110; O2SAT 97
--- NOTE | 2024-02-10 20:45 | PC.NURSE ---
This RN assumed care of pt. Received report from EMILY. At that time, pt became agitated and expressed desire to leave. per CAMERON Sadler, pt may leave under own recognizance. Verbal discharge given.
[2024-02-10 20:47] VITALS: BP 150/90; PULSE 110; RESP 18; O2SAT 98
[2024-02-10 20:51] VITALS: BP 150/90; PULSE 110; RESP 18; TEMP -17.7; TEMP 0; O2SAT 98
== END 2024-02-10 20:55 | disposition home or self-care (01) ==
LOC: HO.ED 20:53
PROVIDERS: Emergency Provider Emergency Medicine Emergency Medical Services
DX: F41.9 Anxiety disorder, unspecified (principal); F17.210 Nicotine dependence, cigarettes, uncomplicated; Z79.899 Other long term (current) drug therapy
CPT/HCPCS: 99281

== ENCOUNTER 2024-02-10 20:54 | Emergency (ER) | payer OTHER, SELFPAY ==
[2024-02-10 21:22] VITALS: BP 109/89; PULSE 90; RESP 20; TEMP 37.2; O2SAT 97; BMI 32.9
--- NOTE | 2024-02-10 21:37 | ED_ITS ---
HPI - General Adult General Chief complaint: Behavioral Concerns Stated complaint: needs help/can't decide. Wants to stay Time Seen by Provider: 02/10/24 21:37 Source: patient Mode of arrival: ambulatory Limitations: no limitations History of Present Illness ED Provider: Cynthia Sadler PA-C HPI narrative: Patient is a 38 year old assigned male at with a history of MDD presenting to the emergency department today with increased paranoia and suicidal ideation. Patient states that he is feeling increasingly paranoid and wants to talk to someone. Patient states that he has no current thoughts of harming himself or others. However, the patient states that this morning he did have thoughts of taking all of his medications in an attempt to kill himself. Patient denies any dizziness, lightheadedness, abdominal pain, nausea, vomiting, fever, chills, blurry vision, double vision, loss of vision, chest pain, difficulty breathing, shortness of breath, back pain, night sweats, pain with urination, increased urinary frequency, increased urinary urgency, blood in his urine or stool, syncope or a near syncopal episode, recent trauma or falls, bowel incontinence, bladder incontinence, or any other complaints at this time. Relieving factors: none Exacerbating factors: none Associated symptoms: denies other symptoms Treatments prior to arrival: none Related Data Home Medications ?Medication ?Instructions ?Recorded ?Confirmed trazodone 50 mg tablet 100 mg PO BEDTIME 07/11/23 02/10/24 perphenazine 8 mg tablet 8 mg PO BEDTIME 01/05/24 02/10/24 aripiprazole 2 mg tablet 2 mg PO DAILY 02/10/24 02/10/24 sertraline 50 mg tablet 50 mg PO DAILY 02/10/24 02/10/24 Allergies Allergy/AdvReac Type Severity Reaction Status Date / Time haloperidol [From Haldol] Allergy Muscle Verified 02/10/24 21:27 cramps shrimp Allergy Itching Verified 02/10/24 21:27 Review of Systems 2 Constitutional: Constitutional: Reports no additional constitutional complaints, Denies chills, Denies fever(s) and Denies night sweats Eyes: Eyes: Reports no additional eye complaints, Denies blurry vision, Denies change in vision, Denies diplopia, Denies eye discharge, Denies loss of vision and Denies eye pain ENT: Denies dizziness Cardiovascular: Cardiovascular: Reports no additional cardiovascular complaints, Denies chest pain, Denies lightheadedness, Denies Loss of Consciousness and Denies dyspnea Respiratory: Respiratory: Reports no additional respiratory complaints and Denies dyspnea Gastrointestinal: Gastrointestinal: Reports no additional gastrointestinal complaints, Denies abdominal pain, Denies melena, Denies hematochezia, Denies change in bowel habits and Denies change in stool character Genitourinary: Genitourinary: Reports no additional male genitourinary complaints, Denies hematuria, Denies oliguria, Denies difficulty urinating, Denies dysuria, Denies urinary frequency, Denies urinary hesitancy, Denies urinary incontinence and Denies urinary urgency Musculoskeletal: Musculoskeletal: Reports no additional musculoskeletal complaints, Denies numbness and Denies tingling Neurologic: Denies dizziness, Denies loss of vision, Denies numbness and Denies tingling Psychiatric: Psychiatric: Reports paranoia, Denies homicidal ideation and Reports suicidal ideation Endocrine: Endocrine: Reports no additional endocrine complaints Hematologic/Lymphatic: Hematologic/Lymphatic: Reports no additional hematologic/lymphatic complaints Allergic/Immunologic: Allergic/Immunologic: Reports no additional allergic/immunologic complaints PMFSH Past Medical History Attestation statement: The following information was validated with the patient. Source: old records reviewed and nursing notes reviewed Medical History Suicidal ideation Psychiatric disorder Social History Social History Household Members: Family Household Members Other:: 1 Housing: Apartment Do you presently have visiting nurse or other home services: No Unable to assess alcohol history related to: Unknown Patient Tobacco Use Status: Current everyday Tobacco user Tobacco use type: Cigarette Cigarette Packs Per Day: 1 Cigarettes Per Day: 20.0 Second Hand Smoke Exposure: No Advance Directives: No Advance Directives Information Provided: No Do you have a plan to hurt others: No Plan service: No Sexual orientation: Straight/Heterosexual Physical Exam ED Vital Signs: Vital Signs - 24 hr 02/10/24 21:22 Temperature 98.9 F Pulse Rate 90 Respiratory Rate 20 Blood Pressure 109/89 Pulse Oximetry 97 Oxygen Delivery Method Room Air BMI result Body Mass Index 32.9 Const General: cooperative, no acute distress, alert and awake Nutritional Appearance: well nourished Orientation/consciousness: patient oriented x3 Limitations: no limitations HENMT Head: Yes normal to inspection and Yes atraumatic Ears: hearing grossly normal bilaterally and external ears normal General nose exam: Normal external nose present, no nasal discharge noted and no epistaxis Face and sinus: Yes normal facial exam, No abrasion and No laceration Mouth: Normal oral and palatal mucosa present, no drooling and no muffled voice Eyes General: appearance normal, both eyes and all related structures Periorbital: periorbital findings normal Eyelids: Yes eyelids normal Conjunctivae: conjunctivae normal Pupils: Equal, round and reactive pupils present EOM: EOMs intact bilaterally Neck Neck: Yes normal visual inspection, Yes full ROM and Yes no lymphadenopathy Chest Chest palpation & inspection: normal inspection of the chest Resp Effort & Inspection: normal respiratory effort and able to speak in complete sentences GI Inspection: Yes normal to inspection Neuro General: patient oriented x3 and moves all extremities Cranial nerves: Yes Equal, round and reactive pupils present Cognition (Neuro): normal cognition Extrem General: Yes normal to inspection, Yes full ROM and Yes capillary refill normal Psych Appearance: grossly normal Mental Status: mental status grossly normal Affect: Labile affect present Thought content: Suicidality present Medications Administered Generic Name Dose Route Start Last Admin Trade Name Freq PRN Reason Stop Dose Admin Aripiprazole 2 mg 02/11/24 09:00 02/10/24 23:07 Aripiprazole 2 Mg Tablet PO 2 mg DAILY RAUDEL Administration Discontinued Medications Generic Name Dose Route Start Last Admin Trade Name Freq PRN Reason Stop Dose Admin Lorazepam 2 mg 02/10/24 22:21 02/10/24 23:01 Lorazepam 1 Mg Tablet PO 02/10/24 22:22 2 mg ONCE ONE Administration Medical Decision Making Medical Decision Making [facility] Narrative: Patient is a 38 year old assigned male at with a history of MDD presenting to the emergency department today with increased paranoia and vague suicidal ideation. Patient's physical exam was as noted in the physical exam portion of this note. Patient's blood work was unremarkable. Patient is awaiting CARE team evaluation. Patient's disposition will be determined after CARE team eval. Patient placed in physician observation pending CARE team. Differential Diagnosis Differential Diagnoses: The differential diagnosis associated with the presentation includes Suicidal ideation Paranoia Anxiety Admission/Observation Consideration of admission/observation: Escalation of care including admission/observation considered Patient's disposition will be determined after CARE team evaluation. Lab Data [facility] Lab Attestation statement: I reviewed the patient's lab results. My interpretation of these results are in the MDM Rationale portion of this note. 02/10/24 21:44 02/10/24 21:44 Labs: Lab Results 02/10/24 02/10/24 Range/Units 21:44 21:45 WBC 8.8 (4.8-10.8) X10*3/uL RBC 5.09 (4.60-5.80) X10*6/uL Hgb 14.2 (14.0-18.0) g/dl Hct 43.3 (42.0-52.0) % MCV 85.1 (80.0-98.0) fL MCH 27.9 (27.0-33.0) pg MCHC 32.8 (31.0-36.0) g/dl RDW 14.1 (11.0-16.0) % Plt Count 249 (160-400) X10*3/uL MPV 10.2 (9.4-12.4) fL Immature Gran % (Auto) 0.5 H (0.0-0.4) % Neut % (Auto) 71.6 (45-73) % Lymph % (Auto) 19.3 L (20-40) % Johnson % (Auto) 7.5 (2-11) % Eos % (Auto) 0.6 (0-4) % Baso % (Auto) 0.5 (0-2) % Lymph # (Auto) 1.7 (1.2-4.9) X10*3/uL Johnson # (Auto) 0.7 (0.1-1.2) X10*3/uL Eos # (Auto) 0.1 (0.0-0.4) X10*3/uL Baso # (Auto) 0.0 (0.0-0.2) X10*3/uL Abs Immat Gran (auto) 0.04 H (0.00-0.03) X10*3/uL Absolute Neuts (auto) 6.3 (2.0-8.3) x10*3/uL Absolute Nucleated RBC 0.000 (0.0-0.012) X10*3/uL Nucleated RBC % (auto) 0.0 (0.0-0.2) /100WBC Sodium 140 (135-145) mmol/L Potassium 4.2 (3.3-5.1) mmol/L Chloride 105 (96-108) mmol/L Carbon Dioxide 27 (22-29) mmol/L Anion Gap 12 (12-20) BUN 15 (9-16) mg/dL Creatinine 1.17 (0.5-1.4) mg/dL Estim Creat Clear Calc 123.5 Estimated GFR > 60 Random Glucose 109 (60-115) mg/dL Calcium 9.6 (8.4-10.2) mg/dL Total Bilirubin 0.3 (0.0-1.0) mg/dL AST 16 (5-37) U/L ALT 22 (0-40) U/L Alkaline Phosphatase 84 (39-117) U/L Total Protein 7.5 (6.5-8.0) g/dL Albumin 4.6 (3.5-5.0) g/dL Urine Opiates Screen Not Detected (Not Detect) Ur Buprenorphine Scrn Not Detected (Not Detect) ng/mL Ur Oxycodone Screen Not Detected (Not Detect) ng/mL Urine Methadone Screen Not Detected (Not Detect) ng/mL Urine Fentanyl Screen Not Detected (Not Detect) Ur Barbiturates Screen Not Detected (Not Detect) Ur Phencyclidine Scrn Not Detected (Not Detect) Ur Amphetamines Screen Not Detected (Not Detect) U Benzodiazepines Scrn Not Detected (Not Detect) Urine Cocaine Screen Not Detected (Not Detect) U Marijuana (THC) Screen Not Detected (Not Detect) Ethyl Alcohol < 10 mg/dL Discharge Plan Discharge Clinical Impression: Suicidal ideation Patient Disposition: Still a Patient Prescriptions: No Action perphenazine 8 mg tablet 8 mg PO BEDTIME aripiprazole 2 mg tablet 2 mg PO DAILY trazodone 50 mg tablet 100 mg PO BEDTIME sertraline 50 mg tablet 50 mg PO DAILY Print Language: [place]
[2024-02-10 21:51] LABS: MANUAL DIFF FLAG NO
[2024-02-10 21:52] LABS: Basophils Percent Auto 0.5 % (0-2); Eosinophils Absolute Auto 0.1 X10*3/uL (0.0-0.4); Eosinophils Percent Auto 0.6 % (0-4); Hematocrit 43.3 % (42.0-52.0); Hemoglobin 14.2 g/dl (14.0-18.0); Imm Gran Abs Auto 0.04 X10*3/uL (0.00-0.03); Imm Gran Pct Auto 0.5 % (0.0-0.4); Lymphocytes Absolute Auto 1.7 X10*3/uL (1.2-4.9); Lymphocytes Percent Auto 19.3 % (20-40); Mean Corpuscular HGB Conc 32.8 g/dl (31.0-36.0); Mean Corpuscular Hemoglobin 27.9 pg (27.0-33.0); Mean Corpuscular Volume 85.1 fL (80.0-98.0); Mean Platelet Volume 10.2 fL (9.4-12.4); Monocytes Absolute Auto 0.7 X10*3/uL (0.1-1.2); Monocytes Percent Auto 7.5 % (2-11); Neutrophils Absolute Auto 6.3 x10*3/uL (2.0-8.3); Neutrophils Percent Auto 71.6 % (45-73); Platelet Count 249 X10*3/uL (160-400); Red Blood Count 5.09 X10*6/uL (4.60-5.80); Red Cell Distribution Width 14.1 % (11.0-16.0); White Blood Count 8.8 X10*3/uL (4.8-10.8)
[2024-02-10 22:09] LABS: Alanine Aminotransferase 22 U/L (0-40); Albumin Level 4.6 g/dL (3.5-5.0); Alkaline Phosphatase 84 U/L (39-117); Anion Gap 12 (12-20); Aspartate Amino Transferase 16 U/L (5-37); Bilirubin Total 0.3 mg/dL (0.0-1.0); Blood Urea Nitrogen 15 mg/dL (9-16); Calcium 9.6 mg/dL (8.4-10.2); Carbon Dioxide 27 mmol/L (22-29); Chloride 105 mmol/L (96-108); Creatinine Clr Calc Pharmacy 123.5; Estimated Glomerular Filt Rate > 60; Ethanol < 10 mg/dL; Glucose Random 109 mg/dL (60-115); Potassium 4.2 mmol/L (3.3-5.1); Sodium 140 mmol/L (135-145); Total Protein 7.5 g/dL (6.5-8.0)
[2024-02-10 22:10] LABS: Amphetamine Screen Urine Not Detected (Not Detect); Barbiturates, Urine Not Detected (Not Detect); Benzodiazepines Screen Urine Not Detected (Not Detect); Buprenorphine Scr Not Detected (Not Detect); Cannabinoid Screen Urine Not Detected (Not Detect); Cocaine Screen Urine Not Detected (Not Detect); Fentanyl, urine Not Detected (Not Detect); Methadone Screen, Urine Not Detected (Not Detect); Opiate Screen Urine Not Detected (Not Detect); Oxycodone Screen Urine Not Detected (Not Detect); Phencyclidine Screen Urine Not Detected (Not Detect)
[2024-02-10] MEDS: LORazepam 1 MG TABLET 2 MG PO (23:01)
[2024-02-10] MEDS: ARIPiprazole 2 MG TABLET PO (23:07)
--- NOTE | 2024-02-11 00:01 | PC.NURSE ---
Patient was discharged earlier and self checked in again for paranoia, patient is now demanding discharge, when explained he can discuss his concern with provider, however wants provider right at this moment, when told provider is currently attending sick patient he got very upset, mad, and started telling about his right. Ativan 2 mg PO administered with + effect. Awaiting provider to see the patient. Will continue to monitor
[2024-02-11 06:26] VITALS: RESP 20
--- NOTE | 2024-02-11 06:29 | PC.NURSE ---
Patient was up until 414 with multiple complains, demanding discharges, making multiple phone calls family member and [facility] crises hotline, meds and meals compliant, Ativan 2 mg PO helped calmed him down, care consult ordered pending evaluation, will continue to monitor
--- NOTE | 2024-02-11 07:06 | PC.NURSE ---
Assumed care of patient at 0645, patient appears to be sleeping, respirations even and unlabored, no apparent distress noted. Continue plan of care for CARE team stephane
[2024-02-11 07:35] LABS: Appearance Urine Clear; Color Urine Yellow; Glucose Urine UA Negative (Negative); Leukocyte Esterase Urine Negative (Negative); Nitrite Urine Negative (Negative); PH 6.5 (5.0-9.0); Specific Gravity - Urine 1.025 (1.005-1.025); Urine Blood Negative (Negative); Urine Ketones Trace mg/dL (Negative); Urine Protein Trace mg/dL (Neg-Trace)
[2024-02-11] MEDS: LORazepam 1 MG TABLET PO (10:05)
--- NOTE | 2024-02-11 10:09 | PC.NURSE ---
pt showering at this time, denies SI/HI. Goal oriented on getting home, completing chores and then seeking outpatient resources
[2024-02-11 10:12] VITALS: BP 142/79; PULSE 85; RESP 17; TEMP 36.6; O2SAT 95
[2024-02-11 11:50] VITALS: BP 128/74; PULSE 87; RESP 14; TEMP 36.6; O2SAT 97
== END 2024-02-11 11:52 | disposition home or self-care (01) ==
PROVIDERS: Emergency Provider Emergency Medicine Emergency Medical Services
DX: R45.851 Suicidal ideations (principal); F33.9 Major depressive disorder, recurrent, unspecified; F60.0 Paranoid personality disorder; F17.210 Nicotine dependence, cigarettes, uncomplicated; Z79.899 Other long term (current) drug therapy
CPT/HCPCS: 36415; 80053; 80307; 81003; 85025; 99281; 99284; 99285; S9485